=== PATIENT | female | born 1955 | race Caucasian/White ===

== ENCOUNTER 2019-09-26 16:02 | Inpatient (IN) | payer MEDICARE, OTHER ==
--- NOTE | 2019-09-26 16:59 | ERPHSYRPT ---
- History of Present Illness Time Seen by Provider: 09/26/19 16:27 Historian: patient Exam Limitations: no limitations Patient Subjective Stated Complaint: to er c/o vomitting and abd pain x 2days. Triage Nursing Assessment: PT to er vomiting and abd pain pt arrives pale clammy , sweating present afebrile, a@ox3. pt states sharp stabbing constant pain across lower abd. pt gaurded with movement Physician History: Patient c/o lower abdominal pain x 3 days - /, constant, aggravated by pushing on it and trying to get up , decreases with laying flat, non-radiating, associated with nausea, vomiting - denies hematemesis/eating unusual foods/trauma/similar abdominal pain before/ diarrhoea/ new meds - pt. reports hard stools x few days - reports chills, no fever - she last ate last night, has not eaten all day today Timing/Duration: day(s) (3) Activities at Onset: none Quality: fullness, pressure Abdominal Pain Onset Location: RLQ, suprapubic Pain Radiation: no radiation Severity of Pain-Max: moderate Severity of Pain-Current: moderate Modifying Factors: Improves With: coughing, lying down, movement Associated Symptoms: fever/chills, loss of appetite, nausea, vomiting Previous symptoms: no prior history Allergies/Adverse Reactions: No Known Drug Allergies Allergy (Unverified 09/26/19 16:30) Home Medications: Lisinopril [Zestril] 30 mg PO HS 09/26/19 [History] Nebivolol HCl [Bystolic] 10 mg PO BID 09/26/19 [History] Hx Influenza Vaccination/Date Given: Yes - Review of Systems Constitutional: Chills, No Fever Eyes: No Symptoms Ears, Nose, & Throat: No Symptoms Respiratory: No Symptoms Cardiac: No Symptoms Abdominal/Gastrointestinal: Abdominal Pain, Nausea, Vomiting, Constipation, Appetite Changes Genitourinary Symptoms: No Symptoms Musculoskeletal: No Symptoms Skin: No Symptoms Neurological: No Symptoms Psychological: No Symptoms Endocrine: No Symptoms Hematologic/Lymphatic: No Symptoms Immunological/Allergic: No Symptoms All Other Systems: Reviewed and Negative - Past Medical History Cardiac History: Hypertension - Past Surgical History Past Surgical History: Yes Gastrointestinal: Cholecystectomy - Social History Smoking Status: Current every day smoker Drug Use: none - Nursing Vital Signs Nursing Vital Signs: Initial Vital Signs Temperature 97.9 F 09/26/19 16:23 Pulse Rate 83 09/26/19 16:23 Respiratory Rate 16 09/26/19 16:23 Blood Pressure 141/65 09/26/19 16:23 O2 Sat by Pulse Oximetry 94 L 09/26/19 16:23 Pain Scale Pain Intensity 4 - Physical Exam General Appearance: no apparent distress, mild distress Eye Exam: PERRL/EOMI, eyes nml inspection Ears, Nose, Throat Exam: normal ENT inspection, TMs normal, pharynx normal, moist mucous membranes Neck Exam: normal inspection, non-tender, supple, full range of motion Respiratory Exam: normal breath sounds Cardiovascular Exam: regular rate/rhythm, normal heart sounds, normal peripheral pulses Gastrointestinal/Abdomen Exam: soft, normal bowel sounds, tenderness Pelvic Exam: deferred Rectal Exam: deferred Back Exam: normal inspection Extremity Exam: normal inspection Neurologic Exam: alert, oriented x 3, cooperative Skin Exam: normal color Lymphatic Exam: No adenopathy SpO2 Interpretation: normal SpO2: 94 O2 Delivery: Room Air - Course EKG Interpreted by Me: Sinus Rhythm, NORMAL AXIS, NORMAL INTERVALS, NORMAL QRS Rhythm Strip: Normal Sinus Rhythm Ordered Tests: Active Orders 24 hr Category Date Time Status EKG-ER Only STAT Care 09/26/19 18:01 Active IV Insertion STAT Care 09/26/19 17:00 Active ABDOMEN AND PELVIS W/0 CONTRAS [CT] Stat Exams 09/26/19 17:00 Taken CBC W DIFF Stat Lab 09/26/19 17:35 Completed CMP Stat Lab 09/26/19 17:35 Completed LIPASE Stat Lab 09/26/19 17:35 Completed Manual Differential NC Stat Lab 09/26/19 17:35 Completed PROTIME WITH INR Stat Lab 09/26/19 18:25 Completed PTT Stat Lab 09/26/19 18:25 Completed UA W/RFX UR CULTURE Stat Lab 09/26/19 16:59 Uncollected Transfer Order Routine Transfer 09/26/19 Ordered Medication Summary Discontinued Medications Generic Name Dose Route Start Last Admin Trade Name Freq PRN Reason Stop Dose Admin Sodium Chloride 1,000 mls @ 999 mls/hr 09/26/19 17:00 09/26/19 18:31 Sodium Chloride 0.9% 1000 Ml IV 09/26/19 18:00 999 mls/hr .Q1H1M STA Administration Sodium Chloride Confirm 09/26/19 17:13 Sodium Chloride 0.9% 1000 Ml Administered 09/26/19 17:14 Dose 1,000 mls @ ud .ROUTE .STK-MED ONE Sodium Chloride Confirm 09/26/19 18:28 Sodium Chloride 0.9% 1000 Ml Administered 09/26/19 18:29 Dose 1,000 mls @ ud .ROUTE .STK-MED ONE Lab/Rad Data: Laboratory Result Diagrams 09/26/19 17:35 09/26/19 17:35 Laboratory Results 09/26/19 09/26/19 09/26/19 Range/Units 18:25 17:35 17:35 WBC 14.1 H (4.0-10.5) K/mm3 RBC 6.09 H (4.1-5.4) M/mm3 Hgb 18.6 H (12.0-16.0) gm/dl Hct 53.5 H (35-47) % MCV 87.8 (78-100) fl MCH 30.5 (26-32) pg MCHC 34.8 (32-36) g/dl RDW 13.9 (11.5-14.0) % Plt Count 259 (150-450) K/mm3 MPV 12.2 H (6-9.5) fl PT 13.2 H (9.95-12.35) SECONDS INR 1.16 (0.8-3.0) APTT 41.4 H (25.3-37.0) SECONDS Sodium 138 (137-145) mmol/L Potassium 3.6 (3.5-5.1) mmol/L Chloride 93 L (98-107) mmol/L Carbon Dioxide 24 (22-30) mmol/L Anion Gap 23.8 H (5-15) MEQ/L BUN 27 H (7-17) mg/dL Creatinine 2.22 H (0.52-1.04) mg/dL Estimated GFR 23.5 ML/MIN Glucose 145 H (74-106) mg/dL Calcium 11.1 H (8.4-10.2) mg/dL Total Bilirubin 2.00 H (0.2-1.3) mg/dL AST 36 (14-36) U/L ALT 20 (0-35) U/L Alkaline Phosphatase 91 (38-126) U/L Serum Total Protein 8.9 H (6.3-8.2) g/dL Albumin 4.5 (3.5-5.0) g/dL Lipase < 10 L (23-300) U/L - Progress Progress Note: 09/26/19 19:17 patient seen and examined in ED room 10 VSS on arrival - CBC revealed WBC count of 14.1 09/26/19 19:20 CMP- shows elevated BUN and CR- unknown if this is new/old CT abdomen and pelvis shows- acute appendicitis- please see CT report for complete details Discussed with surgeon - advised admission and surgery later today Discussed with .: Sadi Will see patient in: hospital (observation) - Departure Departure Disposition: Observation Clinical Impression: Acute appendicitis, DONAVAN (acute kidney injury) Condition: Fair Critical Care Time: No Critical Care Time(excluding separately billable procedures): Critical 30-74 mins (30 min) Referrals: Provider,Unknown [Primary Care Provider] -
[2019-09-26] MEDS ORDERED: Sodium Chloride 0.9% 1000 ML 1,000 ML IV STA (17:00)
[2019-09-26] MEDS ORDERED: Sodium Chloride 0.9% 1000 ML 0 ML ONE (17:13)
[2019-09-26 17:41] LABS: Hematocrit 53.5 % (35-47); Hemoglobin 18.6 gm/dl (12.0-16.0); Mean Cell Volume 87.8 fl (78-100); Mean Corpuscular Hemoglobin 30.5 pg (26-32); Mean Corpuscular Hgb Concent. 34.8 g/dl (32-36); Mean Platelet Volume 12.2 fl (6-9.5); Platelet Count 259 K/mm3 (150-450); Red Blood Count 6.09 M/mm3 (4.1-5.4); Red Cell Distribution Width 13.9 % (11.5-14.0); White Blood Count 14.1 K/mm3 (4.0-10.5)
[2019-09-26 17:55] LABS: ALBUMIN 4.5 g/dL (3.5-5.0); ALKALINE PHOSPHATASE 91 U/L (38-126); ANION GAP 23.8 MEQ/L (5-15); BLOOD UREA NITROGEN 27 mg/dL (7-17); CHLORIDE 93 mmol/L (98-107); Calcium 11.1 mg/dL (8.4-10.2); Carbon Dioxide 24 mmol/L (22-30); Creatinine 1 2.22 mg/dL (0.52-1.04); Glucose 145 mg/dL (74-106); Potassium 3.6 mmol/L (3.5-5.1); SGOT/AST 36 U/L (14-36); SODIUM 138 mmol/L (137-145); Total Protein 8.9 g/dL (6.3-8.2)
[2019-09-26 18:01] LABS: SGPT/ALT 20 U/L (0-35)
[2019-09-26 18:03] LABS: LIPASE < 10 U/L (23-300)
[2019-09-26] MEDS ORDERED: Sodium Chloride 0.9% 1000 ML 1,000 ML ONE ×2 (18:28→21:05)
[2019-09-26 18:36] LABS: INR 1.16 (0.8-3.0); PROTIME 13.2 SECONDS (9.95-12.35)
[2019-09-26 18:38] LABS: PTT 41.4 SECONDS (25.3-37.0)
[2019-09-26] MEDS ORDERED: Lactated Ringers 1,000 ML IV ONE ×2 (20:22→21:07)
[2019-09-26] MEDS ORDERED: Sensorcaine 0.25% 10 ML ONE (20:22)
--- NOTE | 2019-09-26 20:49 | XRAY ---
Indication: Abdomen pain, nausea, and vomiting 2 days. Multiple contiguous axial images obtained through the abdomen and pelvis without contrast as ordered. Comparison: None Lung bases demonstrate scattered fibrosis/scarring with tiny left effusion. Heart is borderline enlarged with small pericardial effusion. Fluid distended moderate hiatal hernia presumed from gastroesophageal reflux. Stomach is fluid distended. Appendix is prominent up to 1.4 cm in diameter with mild wall thickening, periappendiceal stranding, and appendicolith at base favoring acute appendicitis. Small right abdomen and tiny pelvic free fluid possibly reactive. No walled off fluid collection or free air. Small bowel loops are abnormally distended up to 3 cm with fluid leveling possibly reactive ileus. Some of the left abdomen small bowel loops demonstrates wall thickening/stranding possibly superimposed enteritis. Mild scattered descending and sigmoid diverticulosis. Previous cholecystectomy. Tiny hepatic calcified granulomas. Remaining liver, pancreas, spleen, adrenal glands, kidneys, ureters, bladder, and uterus appear unremarkable for noncontrast exam. Moderate scattered aortoiliac calcifications without AAA. Osseous structures themselves is mild/moderate degenerative changes throughout the thoracolumbar spine. Indeterminant 1 cm round L4 vertebral body sclerotic lesion. Bilateral perineural cysts approximately S3-S4 levels. Impression: 1. Abnormal appendix as detailed favoring acute appendicitis. Small free fluid presumed reactive. 2. Fluid distended stomach and small bowel loops with fluid leveling possibly reactive ileus. Also left abdomen small bowel loops with wall thickening/stranding possibly superimposed enteritis. Mild colonic diverticulosis. 3. Fluid distended hiatal hernia presumed from gastroesophageal reflux. 4. Borderline cardiomegaly with small pericardial effusion. 5. Multilevel degenerative spondylosis, indeterminant L4 sclerotic lesion, and bilateral sacral perineural cysts. CTDI 21.40
[2019-09-26] MEDS ORDERED: MEFOXIN IV ONE (21:03)
[2019-09-26] MEDS ORDERED: D5W 2 GM/100 ML IV ONE (21:03)
[2019-09-26] MEDS ORDERED: MEFOXIN 2 GM PREMIX** 2 GM/50 ML ML IV ONE (21:11)
[2019-09-26] MEDS ORDERED: Lactated Ringers 1,000 ML IV SCH (21:30)
[2019-09-26] MEDS ORDERED: DIPRIVAN 200 MG/20 ML IV ONE (21:47)
[2019-09-26] MEDS ORDERED: Zemuron 100 MG/10 ML ONE (21:47)
[2019-09-26] MEDS ORDERED: SUBLIMAZE 100 MCG/2 ML ONE (21:47)
[2019-09-26] MEDS ORDERED: Quelicin Fliptop 200 MG/10 ML ONE (21:47)
[2019-09-26] MEDS ORDERED: PHENYLEPHRINE HCL IV ONE (22:00)
[2019-09-26] MEDS ORDERED: MEFOXIN 2 GM PREMIX** 2 GM/50 ML ML IV SCH (22:00)
[2019-09-26] MEDS ORDERED: TORAdol 30 mg Injection ONE (22:04)
[2019-09-26] MEDS ORDERED: BRIDION 200MG/2ML IV ONE (22:04)
[2019-09-26] MEDS ORDERED: Decadron 4 MG INJ ONE (22:04)
[2019-09-26] MEDS ORDERED: Zofran 4 MG/2 ML VIAL ONE (22:04)
[2019-09-26] MEDS ORDERED: Lactated Ringers 2,000 ML IV ONE (22:26)
[2019-09-26] MEDS ORDERED: Lasix 20 MG/2 ML ONE (23:07)
[2019-09-26] MEDS ORDERED: Sodium Chloride 3 ML UD NEBULES IH ONE (23:19)
[2019-09-26] MEDS ORDERED: Xopenex 1.25 MG/0.5 ML UD NEBULE IH ONE ×2 (23:19→23:38)
[2019-09-27] MEDS: D5W/0.45NS W/ 20mEq KCl 1000 ML 1,000 ML IV SCH ×2 (01:55→14:30)
[2019-09-27] MEDS: Unasyn 3GM / NaCl 100ML 3 GM/100 ML IVPB IV SCH ×3 (01:55→17:38)
[2019-09-27] MEDS: MORPHINE SULFATE 2 MG INJ IV PRN ×2 (01:56→16:18)
[2019-09-27 02:05] LABS: Appearance CLOUDY (CLEAR); Bilirubin NEGATIVE (NEGATIVE); Blood MODERATE Ery/ul (0-5); Epithelial Cells RARE /HPF (FEW); Glucose NEGATIVE (NEGATIVE); Hyaline Casts 0-2 /LPF (0-2); Ketones NEGATIVE (NEGATIVE); Leukocyte Esterase NEGATIVE (NEGATIVE); Mucus SLIGHT /HPF (NEGATIVE); Nitrite NEGATIVE (NEGATIVE); Protein,Urine Dip 30 (Negative); Specific Gravity 1.011 (1.005-1.025); Urobilinogen NEGATIVE mg/dL (0-1); WBC 0-2 /HPF (0-5)
[2019-09-27 05:20] LABS: Hemoglobin 16.3 gm/dl (12.0-16.0); Mean Cell Volume 89.1 fl (78-100); Mean Corpuscular Hemoglobin 30.2 pg (26-32); Mean Platelet Volume 12.5 fl (6-9.5); Platelet Count 240 K/mm3 (150-450); Red Blood Count 5.39 M/mm3 (4.1-5.4); Red Cell Distribution Width 13.8 % (11.5-14.0); White Blood Count 10.6 K/mm3 (4.0-10.5)
[2019-09-27 05:43] LABS: BAND 11 % (0.0-2.0); Lymphocytes 27 % (24-44); Monocyte 10 % (0.0-12.0); Neutrophils 52 % (36.0-66.0); Platelet Estimate NORMAL (NORMAL); Total Cells Counted 100
--- NOTE | 2019-09-27 09:00 | XRAY ---
Indication: Cough. Status post appendectomy. Comparison: None Portable chest demonstrates bibasilar atelectasis, left greater than right. Upper lungs clear. No pneumothorax. Heart is borderline enlarged. Bony thorax intact. Impression: Bibasilar atelectasis and borderline cardiomegaly. Comment: Preliminary interpretation was made by [facility]. No discrepancy.
[2019-09-27] MEDS: Bystolic 5 MG PO SCH ×2 (10:42→21:15)
[2019-09-27] MEDS ORDERED: CEPACOL SORE THROAT LOZENGE PO PRN (18:08)
[2019-09-27] MEDS: Zestril 10 MG PO SCH (21:15)
[2019-09-28] MEDS: D5W/0.45NS W/ 20mEq KCl 1000 ML 1,000 ML IV SCH (02:28)
[2019-09-28] MEDS: MORPHINE SULFATE 2 MG INJ IV PRN (04:46)
[2019-09-28] MEDS: Zofran 4 MG/2 ML VIAL IV PRN (04:46)
[2019-09-28 05:07] LABS: Hematocrit 39.8 % (35-47); Hemoglobin 13.3 gm/dl (12.0-16.0); Mean Cell Volume 90.5 fl (78-100); Mean Corpuscular Hemoglobin 30.2 pg (26-32); Mean Corpuscular Hgb Concent. 33.4 g/dl (32-36); Mean Platelet Volume 12.4 fl (6-9.5); Platelet Count 215 K/mm3 (150-450); Red Cell Distribution Width 13.7 % (11.5-14.0); White Blood Count 12.3 K/mm3 (4.0-10.5)
[2019-09-28 05:19] LABS: ANION GAP 17.5 MEQ/L (5-15); Calcium 8.1 mg/dL (8.4-10.2); Creatinine 1 3.46 mg/dL (0.52-1.04); Potassium 4.2 mmol/L (3.5-5.1)
[2019-09-28] MEDS: Unasyn 3GM / NaCl 100ML 3 GM/100 ML IVPB IV SCH ×2 (06:09→17:36)
[2019-09-28] MEDS: NORCO 5/325 MG PO PRN ×3 (08:10→21:38)
[2019-09-28] MEDS: Bystolic 5 MG PO SCH ×2 (09:33→21:38)
[2019-09-28] MEDS ORDERED: Sodium Chloride 0.9% 500 ML 500 ML IV ONE (10:27)
[2019-09-28] MEDS ORDERED: Dulcolax 10 MG SUPP PR ONE (10:30)
[2019-09-28] MEDS: Dextrose 5% -0.45 NaCl 1000 ML 1,000 ML IV SCH ×2 (10:47→23:06)
[2019-09-28] MEDS ORDERED: CHLORASEPTIC SPRAY 180 ML PO PRN (20:14)
[2019-09-28] MEDS: Zestril 10 MG PO SCH (21:38)
[2019-09-29] MEDS: NORCO 5/325 MG PO PRN ×2 (03:00→14:23)
[2019-09-29 05:16] LABS: Hematocrit 35.7 % (35-47); Hemoglobin 11.6 gm/dl (12.0-16.0); Mean Cell Volume 92.2 fl (78-100); Mean Corpuscular Hgb Concent. 32.5 g/dl (32-36); Platelet Count 196 K/mm3 (150-450); Red Blood Count 3.87 M/mm3 (4.1-5.4); Red Cell Distribution Width 13.5 % (11.5-14.0); White Blood Count 14.1 K/mm3 (4.0-10.5)
[2019-09-29 05:17] LABS: Mean Corpuscular Hemoglobin 29.9 pg (26-32)
[2019-09-29 05:29] LABS: ANION GAP 14.2 MEQ/L (5-15); Creatinine 1 2.78 mg/dL (0.52-1.04); MAGNESIUM 1.7 mg/dL (1.6-2.3); Potassium 4.1 mmol/L (3.5-5.1)
[2019-09-29] MEDS: Unasyn 3GM / NaCl 100ML 3 GM/100 ML IVPB IV SCH (06:03)
[2019-09-29] MEDS: Zofran 4 MG/2 ML VIAL IV PRN (07:41)
[2019-09-29] MEDS: Bystolic 5 MG PO SCH ×2 (08:29→22:33)
[2019-09-29] MEDS: Dextrose 5% -0.45 NaCl 1000 ML 1,000 ML IV SCH (11:04)
--- NOTE | 2019-09-29 11:13 | HP ---
ADMISSION DIAGNOSIS: Acute appendicitis. HISTORY OF PRESENT ILLNESS: The patient is seen in the hallway proceeding the surgery. She had 24 hours of abdominal pain and some nausea. CT is positive. White count is elevated. MEDICATIONS: Two antihypertensives including lisinopril and Bystolic. ALLERGIES: NONE. PAST SURGICAL HISTORY: Cholecystectomy. SOCIAL HISTORY: Positive tobacco. Negative ETOH. FAMILY HISTORY: Negative. REVIEW OF SYSTEMS: CVS: Controlled hypertension. PULMONARY: History of tobacco abuse. GI: Present illness. : Negative. PHYSICAL EXAMINATION: She is moderately obese. She is tender in the right lower quadrant. VITAL SIGNS: Normal. CHEST: Clear. COR: Regular. ABDOMEN: Pain right lower quadrant. LAB DATA AND TESTS: White count elevated. CT positive for acute appendicitis. IMPRESSION: Acute appendicitis. Procedure discussed with her and she wishes to proceed. PLAN: Laparoscopic appendectomy.
--- NOTE | 2019-09-29 11:25 | OP ---
SURGERY DATE/TIME: 09/26/20192151 PREOPERATIVE DIAGNOSIS: Acute appendicitis. POSTOPERATIVE DIAGNOSIS: Acute perforated appendicitis of quite some age with multiple intra-abdominal abscesses. PROCEDURE: Laparoscopic appendectomy of a gangrenous perforated appendix with appendicolith and evacuation of multiple abscesses with drainage. SURGEON: Gigi Elizabeth M.D. ANESTHESIA: General. COMPLICATIONS: None. CONDITION: Stable. INDICATION: The patient presented to the emergency room with abdominal pain at least [address] positive. DESCRIPTION OF PROCEDURE: Taken to surgery. General anesthetic. Routine prep and drape. Veress needle inserted. Opening pressure of 1 and insufflating pressure 14. A 12 trocar introduced. Camera introduced. This was gross perforated acute abdomen unclear initially although very feculent in nature probably diverticular appendiceal although even upper abdominal ulcer is not ruled out. Left perisplenic, left suprahepatic, right suprahepatic, right gutter, left lower abdomen, right lower abdomen were all sequentially evacuated. Loose adhesions were mobilized with a blunt round instrument. The cecum was a little more dense and stuck and the inflammatory process was a hair worse on the right than the left. A little worse in the lower abdomen than upper abdomen. A gangrenous ruptured appendix with appendicolith was identified this was able to be mobilized and rolled up some. This side of the base was taken with cartridge satisfactorily. Appendix placed in a condom bag and removed. The field irrigated. 10 BEBO was down the right gutter secured with 2-0 PDS. The 12 site was closed with hole closure device with 0 Vicryl. Skin closed with 2-0 PDS. Sterile dressing applied. Findings discussed with the in the waiting room.
[2019-09-29] MEDS: FLAGYL 500 MG IVPB 500 MG/100 ML BAG IV SCH ×2 (14:15→22:34)
[2019-09-29] MEDS: ENOXAPARIN SODIUM SQ SCH (14:19)
--- NOTE | 2019-09-29 14:32 | XRAY ---
Indication: Bilateral leg pain. Two-dimensional sonogram and color Doppler imaging of the major venous vessels of the left and right leg was performed. Comparison: None No thrombus seen in the examined deep venous vessels of the left and right leg including greater saphenous vein. Veins demonstrate normal compressibility. Venous waveforms are normal with and without augmentation. Impression: Left and right legs negative for DVT.
[2019-09-29] MEDS ORDERED: Sodium Chloride 0.9% 500 ML 500 ML IV SCH (15:00)
[2019-09-29] MEDS: MERREM 500MG 500 MG in Sodium Chloride 100ML MINI-BAG PLUS 100 ML IV SCH (17:19)
[2019-09-29] MEDS: Zestril 10 MG PO SCH (22:45)
[2019-09-30] MEDS: NORCO 5/325 MG PO PRN (01:42)
[2019-09-30] MEDS: Zofran 4 MG/2 ML VIAL IV PRN ×3 (01:42→09:52)
[2019-09-30] MEDS: Dextrose 5% -0.45 NaCl 1000 ML 1,000 ML IV SCH ×2 (01:42→17:44)
[2019-09-30] MEDS: MORPHINE SULFATE 4 MG INJ IV PRN ×2 (04:07→09:53)
[2019-09-30] MEDS ORDERED: PROTONIX 40 MG IV IV ONE (04:49)
[2019-09-30 05:15] LABS: Hematocrit 36.3 % (35-47); Hemoglobin 12.1 gm/dl (12.0-16.0); Mean Cell Volume 91.2 fl (78-100); Mean Corpuscular Hemoglobin 30.4 pg (26-32); Mean Corpuscular Hgb Concent. 33.3 g/dl (32-36); Mean Platelet Volume 12.3 fl (6-9.5); Platelet Count 234 K/mm3 (150-450); Red Blood Count 3.98 M/mm3 (4.1-5.4); Red Cell Distribution Width 13.6 % (11.5-14.0); White Blood Count 17.2 K/mm3 (4.0-10.5)
[2019-09-30] MEDS: FLAGYL 500 MG IVPB 500 MG/100 ML BAG IV SCH (05:21)
[2019-09-30 05:29] LABS: ANION GAP 10.7 MEQ/L (5-15); BILIRUBIN,TOTAL 0.6 mg/dL (0.2-1.3); Calcium 8.4 mg/dL (8.4-10.2); Creatinine 1 1.75 mg/dL (0.52-1.04); Potassium 3.3 mmol/L (3.5-5.1); Total Protein 6.3 g/dL (6.3-8.2)
[2019-09-30 06:18] LABS: Lymphocytes 19 % (24-44); Monocyte 4 % (0.0-12.0); Neutrophils 77 % (36.0-66.0); Total Cells Counted 100
[2019-09-30 06:19] LABS: ANISOCYTOSIS 1+; Platelet Estimate NORMAL (NORMAL); Poikilocytosis 1+
[2019-09-30] MEDS: MERREM 500MG 500 MG in Sodium Chloride 100ML MINI-BAG PLUS 100 ML IV SCH (06:39)
[2019-09-30] MEDS ORDERED: Phenergan 25 MG INJ IV PRN (07:54)
[2019-09-30] MEDS ORDERED: Lasix 20 MG/2 ML IV SCH (08:00)
[2019-09-30] MEDS: CLINDAMYCIN-D5W 900 MG/50 ML*** 900 MG/50 ML BAG IV SCH ×3 (08:09→22:03)
[2019-09-30] MEDS: ENOXAPARIN SODIUM SQ SCH (08:46)
[2019-09-30] MEDS: LOPRESSOR 5 MG/5 ML INJECTION IV SCH ×3 (08:46→18:19)
[2019-09-30] MEDS: Bystolic 5 MG PO SCH ×2 (11:23→22:01)
--- NOTE | 2019-09-30 11:26 | XRAY ---
Indication: Epigastric pain, nausea, and vomiting. Status post appendectomy 4 days ago. Comparison: None KUB appears nonacute and nonobstructed with cholecystectomy clips and right lower quadrant surgical drainage tubing. Solid organs unremarkable. Osseous structures intact with mild degenerative changes throughout the spine. Visualized lung bases demonstrates bibasilar infiltrates versus atelectasis and tiny left effusion. Impression: 1. Negative KUB with surgical drainage in situ. 2. Incidental bibasilar infiltrates/atelectasis and tiny left effusion.
[2019-09-30] MEDS: Merrem 1 GM 1 G in Sodium Chloride 100ML MINI-BAG PLUS 100 ML IV SCH (17:44)
[2019-10-01] MEDS: LOPRESSOR 5 MG/5 ML INJECTION IV SCH ×4 (00:01→17:58)
[2019-10-01] MEDS: Dextrose 5% -0.45 NaCl 1000 ML 1,000 ML IV SCH ×2 (05:11→20:22)
[2019-10-01] MEDS: CLINDAMYCIN-D5W 900 MG/50 ML*** 900 MG/50 ML BAG IV SCH ×3 (05:12→20:23)
[2019-10-01 05:18] LABS: Hematocrit 32.3 % (35-47); Hemoglobin 10.7 gm/dl (12.0-16.0); Mean Cell Volume 92.3 fl (78-100); Mean Corpuscular Hemoglobin 30.6 pg (26-32); Mean Corpuscular Hgb Concent. 33.1 g/dl (32-36); Mean Platelet Volume 12.1 fl (6-9.5); Platelet Count 257 K/mm3 (150-450); Red Cell Distribution Width 13.8 % (11.5-14.0)
[2019-10-01 05:43] LABS: ALBUMIN 2.5 g/dL (3.5-5.0); ANION GAP 9.8 MEQ/L (5-15); BILIRUBIN,TOTAL 0.4 mg/dL (0.2-1.3); Creatinine 1 1.33 mg/dL (0.52-1.04); Potassium 3.5 mmol/L (3.5-5.1); Total Protein 5.4 g/dL (6.3-8.2)
[2019-10-01 05:52] LABS: BAND 2 % (0.0-2.0); Lymphocytes 19 % (24-44); Monocyte 1 % (0.0-12.0); Neutrophils 78 % (36.0-66.0); Platelet Estimate NORMAL (NORMAL); Total Cells Counted 100
[2019-10-01] MEDS: Merrem 1 GM 1 G in Sodium Chloride 100ML MINI-BAG PLUS 100 ML IV SCH (06:11)
[2019-10-01] MEDS ORDERED: PHARMACY DOSING REQUIRED: VANCOMYCIN IV ONE (08:15)
[2019-10-01] MEDS ORDERED: Lasix 20 MG/2 ML IV SCH (09:00)
[2019-10-01] MEDS: VANCOMYCIN 1 GRAM/200 ML BAG 1 GM/200 ML PIGGYBACK IV SCH (09:45)
[2019-10-01] MEDS: PROTONIX 40 MG IV IV SCH (09:50)
[2019-10-01] MEDS: Bystolic 5 MG PO SCH ×2 (09:53→20:23)
[2019-10-01] MEDS: ENOXAPARIN SODIUM SQ SCH (09:55)
[2019-10-01] MEDS ORDERED: MAXIPIME 1 GM** 1 G in Dextrose 5%/Water IV Soln. 100ML PLUS BAG 100 ML IV SCH (10:00)
[2019-10-01] MEDS: MAXIPIME 1 GM** 1 G in Dextrose 5%/Water IV Soln. 100ML PLUS BAG 100 ML IV SCH (13:34)
[2019-10-02] MEDS: LOPRESSOR 5 MG/5 ML INJECTION IV SCH ×3 (00:51→12:04)
[2019-10-02] MEDS: VANCOMYCIN 1 GRAM/200 ML BAG 1 GM/200 ML PIGGYBACK IV SCH (02:53)
[2019-10-02 04:55] LABS: Hematocrit 32.5 % (35-47); Hemoglobin 10.6 gm/dl (12.0-16.0); Mean Cell Volume 92.6 fl (78-100); Mean Corpuscular Hemoglobin 30.2 pg (26-32); Mean Corpuscular Hgb Concent. 32.6 g/dl (32-36); Mean Platelet Volume 11.6 fl (6-9.5); Platelet Count 272 K/mm3 (150-450); Red Blood Count 3.51 M/mm3 (4.1-5.4); Red Cell Distribution Width 13.7 % (11.5-14.0); White Blood Count 24.6 K/mm3 (4.0-10.5)
[2019-10-02 05:03] LABS: ALBUMIN 2.6 g/dL (3.5-5.0); ANION GAP 11.1 MEQ/L (5-15); BILIRUBIN,TOTAL 0.4 mg/dL (0.2-1.3); Calcium 8.2 mg/dL (8.4-10.2); Creatinine 1 1.08 mg/dL (0.52-1.04); Potassium 3.3 mmol/L (3.5-5.1); Total Protein 5.6 g/dL (6.3-8.2)
[2019-10-02 05:17] LABS: ANISOCYTOSIS RARE; BAND 1 % (0.0-2.0); Eosinophil 1 % (0.00-3.0); Lymphocytes 13 % (24-44); Monocyte 14 % (0.0-12.0); Neutrophils 71 % (36.0-66.0); Platelet Estimate NORMAL (NORMAL); Targert Cells RARE; Total Cells Counted 100; Toxic Granulation RARE
[2019-10-02] MEDS: Bystolic 5 MG PO SCH (08:12)
[2019-10-02] MEDS: ENOXAPARIN SODIUM SQ SCH (08:12)
[2019-10-02] MEDS: PROTONIX 40 MG IV IV SCH (08:12)
[2019-10-02] MEDS: CLINDAMYCIN-D5W 900 MG/50 ML*** 900 MG/50 ML BAG IV SCH ×3 (08:13→13:12)
[2019-10-02] MEDS: Dextrose 5% -0.45 NaCl 1000 ML 1,000 ML IV SCH (08:13)
[2019-10-02] MEDS ORDERED: Sodium Chloride 0.9% W/ 20 mEq KCl/LITER 1,000 ML IV SCH (10:30)
[2019-10-02 12:02] VITALS: BP 124/70; PULSE 80; O2SAT 95
[2019-10-02] MEDS: MAXIPIME 1 GM** 1 G in Dextrose 5%/Water IV Soln. 100ML PLUS BAG 100 ML IV SCH (12:04)
--- NOTE | 2019-10-02 19:49 | XRAY ---
Indication: Abdomen pain. Status post appendectomy. Abscess. Multiple contiguous axial images obtained through the abdomen and pelvis using 80 cc Isovue 370 contrast only. Comparison: September 26, 2019. Lung bases demonstrates new small bilateral pleural effusions with mild bibasilar compressive atelectasis. Heart remains enlarged. Again small hiatal hernia. There has been interval appendectomy with right abdomen percutaneous drainage tubing with the tip in the right lower quadrant. New small perihepatic and pelvic free fluid. Also new left mid abdomen 4.8 x 7.8 x 6.5 cm walled off fluid collection favoring abscess. Small and large bowel loops are mildly fluid distended with fluid leveling favoring ileus. Small bowel loops adjacent to the abscess demonstrates circumferential wall thickening and stranding, probable reactive. No free air. Again previous cholecystectomy and tiny calcified hepatic granulomas. Remaining liver, pancreas, spleen, adrenal glands, kidneys, ureters, bladder, and uterus appear unremarkable. Stable moderate aortoiliac calcifications. No AAA or pathological retroperitoneal lymphadenopathy. Impression: 1. Status post appendectomy with drainage tubing in situ. Small abdomen/pelvic free fluid with left midabdomen abscess as detailed. Small bowel wall thickening and stranding adjacent to abscess probably reactive. 2. Small and large bowel ileus. 3. Cardiomegaly with new bilateral pleural effusions concerning for cardiac decompensation versus fluid overload. 4. Again incidental small hiatal hernia. CTDI 18.68
== END 2019-10-02 15:50 | disposition short-term general hospital (02) | DRG 372 ==
LOC: ED 16:02 → MED SURG 21:33 → UNDOADMOB 21:33 → OBSVTOIN 21:33 → INTOOBSV 21:33 → OBSVTOIN 23:41 → MED SURG 23:41
PROVIDERS: ADMIT Surgery; ATTEND Surgery
DX: K35.33 Acute appendicitis with perforation, localized peritonitis, and gangrene, with abscess (principal); K68.11 Postprocedural retroperitoneal abscess; R11.2 Nausea with vomiting, unspecified; I10 Essential (primary) hypertension; R79.89 Other specified abnormal findings of blood chemistry; Z79.899 Other long term (current) drug therapy
CPT/HCPCS: 36000; 36415; 71045; 74018; 74176; 74177; 80048; 80053; 81001; 83690; 83735; 84484; 85025; 85027; 85610; 85730; 87077; 87086; 87186; 88304; 93005; 93970; 94640; 94760; 96360; 96365; 99140; 99284; 99291; J0295; J0330; J0692; J0694; J1100; J1650; J1885; J1940; J2270; J2370; J2405; J2550; J2704; J3010; A9270-GY; J3370

== ENCOUNTER 2019-10-20 19:31 | Emergency (ER) | payer MEDICARE, OTHER ==
--- NOTE | 2019-10-20 20:08 | ERPHSYRPT ---
- History of Present Illness Time Seen by Provider: 10/20/19 20:08 Historian: patient, family Exam Limitations: no limitations Physician History: 64 y/o white female presents after a laparoscopic appendectomy for a ruptured appendicitis approx 3 weeks ago. pt had post op intraabd abscesses necessitating drainage. he has mild epigastric abd pain. what she is primarily concerned about is sore throat and weakness. pt unable to take in oral intake secondary to sore throat. pt is scheduled for an upper endoscopy tomorrow. Timing/Duration: week(s) (1 to 2), worse Quality: sharpness, stabbing Abdominal Pain Onset Location: epigastric (mild ) Severity of Pain-Max: mild Severity of Pain-Current: mild Modifying Factors: Improves With: other (moderate to severe sore throat) Associated Symptoms: weakness, other (other sx secondary to intubation and surgical procedures) Allergies/Adverse Reactions: No Known Drug Allergies Allergy (Verified 10/20/19 20:26) Home Medications: Lisinopril [Zestril] 30 mg PO BID 09/26/19 [History] Nebivolol HCl [Bystolic] 10 mg PO BID 09/26/19 [History] Amlodipine Besylate 10 mg PO DAILY 10/20/19 [History] Clonidine HCl 0.1 mg [Catapres 0.1 MG] 0.1 mg PO BID 10/20/19 [History] Ferrous Sulfate 650 mg PO DIRECTIONS UNKNOWN 10/20/19 [History] Furosemide [Lasix] 20 mg PO DAILY 10/20/19 [History] Hydrochlorothiazide 25 mg PO DAILY 10/20/19 [History] Magnesium Oxide 800 mg PO BID 10/20/19 [History] Potassium Chloride 15 ml PO DAILY 10/20/19 [History] - Review of Systems Constitutional: Weakness Eyes: No Symptoms Ears, Nose, & Throat: Throat Pain Respiratory: No Symptoms Cardiac: No Symptoms Abdominal/Gastrointestinal: Abdominal Pain (mild epigastric), Dysphagia, Appetite Changes Genitourinary Symptoms: No Symptoms Musculoskeletal: No Symptoms Neurological: No Symptoms Psychological: No Symptoms Endocrine: No Symptoms Hematologic/Lymphatic: No Symptoms Immunological/Allergic: No Symptoms All Other Systems: Reviewed and Negative - Past Medical History Pertinent Past Medical History: Yes Neurological History: No Pertinent History ENT History: Cataracts Cardiac History: High Cholesterol, Hypertension Respiratory History: No Pertinent History Endocrine Medical History: No Pertinent History Musculoskeletal History: No Pertinent History GI Medical History: No Pertinent History, GERD History: No Pertinent History Psycho-Social History: No Pertinent History Female Reproductive Disorders: No Pertinent History - Past Surgical History Neuro Surgical History: No Pertinent History Cardiac: No Pertinent History Respiratory: No Pertinent History Genitourinary: No Pertinent History Musculoskeletal: No Pertinent History Female Surgical History: No Pertinent History - Social History How long have you smoked: 40 yrs Exposure to second hand smoke: No - Nursing Vital Signs Nursing Vital Signs: Initial Vital Signs Temperature 98.6 F 10/20/19 20:02 Pulse Rate 78 10/20/19 20:02 Respiratory Rate 16 10/20/19 20:02 Blood Pressure 173/75 10/20/19 20:02 O2 Sat by Pulse Oximetry 100 10/20/19 20:02 Pain Scale Pain Intensity 5 - Physical Exam General Appearance: mild distress, alert, anxiety Eye Exam: PERRL/EOMI, eyes nml inspection Ears, Nose, Throat Exam: normal ENT inspection, dry mucous membranes, pharyngeal erythema Neck Exam: normal inspection, non-tender, supple, full range of motion Respiratory Exam: normal breath sounds, lungs clear, airway intact, No chest tenderness, No respiratory distress Cardiovascular Exam: regular rate/rhythm, normal heart sounds, normal peripheral pulses Gastrointestinal/Abdomen Exam: soft, normal bowel sounds, tenderness (mild epigastric. incision sites clean dry and intact), No distention, No guarding, No rebound Pelvic Exam: not done Rectal Exam: not done Back Exam: normal inspection, normal range of motion, No CVA tenderness, No vertebral tenderness Extremity Exam: normal inspection, normal range of motion, pelvis stable Neurologic Exam: alert, oriented x 3, cooperative, hook loader II-XII nml as tested Skin Exam: normal color, warm, dry Lymphatic Exam: No adenopathy SpO2 Interpretation: normal O2 Delivery: Room Air Ordered Tests: Active Orders 24 hr Category Date Time Status IV Insertion STAT Care 10/20/19 20:39 Active ABDOMEN AND PELVIS W/0 CONTRAS [CT] Stat Exams 10/20/19 20:39 Taken AMYLASE Stat Lab 10/20/19 21:37 Completed CBC W DIFF Stat Lab 10/20/19 21:37 Completed CMP Stat Lab 10/20/19 21:37 Completed LIPASE Stat Lab 10/20/19 21:37 Completed Lactic Acid Stat Lab 10/20/19 21:50 Completed Manual Differential NC Stat Lab 10/20/19 21:37 Completed UA W/RFX UR CULTURE Stat Lab 10/20/19 20:39 Uncollected Medication Summary Generic Name Dose Route Start Last Admin Trade Name Lei PRN Reason Stop Dose Admin Lidocaine HCl 10 ml 10/20/19 21:36 10/20/19 22:04 Xylocaine Hcl Viscous * MM 11/19/19 21:35 10 ml PRN PRN Administration PAIN Discontinued Medications Generic Name Dose Route Start Last Admin Trade Name Lei PRN Reason Stop Dose Admin Hydrocodone Bitart/Acetaminophen 10 ml 10/20/19 21:38 10/20/19 22:15 Hydrocodone-Acetamin 2.5-108/5 Ml Solution PO 10/20/19 21:39 10 ml STAT STA Administration Sodium Chloride 1,000 mls @ 999 mls/hr 10/20/19 20:39 10/20/19 21:40 Sodium Chloride 0.9% 1000 Ml IV 10/20/19 21:39 999 mls/hr .Q1H1M STA Administration Sodium Chloride Confirm 10/20/19 21:38 Sodium Chloride 0.9% 1000 Ml Administered 10/20/19 21:39 Dose 1,000 mls @ ud .ROUTE .STK-MED ONE Ondansetron HCl 4 mg 10/20/19 20:39 10/20/19 21:39 Zofran 4 Mg/2 Ml Vial IV 10/20/19 20:40 4 mg STAT ONE Administration Ondansetron HCl Confirm 10/20/19 21:38 Zofran 4 Mg/2 Ml Vial Administered 10/20/19 21:39 Dose 4 mg .ROUTE .STK-MED ONE Lab/Rad Data: Laboratory Result Diagrams 10/20/19 21:37 10/20/19 21:37 Laboratory Results 10/20/19 10/20/19 10/20/19 Range/Units 21:50 21:37 21:37 WBC 17.2 H (4.0-10.5) K/mm3 RBC 2.91 L (4.1-5.4) M/mm3 Hgb 8.6 L (12.0-16.0) gm/dl Hct 26.3 L (35-47) % MCV 90.4 (78-100) fl MCH 29.6 (26-32) pg MCHC 32.7 (32-36) g/dl RDW 13.2 (11.5-14.0) % Plt Count 425 (150-450) K/mm3 MPV 10.9 H (6-9.5) fl Sodium 129 L (137-145) mmol/L Potassium 3.6 (3.5-5.1) mmol/L Chloride 91 L (98-107) mmol/L Carbon Dioxide 27 (22-30) mmol/L Anion Gap 14.8 (5-15) MEQ/L BUN 16 (7-17) mg/dL Creatinine 0.85 (0.52-1.04) mg/dL Estimated GFR > 60.0 ML/MIN Glucose 129 H (74-106) mg/dL Lactic Acid 1.4 (0.4-2.0) Calcium 8.9 (8.4-10.2) mg/dL Total Bilirubin 0.40 (0.2-1.3) mg/dL AST 18 (14-36) U/L ALT 14 (0-35) U/L Alkaline Phosphatase 88 (38-126) U/L Serum Total Protein 7.2 (6.3-8.2) g/dL Albumin 3.4 L (3.5-5.0) g/dL Amylase 58 (30-110) U/L Lipase 50 (23-300) U/L - Progress Progress: improved, pain not gone completely, re-examined Progress Note: 10/20/19 22:23 ct abd/pelvis-no evidence of intraabd fluid collection/abscess. persistent inflammatory changes in the central mesentery and in the pararenal space. thickening of wall of the distal esophagus possibly esophagitis. small bilat pleural effusion with atelectasis Counseled pt/family regarding: lab results, diagnosis, need for follow-up, rad results - Departure Departure Disposition: Home Clinical Impression: Esophagitis, Dysphagia Condition: Stable Critical Care Time: No Referrals: ARON OTT [Primary Care Provider] - Additional Instructions: clear liquids only. keep endoscopy appointment in the morning.
[2019-10-20] MEDS ORDERED: Sodium Chloride 0.9% 1000 ML 1,000 ML IV STA (20:39)
[2019-10-20] MEDS ORDERED: Zofran 4 MG/2 ML VIAL IV ONE (20:39)
[2019-10-20] MEDS ORDERED: XYLOCAINE HCl Viscous MM PRN (21:36)
[2019-10-20 21:37] LABS: Hematocrit 26.3 % (35-47); Hemoglobin 8.6 gm/dl (12.0-16.0); Mean Cell Volume 90.4 fl (78-100); Mean Corpuscular Hemoglobin 29.6 pg (26-32); Mean Corpuscular Hgb Concent. 32.7 g/dl (32-36); Mean Platelet Volume 10.9 fl (6-9.5); Platelet Count 425 K/mm3 (150-450); Red Blood Count 2.91 M/mm3 (4.1-5.4); Red Cell Distribution Width 13.2 % (11.5-14.0); White Blood Count 17.2 K/mm3 (4.0-10.5)
[2019-10-20] MEDS ORDERED: Sodium Chloride 0.9% 1000 ML 1,000 ML ONE (21:38)
[2019-10-20] MEDS ORDERED: HYDROCODONE-ACETAMIN 2.5-108/5 ML SOLUTION PO STA (21:38)
[2019-10-20] MEDS ORDERED: Zofran 4 MG/2 ML VIAL ONE (21:38)
[2019-10-20 21:48] LABS: ALBUMIN 3.4 g/dL (3.5-5.0); ALKALINE PHOSPHATASE 88 U/L (38-126); AMYLASE 58 U/L (30-110); ANION GAP 14.8 MEQ/L (5-15); BLOOD UREA NITROGEN 16 mg/dL (7-17); CHLORIDE 91 mmol/L (98-107); Calcium 8.9 mg/dL (8.4-10.2); Carbon Dioxide 27 mmol/L (22-30); Creatinine 1 0.85 mg/dL (0.52-1.04); Glucose 129 mg/dL (74-106); LIPASE 50 U/L (23-300); Potassium 3.6 mmol/L (3.5-5.1); SGOT/AST 18 U/L (14-36); SGPT/ALT 14 U/L (0-35); SODIUM 129 mmol/L (137-145); Total Protein 7.2 g/dL (6.3-8.2)
[2019-10-20] MEDS ORDERED: XYLOCAINE HCl Viscous ONE (22:01)
[2019-10-20 23:13] LABS: Absolute Neutrophil Ct (ANC) 13.94 (1.4-6.9); Eosinophil 1 % (0.00-3.0); Lymphocytes 11 % (24-44); Monocyte 7 % (0.0-12.0); Neutrophils 81 % (36.0-66.0); Platelet Estimate NORMAL (NORMAL); Total Cells Counted 100
[2019-10-20 23:19] VITALS: BP 143/68; PULSE 71; O2SAT 96
--- NOTE | 2019-10-21 08:59 | XRAY ---
Indication: Abdomen pain and difficulty swallowing. Multiple contiguous axial images obtained through the abdomen and pelvis without contrast as ordered. Comparison: October 02, 2019. Lung bases again demonstrates cardiomegaly, bibasilar effusions/atelectasis, and small hiatal hernia. Stomach is mildly fluid distended. Duodenum demonstrates mild circumferential wall thickening with stranding favoring duodenitis. Incidental descending and sigmoid diverticulosis. Again previous cholecystectomy and appendectomy. No walled off fluid collection or free fluid/air. Stable tiny hepatic calcified granulomas. Remaining liver, pancreas, spleen, adrenal glands, kidneys, ureters, bladder, and uterus appear unremarkable for noncontrast exam. Stable scattered aortoiliac calcifications without AAA. Impression: 1. Duodenitis without complications. 2. Incidental hiatal hernia and colonic diverticulosis without diverticulitis. 3. Again cardiomegaly with bilateral pleural effusions, either cardiac decompensation versus fluid overload. Comment: Preliminary interpretation was made by C. No critical discrepancy. CTDI 13.67
== END 2019-10-20 23:19 | disposition home or self-care (01) ==
LOC: ED 19:31
DX: K20.9 Esophagitis, unspecified (principal); R13.10 Dysphagia, unspecified; Z79.899 Other long term (current) drug therapy; R10.13 Epigastric pain; E78.00 Pure hypercholesterolemia, unspecified; I10 Essential (primary) hypertension
CPT/HCPCS: 36000; 36415; 74176; 80053; 82150; 83605; 83690; 85025; 96374; 99284; J2405; A9270-GY

== ENCOUNTER 2019-10-22 13:05 | Inpatient (IN) | payer MEDICARE, OTHER ==
[2019-10-22] MEDS ORDERED: Sodium Chloride 0.9% 1000 ML 1,000 ML IV STA (13:48)
--- NOTE | 2019-10-22 13:53 | ERPHSYRPT ---
- History of Present Illness Time Seen by Provider: 10/22/19 13:25 Source: patient Exam Limitations: no limitations Patient Subjective Stated Complaint: pt here from drs office for low b/p and weakness, pt has surgery recently for an appy Triage Nursing Assessment: pt arrived per wc alert, pale, resp easy, skin warm and dry, scabs to incision site, no redness noted. moves all ext well Physician History: Patient has been feeling dizzy for the last two days. Patient has had poor oral intake for the last two weeks since being discharged from the hospital after having a ruptured appendix with abscess one month ago. Patient was referred to the emergency department due to having hypotension and being symptomatic after adjusting her hypertension medications. Patient states she had a swallow study yesterday due to her swallowing difficulties. Timing/Duration: day(s) (2) Severity: moderate Modifying Factors: Worsens With: other (eating) Associated Symptoms: No nausea, No vomiting, No abdominal pain, No shortness of breath, No heartburn, No diaphoresis, No cough, No chills, No chest pain, No fever, No headaches, No loss of appetite, No malaise, No rash, No syncope, No seizure, No weakness Allergies/Adverse Reactions: No Known Drug Allergies Allergy (Verified 10/22/19 13:26) Home Medications: Lisinopril [Zestril] 30 mg PO DAILY 09/26/19 [History] Nebivolol HCl [Bystolic] 10 mg PO BID 09/26/19 [History] Clonidine HCl 0.1 mg [Catapres 0.1 MG] 0.1 mg PO BID 10/20/19 [History] Ferrous Sulfate 650 mg PO DIRECTIONS UNKNOWN 10/20/19 [History] Furosemide [Lasix] 20 mg PO DAILY 10/20/19 [History] Magnesium Oxide 400 mg PO BID 10/20/19 [History] Potassium Chloride 15 ml PO DAILY 10/20/19 [History] Hx Tetanus, Diphtheria Vaccination/Date Given: No Hx Influenza Vaccination/Date Given: Yes Hx Pneumococcal Vaccination/Date Given: No Immunizations Up to Date: Yes - Review of Systems Constitutional: No Fever, No Chills Eyes: No Eye Pain, No Eye Redness, No Vision Changes Ears, Nose, & Throat: Throat Pain, Painful Swallowing, No Mouth Pain, No Mouth Swelling Respiratory: No Cough, No Dyspnea Cardiac: No Chest Pain, No Edema, No Palpitations, No Syncope Abdominal/Gastrointestinal: No Abdominal Pain, No Nausea, No Vomiting, No Diarrhea Genitourinary Symptoms: No Dysuria, No Hematuria, No Flank Pain Musculoskeletal: No Back Pain, No Neck Pain Skin: No Rash Neurological: No Dizziness, No Focal Weakness, No Headache, No Parasthesia, No Sensory Changes, No Tremors Psychological: No Symptoms Endocrine: No Polydipsia, No Excessive Sweating Hematologic/Lymphatic: No Easy Bleeding, No Easy Bruising All Other Systems: Reviewed and Negative - Past Medical History Pertinent Past Medical History: Yes Neurological History: No Pertinent History ENT History: Cataracts Cardiac History: High Cholesterol, Hypertension Respiratory History: No Pertinent History Endocrine Medical History: No Pertinent History Musculoskeletal History: No Pertinent History GI Medical History: No Pertinent History, GERD History: No Pertinent History Psycho-Social History: No Pertinent History Female Reproductive Disorders: No Pertinent History - Past Surgical History Past Surgical History: Yes Neuro Surgical History: No Pertinent History Cardiac: No Pertinent History Respiratory: No Pertinent History Gastrointestinal: Appendectomy, Cholecystectomy Genitourinary: No Pertinent History Musculoskeletal: No Pertinent History Female Surgical History: No Pertinent History - Social History Smoking Status: Former smoker How long have you smoked: 40 yrs Exposure to second hand smoke: No Drug Use: none Patient Lives Alone: No - Female History Hx Last Menstrual Period: post Hx Now: No - Nursing Vital Signs Nursing Vital Signs: Initial Vital Signs Pulse Rate 66 10/22/19 13:15 Respiratory Rate 16 10/22/19 13:15 Blood Pressure 92/48 10/22/19 13:15 O2 Sat by Pulse Oximetry 99 10/22/19 13:15 Pain Scale Pain Intensity 0 - Physical Exam General Appearance: no apparent distress, alert Eye Exam: PERRL/EOMI, eyes nml inspection, No scleral icterus, No pale conjunctivae Ears, Nose, Throat Exam: normal ENT inspection, TMs normal, pharynx normal, moist mucous membranes Neck Exam: normal inspection, non-tender, supple, full range of motion, No Brudzinski, No Kernig's, No JVD, No lymphadenopathy Respiratory Exam: normal breath sounds, lungs clear, airway intact, No respiratory distress, No diminished breath sounds, No accessory muscle use, No prolonged expirations, No crackles/rales, No rhonchi, No wheezing Cardiovascular Exam: regular rate/rhythm, normal heart sounds, normal peripheral pulses, capillary refill <2 sec Gastrointestinal/Abdomen Exam: soft, normal bowel sounds, No tenderness, No mass Back Exam: normal inspection, normal range of motion, No CVA tenderness, No vertebral tenderness Extremity Exam: normal inspection, normal range of motion, pelvis stable Neurologic Exam: alert, oriented x 3, cooperative, nremt II-XII nml as tested, normal mood/affect, sensation nml, No motor deficits Skin Exam: normal color, warm, dry, No rash, No petechiae, No jaundice Lymphatic Exam: No adenopathy SpO2 Interpretation: normal SpO2: 99 O2 Delivery: Room Air - Course Nursing assessment & vital signs reviewed: Yes EKG Interpreted by Me: RATE (63), Sinus Rhythm, LAFB, NORMAL INTERVALS, NORMAL QRS, NORMAL ST-T, Other (negative previous EKG for comparison) - Radiology Exams Chest X-ray Interpretation: Reviewed by me, Other (per radiologist interpretation: Stable borderline cardiomegaly. Negative for any acute pneumonic process or CHF with no focal infiltrate, consolidation, or large effusion.) Ordered Tests: Active Orders 24 hr Category Date Time Status EKG-ER Only STAT Care 10/22/19 13:48 Active IV Insertion STAT Care 10/22/19 13:48 Active Orthostatic Vital Signs STAT Care 10/22/19 13:47 Active CHEST 1 VIEW (PORTABLE) Stat Exams 10/22/19 13:48 Completed AMYLASE Stat Lab 10/22/19 14:14 Completed BLOOD CULTURE Stat Lab 10/22/19 14:32 Received CBC W DIFF Stat Lab 10/22/19 14:14 Completed CMP Stat Lab 10/22/19 14:14 Completed CULTURE,URINE Stat Lab 10/22/19 13:48 Ordered LIPASE Stat Lab 10/22/19 14:14 Completed Lactic Acid Stat Lab 10/22/19 14:05 Completed MAGNESIUM Routine Lab 10/22/19 14:14 Completed Manual Differential NC Stat Lab 10/22/19 14:14 Completed PROTIME WITH INR Stat Lab 10/22/19 14:14 Completed TROPONIN Q3H Lab 10/22/19 14:14 Completed TROPONIN Q3H Lab 10/22/19 17:20 Completed TROPONIN Q3H Lab 10/22/19 20:00 Ordered TROPONIN Q3H Lab 10/22/19 23:00 Ordered TROPONIN Q3H Lab 10/23/19 02:00 Ordered UA W/RFX UR CULTURE Stat Lab 10/22/19 16:47 Completed Transfer Order Routine Transfer 10/22/19 Ordered Medication Summary Discontinued Medications Generic Name Dose Route Start Last Admin Trade Name Lei PRN Reason Stop Dose Admin Sodium Chloride 1,000 mls @ 999 mls/hr 10/22/19 13:48 10/22/19 16:23 Sodium Chloride 0.9% 1000 Ml IV 10/22/19 14:48 999 mls/hr .Q1H1M STA Administration Sodium Chloride Confirm 10/22/19 14:38 Sodium Chloride 0.9% 1000 Ml Administered 10/22/19 14:39 Dose 1,000 mls @ ud .ROUTE .STK-MED ONE Lab/Rad Data: Laboratory Result Diagrams 10/22/19 14:14 10/22/19 14:14 Laboratory Results 10/22/19 10/22/19 10/22/19 Range/Units 17:20 16:47 14:14 WBC (4.0-10.5) K/mm3 RBC (4.1-5.4) M/mm3 Hgb (12.0-16.0) gm/dl Hct (35-47) % MCV (78-100) fl MCH (26-32) pg MCHC (32-36) g/dl RDW (11.5-14.0) % Plt Count (150-450) K/mm3 MPV (6-9.5) fl Segmented Neutrophils (36.0-66.0) % Band Neutrophils (0.0-2.0) % Lymphocytes (Manual) (24-44) % Monocytes (Manual) (0.0-12.0) % Hypochromia Toxic Granulation Platelet Estimate (NORMAL) RBC Morphology Anisocytosis PT (9.95-12.35) SECONDS INR (0.8-3.0) Sodium (137-145) mmol/L Potassium (3.5-5.1) mmol/L Chloride (98-107) mmol/L Carbon Dioxide (22-30) mmol/L Anion Gap (5-15) MEQ/L BUN (7-17) mg/dL Creatinine (0.52-1.04) mg/dL Estimated GFR ML/MIN Glucose (74-106) mg/dL Lactic Acid (0.4-2.0) Calcium (8.4-10.2) mg/dL Magnesium 1.8 (1.6-2.3) mg/dL Total Bilirubin (0.2-1.3) mg/dL AST (14-36) U/L ALT (0-35) U/L Alkaline Phosphatase (38-126) U/L Troponin I < 0.012 < 0.012 (0.000-0.034) ng/mL Serum Total Protein (6.3-8.2) g/dL Albumin (3.5-5.0) g/dL Amylase (30-110) U/L Lipase (23-300) U/L Urine Color YELLOW (YELLOW) Urine Appearance SLIGHTLY CLOUDY (CLEAR) Urine pH 6.0 (5-6) Ur Specific [place] 1.014 (1.005-1.025) Urine Protein NEGATIVE (Negative) Urine Ketones NEGATIVE (NEGATIVE) Urine Blood NEGATIVE (0-5) Osman/ul Urine Nitrite NEGATIVE (NEGATIVE) Urine Bilirubin NEGATIVE (NEGATIVE) Urine Urobilinogen NEGATIVE (0-1) mg/dL Ur Leukocyte Esterase NEGATIVE (NEGATIVE) Urine WBC (Auto) 3-5 (0-5) /HPF Urine RBC (Auto) 0-2 (0-2) /HPF U Epithel Cells (Auto) RARE (FEW) /HPF Urine Bacteria (Auto) RARE (NEGATIVE) /HPF Urine Mucus (Auto) SLIGHT (NEGATIVE) /HPF Urine Culture Reflexed ORDERED SEPARATELY (NO) Urine Glucose NEGATIVE (NEGATIVE) mg/dL 10/22/19 10/22/19 10/22/19 Range/Units 14:14 14:14 14:14 WBC 17.1 H (4.0-10.5) K/mm3 RBC 2.45 L (4.1-5.4) M/mm3 Hgb 7.2 L (12.0-16.0) gm/dl Hct 22.1 L (35-47) % MCV 90.2 (78-100) fl MCH 29.4 (26-32) pg MCHC 32.6 (32-36) g/dl RDW 13.5 (11.5-14.0) % Plt Count 463 H (150-450) K/mm3 MPV 10.7 H (6-9.5) fl Segmented Neutrophils 86 H (36.0-66.0) % Band Neutrophils 1 (0.0-2.0) % Lymphocytes (Manual) 10 L (24-44) % Monocytes (Manual) 3 (0.0-12.0) % Hypochromia 1+ Toxic Granulation 2+ Platelet Estimate INCREASED (NORMAL) RBC Morphology ABNORMAL Anisocytosis 1+ PT 13.2 H (9.95-12.35) SECONDS INR 1.16 (0.8-3.0) Sodium 131 L (137-145) mmol/L Potassium 3.7 (3.5-5.1) mmol/L Chloride 93 L (98-107) mmol/L Carbon Dioxide 27 (22-30) mmol/L Anion Gap 13.9 (5-15) MEQ/L BUN 29 H (7-17) mg/dL Creatinine 1.15 H (0.52-1.04) mg/dL Estimated GFR 50.2 ML/MIN Glucose 113 H (74-106) mg/dL Lactic Acid (0.4-2.0) Calcium 8.9 (8.4-10.2) mg/dL Magnesium (1.6-2.3) mg/dL Total Bilirubin 0.30 (0.2-1.3) mg/dL AST 19 (14-36) U/L ALT 14 (0-35) U/L Alkaline Phosphatase 89 (38-126) U/L Troponin I (0.000-0.034) ng/mL Serum Total Protein 7.1 (6.3-8.2) g/dL Albumin 3.4 L (3.5-5.0) g/dL Amylase 51 (30-110) U/L Lipase 31 (23-300) U/L Urine Color (YELLOW) Urine Appearance (CLEAR) Urine pH (5-6) Ur Specific [place] (1.005-1.025) Urine Protein (Negative) Urine Ketones (NEGATIVE) Urine Blood (0-5) Osman/ul Urine Nitrite (NEGATIVE) Urine Bilirubin (NEGATIVE) Urine Urobilinogen (0-1) mg/dL Ur Leukocyte Esterase (NEGATIVE) Urine WBC (Auto) (0-5) /HPF Urine RBC (Auto) (0-2) /HPF U Epithel Cells (Auto) (FEW) /HPF Urine Bacteria (Auto) (NEGATIVE) /HPF Urine Mucus (Auto) (NEGATIVE) /HPF Urine Culture Reflexed (NO) Urine Glucose (NEGATIVE) mg/dL 10/22/19 Range/Units 14:05 WBC (4.0-10.5) K/mm3 RBC (4.1-5.4) M/mm3 Hgb (12.0-16.0) gm/dl Hct (35-47) % MCV (78-100) fl MCH (26-32) pg MCHC (32-36) g/dl RDW (11.5-14.0) % Plt Count (150-450) K/mm3 MPV (6-9.5) fl Segmented Neutrophils (36.0-66.0) % Band Neutrophils (0.0-2.0) % Lymphocytes (Manual) (24-44) % Monocytes (Manual) (0.0-12.0) % Hypochromia Toxic Granulation Platelet Estimate (NORMAL) RBC Morphology Anisocytosis PT (9.95-12.35) SECONDS INR (0.8-3.0) Sodium (137-145) mmol/L Potassium (3.5-5.1) mmol/L Chloride (98-107) mmol/L Carbon Dioxide (22-30) mmol/L Anion Gap (5-15) MEQ/L BUN (7-17) mg/dL Creatinine (0.52-1.04) mg/dL Estimated GFR ML/MIN Glucose (74-106) mg/dL Lactic Acid 1.3 (0.4-2.0) Calcium (8.4-10.2) mg/dL Magnesium (1.6-2.3) mg/dL Total Bilirubin (0.2-1.3) mg/dL AST (14-36) U/L ALT (0-35) U/L Alkaline Phosphatase (38-126) U/L Troponin I (0.000-0.034) ng/mL Serum Total Protein (6.3-8.2) g/dL Albumin (3.5-5.0) g/dL Amylase (30-110) U/L Lipase (23-300) U/L Urine Color (YELLOW) Urine Appearance (CLEAR) Urine pH (5-6) Ur Specific [place] (1.005-1.025) Urine Protein (Negative) Urine Ketones (NEGATIVE) Urine Blood (0-5) Osman/ul Urine Nitrite (NEGATIVE) Urine Bilirubin (NEGATIVE) Urine Urobilinogen (0-1) mg/dL Ur Leukocyte Esterase (NEGATIVE) Urine WBC (Auto) (0-5) /HPF Urine RBC (Auto) (0-2) /HPF U Epithel Cells (Auto) (FEW) /HPF Urine Bacteria (Auto) (NEGATIVE) /HPF Urine Mucus (Auto) (NEGATIVE) /HPF Urine Culture Reflexed (NO) Urine Glucose (NEGATIVE) mg/dL - Progress Progress: improved Progress Note: 10/22/19 17:[address] Carrero, general surgery covering for Dr Elizabeth about the patient's presentation. Dr Carrero agrees with patient being admitted and states he will tell Dr Elizabeth to evaluate the patient in the am of 10/23/2019. 10/22/19 17:40 and 17:[address] Ott, hospitalist about the patient at 17:40. @17:50, Dr Ott accepted the patient for observation to [facility] after I discussed with the patient that the patient wanted Dr Ott to be her physician as another physician helped take care of her in her last hospital stay. Discussed with : Lilibeth Will see patient in: hospital (observation) Counseled pt/family regarding: lab results, diagnosis, need for follow-up, rad results - Departure Departure Disposition: Observation (@ [facility] telemetry to Dr Ott) Clinical Impression: DONAVAN (acute kidney injury), Dizziness, Acute anemia Hypertension Qualifiers: Hypertension type: essential hypertension Qualified Code(s): I10 - Essential ( primary) hypertension Condition: Fair Critical Care Time: No Referrals: ARON OTT [Primary Care Provider] -
[2019-10-22 14:27] LABS: Hematocrit 22.1 % (35-47); Hemoglobin 7.2 gm/dl (12.0-16.0); Mean Cell Volume 90.2 fl (78-100); Mean Corpuscular Hemoglobin 29.4 pg (26-32); Mean Corpuscular Hgb Concent. 32.6 g/dl (32-36); Mean Platelet Volume 10.7 fl (6-9.5); Platelet Count 463 K/mm3 (150-450); Red Blood Count 2.45 M/mm3 (4.1-5.4); Red Cell Distribution Width 13.5 % (11.5-14.0); White Blood Count 17.1 K/mm3 (4.0-10.5)
--- NOTE | 2019-10-22 14:36 | XRAY ---
Indication: Dizziness. Hypertension. Comparison: September 26, 2019. Portable chest better inflated with clearing of previous bibasilar atelectasis with minimal left residual. No focal infiltrate, consolidation, or large effusion. Heart remains borderline enlarged. Impression: Stable borderline cardiomegaly. Negative for acute pneumonic process or CHF.
[2019-10-22] MEDS ORDERED: Sodium Chloride 0.9% 1000 ML 1,000 ML ONE (14:38)
[2019-10-22 14:44] LABS: ALBUMIN 3.4 g/dL (3.5-5.0); ANION GAP 13.9 MEQ/L (5-15); BILIRUBIN,TOTAL 0.3 mg/dL (0.2-1.3); Calcium 8.9 mg/dL (8.4-10.2); Creatinine 1 1.15 mg/dL (0.52-1.04); Potassium 3.7 mmol/L (3.5-5.1); Total Protein 7.1 g/dL (6.3-8.2)
[2019-10-22 14:55] LABS: MAGNESIUM 1.8 mg/dL (1.6-2.3)
[2019-10-22 14:57] LABS: TROPONIN < 0.012 ng/mL (0.000-0.034)
[2019-10-22 15:14] LABS: INR 1.16 (0.8-3.0); PROTIME 13.2 SECONDS (9.95-12.35)
[2019-10-22 16:58] LABS: ANISOCYTOSIS 1+; BAND 1 % (0.0-2.0); Hypochromia 1+; Lymphocytes 10 % (24-44); Monocyte 3 % (0.0-12.0); Neutrophils 86 % (36.0-66.0); Platelet Estimate INCREASED (NORMAL); Total Cells Counted 100; Toxic Granulation 2+
[2019-10-22 17:09] LABS: Appearance SLIGHTLY CLOUDY (CLEAR); Bacteria RARE /HPF (NEGATIVE); Bilirubin NEGATIVE (NEGATIVE); Blood NEGATIVE Ery/ul (0-5); Epithelial Cells RARE /HPF (FEW); Glucose NEGATIVE (NEGATIVE); Ketones NEGATIVE (NEGATIVE); Leukocyte Esterase NEGATIVE (NEGATIVE); Mucus SLIGHT /HPF (NEGATIVE); Nitrite NEGATIVE (NEGATIVE); Protein,Urine Dip NEGATIVE (Negative); RBC 0-2 /HPF (0-2); Specific Gravity 1.014 (1.005-1.025); Urobilinogen NEGATIVE mg/dL (0-1)
[2019-10-22] MEDS ORDERED: MAG-OX 400 ONE (20:37)
[2019-10-22] MEDS: PROTONIX 40 MG IV IV SCH (20:43)
[2019-10-22] MEDS: Sodium Chloride 0.9% 1000 ML 1,000 ML IV SCH (20:43)
[2019-10-22] MEDS ORDERED: TYLENOL 325 MG PO PRN (20:47)
[2019-10-22] MEDS ORDERED: PHARMACY DOSING REQUEST MC ONE (20:54)
[2019-10-22] MEDS ORDERED: OMNIPEN 1GM / NaCl 100ML 100 ML ONE (21:52)
[2019-10-22] MEDS: OMNIPEN 1 GM IV SCH (21:56)
[2019-10-22] MEDS ORDERED: MAG-OX 400 PO ONE (22:00)
[2019-10-22 22:29] LABS: Iron 11 ug/dL (37-170); Iron Saturation 5 % (20-39); TIBC 223 ug/dL (265-462)
[2019-10-22 23:36] LABS: ABO TYPING A; Antibody Screen NEGATIVE (NEGATIVE); RH TYPING POSITIVE
[2019-10-22 23:40] LABS: CROSS MATCH (PRBC) COMPATIBLE (COMPATIBLE)
[2019-10-23] MEDS ORDERED: OMNIPEN 1GM / NaCl 100ML 100 ML ONE (03:41)
[2019-10-23] MEDS: OMNIPEN 1 GM IV SCH (03:48)
[2019-10-23 03:49] LABS: BLOOD UREA NITROGEN 23 mg/dL (7-17); CHLORIDE 100 mmol/L (98-107); Calcium 8.4 mg/dL (8.4-10.2); Carbon Dioxide 23 mmol/L (22-30); Creatinine 1 0.87 mg/dL (0.52-1.04); Glucose 97 mg/dL (74-106); Potassium 3.8 mmol/L (3.5-5.1); SODIUM 131 mmol/L (137-145)
[2019-10-23 05:21] LABS: Hematocrit 18.1 % (35-47); Mean Corpuscular Hemoglobin 29.1 pg (26-32); Mean Platelet Volume 11.6 fl (6-9.5); Platelet Count 415 K/mm3 (150-450); Red Blood Count 1.99 M/mm3 (4.1-5.4); Red Cell Distribution Width 13.6 % (11.5-14.0); White Blood Count 11.1 K/mm3 (4.0-10.5)
[2019-10-23 05:29] LABS: Hemoglobin 5.8 gm/dl (12.0-16.0)
[2019-10-23 05:57] LABS: ANISOCYTOSIS 1+; Hypochromia 2+; Lymphocytes 9 % (24-44); Monocyte 16 % (0.0-12.0); Neutrophils 75 % (36.0-66.0); Platelet Estimate NORMAL (NORMAL); Poikilocytosis 1+; Polychromasia 1+; Total Cells Counted 100
[2019-10-23] MEDS: Sodium Chloride 0.9% 500 ML 500 ML IV SCH (06:00)
--- NOTE | 2019-10-23 10:34 | HP ---
HISTORY OF PRESENT ILLNESS: This is a 64 year-old patient who I met on 10/14/2019. Before that she had a lengthy hospital both at [facility][1] after gangrenous appendix was removed with abscesses within her abdominal wall cavity. She was eventually transferred to [facility] to have another abscess drained by interventional radiology. I saw her on 10/14/2019. At that time she was complaining of some trouble swallowing ever since being intubated for the surgery at [facility][1] as well as leg swelling and poor appetite. We checked a BNP at that time which was elevated and arranged for an echo which she had done. She saw Dr. Mcfadden yesterday. When he saw her in the clinic she was hypotensive when standing and generally not feeling well so he sent her to the emergency department for evaluation. She had been to the emergency room one or two days before and had CT without contrast which I reviewed the report on that. She also had a modified barium swallow the day before with esophageal reflux. The patient was found to be anemic and slightly elevated creatinine as well as hyponatremia. In the emergency room, she was hypotensive on admission but this improved during her emergency room course. She was given fluids overnight. This morning her hemoglobin dropped to 5.8 and so she was transfused a unit of packed red blood cells and a second unit getting ready to start. The patient reports she feels dizzy when she gets up to walk at home. She is having trouble swallowing her pills as they would feel like they would get stuck in the back of her throat and then sometimes come back up. She states the thicker anything is the harder it is to swallow. She has been having this problem again since being intubated in late September for her emergent surgery. She had been on antibiotics at home when I saw her on 10/14/2019 and takes ampicillin by mouth and her white blood cell count was almost back down to normal at that time but in the emergency room it was elevated again. The patient reports she has had some dark colored stools but cannot really say if there is blood in them or not. She denies any abdominal pain except mild epigastric pain yesterday in the emergency room that improved with medication that they gave her. Her follow up with the surgeon is scheduled for later today. The surgeons were notified from the emergency room that the patient was here with problems as well as anemia. REVIEW OF SYSTEMS: No chest pain. No shortness of breath. No cough. No fever. Otherwise review of systems as noted in the history of present illness. MEDICATIONS: Please see the home medication reconciliation form. ALLERGIES: NKDA. PAST MEDICAL HISTORY: Hypertension. Tobacco abuse. PAST SURGICAL HISTORY: Cholecystectomy. Appendectomy just last month. SOCIAL HISTORY: She lives with her partner, Mr. Salter. She smokes but states she has been smoking a lot less and is thinking about quitting. No alcohol use. No drug use. FAMILY HISTORY: Noncontributory. PHYSICAL EXAMINATION: VITAL SIGNS: Temperature current 98F, temperature max 98F, heart rate 68, respiratory rate 20, blood pressure 132/60. Oxygen saturation 96% on room air. GENERAL: The patient is a pleasant talkative lady lying in bed in no acute distress. She is pale. CVS: She has a regular rate and rhythm. No murmurs, gallops or rubs. CHEST: Clear to auscultation when auscultated anteriorly. ABDOMEN: Small well healed scars, soft with hyperactive bowel sounds. No guarding. No rigidity. EXTREMITIES: No clubbing, cyanosis or edema. SKIN: Warm, dry and intact. LABORATORY DATA AND TESTS: Again, her hemoglobin was 7.2 in the emergency room and 5.8. White blood cell count was 17.1 and now 11.1. Sodium 131. Creatinine in the emergency room 1.1 and now 0.87. Iron levels are low. UA was negative. Stool was positive for blood. She has blood cultures and urine cultures in lab. She had a chest x-ray that was read as mild cardiomegaly and negative for acute pneumonic process. Please see the radiologist dictation for the full report. ASSESSMENT AND PLAN: 1) HYPOTENSION: Currently all of her anti-hypertensives are being held and her blood pressure is normal. 2) GI BLEED: The general surgeons have been consulted and plan to see her today with possible endoscopy. 3) IRON DEFICIENCY ANEMIA: Her iron levels were checked and were low. These were checked before transfusion. She is getting her second unit of packed red blood cells. 4) DYSPHAGIA: Again, hopefully she will have upper endoscopy today and if not we may need to order an esophagogram. She did have a modified barium swallowing just a couple days ago as an outpatient and was found to have esophageal reflux. 5) GASTROESOPHAGEAL REFLUX: She is on pantoprazole. 6) WEIGHT LOSS: Multifactorial due to her prolonged illness recently and also the swallowing problem. 7) LEUKOCYTOSIS: The etiology of this is unclear. With her white blood cell count being all the way to 17,000 when it had been 10,000. When I saw her on 10/14/2019, I went ahead and restarted the ampicillin with pharmacy to dose and again the surgeon to follow. Will continue to check serial CBC's. 8) RENAL INSUFFICIENCY: She did have acute renal failure when she was first admitted here to the hospital with her gangrenous appendix last month. The renal insufficiency on this admission has resolved with IV fluids. 9) HYPONATREMIA: I consulted the clam dredger. It could be possibly due to the Lasix which I had started on 10/14/2019 due to her having swelling in her legs and elevated BNP. We will have them take a look at her to just make sure. 10) DEEP VENOUS THROMBOSIS PROPHYLAXIS: I am using BRITTANIE hose and SCD's since she had positive blood in her stool as well as anemia. The patient and significant other's questions were answered.
[2019-10-23] MEDS: MAG-OX 400 PO SCH ×2 (10:39→22:09)
[2019-10-23] MEDS: Unasyn 3GM / NaCl 100ML 3 GM/100 ML IVPB IV SCH ×3 (12:32→23:25)
--- NOTE | 2019-10-23 14:04 | CONS ---
CONSULT DATE: 10/23/2019 HISTORY: Miss Prince had an appendectomy a little over a month ago. She has not really felt well since. She has had persistent difficulty swallowing and now she presents with hemoglobin down to 6. Heme-positive stool. She does appear pale. She is getting blood. A bowel prep has been started. She has not had recent endoscopic exam. She is prepared for tomorrow. A prep has been ordered. The patient should have a GI bleeding source. We will perform EGD and colonoscopy after prepping the patient today.
[2019-10-23 14:13] LABS: Hematocrit 27.6 % (35-47); Hemoglobin 9.1 gm/dl (12.0-16.0)
[2019-10-23] MEDS ORDERED: FLUID RESTRICTION MISC MC PRN (16:05)
--- NOTE | 2019-10-23 16:13 | CONS ---
CONSULT DATE: 10/23/2019 REASON FOR CONSULT: Hyponatremia. HISTORY: Miss Corinne Prince is a very pleasant 64 year-old lady who was admitted to the hospital with low blood pressure and weakness. The patient had appendix surgery last month. During the course of hospitalization the patient was noted to have low hemoglobin of 5.8 and was given blood, was supposed to get colonoscopy. She was NPO initially. Because of hypertension, her anti-hypertensives were put on hold. The patient was on clonidine, Lasix, magnesium, potassium. The patient's routine tests showed a sodium level of 131. It remained at 131 so renal consultation was called. The patient at the time of my evaluation complained of dysphagia. She states she was drinking more fluids as compared to eating. She has avid fluid intake otherwise as well. Off and on complains of dry mouth. Also she was initiated on Lasix recently. She had some leg swelling. No dysuria or hematuria. No heat or cold intolerance at this time. No gross vomiting. Some loose stools were present. REVIEW OF SYSTEMS: Basically positive for weakness, was noted to have low hemoglobin. Denies any prior knowledge of low sodium. The patient was not on any hydrochlorothiazide. She is not on any nonsteroidal. She is on clonidine as mentioned above. No fevers. No focal weaknesses. No cramps. Weakness was present. No fall or trauma. No liver related issues. No history of alcoholism. All systems were reviewed in detail and pertinent mentioned here and in history of present illness and the rest were negative. MEDICATIONS: Home medications included lisinopril 30 mg daily, Bystolic 10 mg b.i.d., Lasix 20 mg daily, magnesium oxide 400 b.i.d., potassium 15 ml daily, ferrous sulfate, clonidine 0.1 b.i.d. ALLERGIES: NKDA. PAST MEDICAL HISTORY: Includes history of hypertension, hypomagnesemia, hyperkalemia, anemia, obesity, dyslipidemia. PAST SURGICAL HISTORY: Recent history of appendectomy and also cholecystectomy. SOCIAL HISTORY: Smoked for more than 40 years. No alcohol abuse. No drug abuse. FAMILY HISTORY: No history of renal problems in the family. PHYSICAL EXAMINATION: Reveals a lady upright in bed in no respiratory distress, reasonable historian. Vital signs were reviewed. Vital signs stable. She was hypotensive. Blood pressure is holding okay without lisinopril, Bystolic and clonidine. Afebrile. All vital signs were reviewed. HEENT: Normocephalic, atraumatic, pale conjunctivae. NECK: Supple. No JVD. CHEST: Clear to auscultation. No distress. CVS: S1, S2 normal. No rub or gallop. ABDOMEN: Soft, nontender. No organomegaly. EXTREMITIES: Trace edema bilaterally. SKIN: No skin rash. Skin turgor normal. MUSCULOSKELETAL: No acute joint swelling or redness noted. NEUROLOGIC: Nonfocal exam. Alert, awake, oriented x3. LAB DATA AND TESTS: Labs were reviewed. Sodium level was 131. Hemoglobin 5.8. Creatinine was within normal limits. ASSESSMENT: 1) Hyponatremia. Etiology of hyponatremia seems to be most likely low osmolar intake (the patient had dysphagia). This may amount to what is called "tea and toast diet". The patient also was on clonidine which can cause dry mouth and further result in increased fluid intake. On top of that the patient had relative hypertension, possible GI bleed and could have concomitant increase in ADH secretion because of these issues. Underlying syndrome of inappropriate antidiuretic hormone secretion cannot be completely ruled out. Effects of chronic hyponatremia including but not limited to gait problems, cramps, confusion, fever and coma were discussed with the patient. We will investigate by doing baseline hyponatremia workup. We will monitor uric acid. We will check urine sodium, urine osmolality, TSH level and cortisol levels. The patient is relatively NPO and now on clear liquid diet. Will put her on 1,500 cc fluid restriction, start normal saline at 100 cc/hour and titrate the fluid according to her volume status as well as her urine osmolality. The patient has tendency for fluid retention and edema as she is an avid fluid intaker. Also, clonidine may have exacerbated her tendency to drink more fluid. We will okay to continue Lasix as needed along with normal saline. Lasix should not cause hyponatremia. 2) Hypertension. Hold present anti-hypertensive. Discussed with Dr. Chambers to hold clonidine and change her to different anti-hypertensive as an outpatient. 3) Anemia. Continue current management. GI work up in progress. Monitor hemoglobin. Monitor magnesium levels, potassium levels and replace as needed. Optimization of the rest of electrolytes help with the sodium levels. All questions discussed with the family, discussed with [facility], discussed with Dr. Frausto.
[2019-10-23] MEDS ORDERED: CITROMA 296 ML PO SCH (16:30)
[2019-10-23 19:25] LABS: TSH, 3RD Generation 0.606 mIU/L (0.47-4.68); Uric Acid 7.1 mg/dL (2.6-6.0)
[2019-10-23] MEDS: Sodium Chloride 0.9% 1000 ML 1,000 ML IV SCH (19:50)
[2019-10-23] MEDS: PROTONIX 40 MG IV IV SCH (19:50)
[2019-10-23] MEDS ORDERED: MAG-OX 400 PO ONE (22:00)
[2019-10-23] MEDS ORDERED: CITROMA 296 ML PO ONE (22:01)
[2019-10-24] MEDS ORDERED: CITROMA 296 ML PO ONE (04:11)
[2019-10-24] MEDS: Unasyn 3GM / NaCl 100ML 3 GM/100 ML IVPB IV SCH ×2 (04:59→11:40)
[2019-10-24 06:04] LABS: ANION GAP 11.5 MEQ/L (5-15); BLOOD UREA NITROGEN 18 mg/dL (7-17); CHLORIDE 106 mmol/L (98-107); Calcium 8.6 mg/dL (8.4-10.2); Carbon Dioxide 22 mmol/L (22-30); Creatinine 1 0.82 mg/dL (0.52-1.04); Glucose 110 mg/dL (74-106); MAGNESIUM 2.9 mg/dL (1.6-2.3); Potassium 3.2 mmol/L (3.5-5.1); SODIUM 137 mmol/L (137-145)
[2019-10-24] MEDS ORDERED: Klor Con 10 MEQ PO ONE (07:29)
[2019-10-24 07:53] LABS: Hematocrit 26.9 % (35-47); Hemoglobin 8.5 gm/dl (12.0-16.0); Mean Cell Volume 89.7 fl (78-100); Mean Corpuscular Hemoglobin 28.3 pg (26-32); Mean Corpuscular Hgb Concent. 31.6 g/dl (32-36); Mean Platelet Volume 11.3 fl (6-9.5); Platelet Count 445 K/mm3 (150-450); Red Cell Distribution Width 15.8 % (11.5-14.0); White Blood Count 12.6 K/mm3 (4.0-10.5)
[2019-10-24 08:14] LABS: BAND 2 % (0.0-2.0); Lymphocytes 16 % (24-44); Monocyte 2 % (0.0-12.0); Neutrophils 80 % (36.0-66.0); Total Cells Counted 100
[2019-10-24 08:15] LABS: ANISOCYTOSIS 1+; Platelet Estimate INCREASED (NORMAL); Polychromasia 1+
[2019-10-24 08:16] LABS: Absolute Neutrophil Ct (ANC) 10.31 (1.4-6.9)
--- NOTE | 2019-10-24 08:28 | PCM.NOTE ---
Date and Time: 10/24/19825 Subjective Assessment: some difficulty with prep. mild nausea no emesis. BM dark per RN. no blood/ clots. no abd pain. Objective Exam Wound Assessment: Skin/Wound Assessment Wound/Incision Assessment Start: 10/22/19 20: 16 Text: Status: Active Freq: Protocol: Document 10/23/19 02:00 BW (Rec: 10/23/19 02:13 BW [id number]) Wound Photo Photo Taken No Comments: 10/24/19 08:27 nad nonlabored resps nd, soft, nttp c/d/i no periph edema OBJECTIVE DATA Vital Signs: Vital Signs - 24 hr Temp Pulse Resp BP Pulse Ox 10/24/19 08:00 98.0 F 75 21 153/67 97 10/24/19 04:00 98.9 F 68 18 153/59 96 10/24/19 00:00 97.7 F 70 18 149/66 97 10/23/19 22:06 98.9 F 68 18 153/59 96 10/23/19 19:33 98.4 F 68 18 150/67 98 10/23/19 13:02 70 18 157/70 10/23/19 12:00 97.8 F 70 20 130/66 97 Pain Assessment - Last Documented Pain Intensity 0 Pain Scale Used 0-10 Pain Scale,FLACC Intake and Output: Intake & Output 10/22/19 10/23/19 10/24/19 10/25/19 06:59 06:59 06:59 06:59 Intake Total 1045 3302 Output Total 1000 Balance 1045 2302 Weight 91.9 kg 92 kg Lab Results: Lab Results-Last 24 Hours 10/23/19 10/23/19 10/23/19 Range/Units 03:41 08:30 14:10 WBC (4.0-10.5) K/mm3 RBC (4.1-5.4) M/mm3 Hgb 9.1 L D (12.0-16.0) gm/dl Hct 27.6 L (35-47) % MCV (78-100) fl MCH (26-32) pg MCHC (32-36) g/dl RDW (11.5-14.0) % Plt Count (150-450) K/mm3 MPV (6-9.5) fl Absolute Granulocytes (1.4-6.9) Segmented Neutrophils (36.0-66.0) % Band Neutrophils (0.0-2.0) % Lymphocytes (Manual) (24-44) % Monocytes (Manual) (0.0-12.0) % Platelet Estimate (NORMAL) RBC Morphology Polychromasia Anisocytosis Smear Path Review Sodium (137-145) mmol/L Potassium (3.5-5.1) mmol/L Chloride (98-107) mmol/L Carbon Dioxide (22-30) mmol/L Anion Gap (5-15) MEQ/L BUN (7-17) mg/dL Creatinine (0.52-1.04) mg/dL Estimated GFR ML/MIN Glucose (74-106) mg/dL Uric Acid (2.6-6.0) mg/dL Calcium (8.4-10.2) mg/dL Magnesium (1.6-2.3) mg/dL TSH 3rd Generation (0.47-4.68) mIU/L Urine Sodium (30-90) mmol/L Stool Occult Bld Scrn POSITIVE A (NEGATIVE) 10/23/19 10/23/19 10/24/19 Range/Units 16:00 16:50 04:40 WBC (4.0-10.5) K/mm3 RBC (4.1-5.4) M/mm3 Hgb (12.0-16.0) gm/dl Hct (35-47) % MCV (78-100) fl MCH (26-32) pg MCHC (32-36) g/dl RDW (11.5-14.0) % Plt Count (150-450) K/mm3 MPV (6-9.5) fl Absolute Granulocytes (1.4-6.9) Segmented Neutrophils (36.0-66.0) % Band Neutrophils (0.0-2.0) % Lymphocytes (Manual) (24-44) % Monocytes (Manual) (0.0-12.0) % Platelet Estimate (NORMAL) RBC Morphology Polychromasia Anisocytosis Smear Path Review Sodium 137 (137-145) mmol/L Potassium 3.2 L (3.5-5.1) mmol/L Chloride 106 (98-107) mmol/L Carbon Dioxide 22 (22-30) mmol/L Anion Gap 11.5 (5-15) MEQ/L BUN 18 H (7-17) mg/dL Creatinine 0.82 (0.52-1.04) mg/dL Estimated GFR > 60.0 ML/MIN Glucose 110 H (74-106) mg/dL Uric Acid 7.1 H (2.6-6.0) mg/dL Calcium 8.6 (8.4-10.2) mg/dL Magnesium 2.9 H (1.6-2.3) mg/dL TSH 3rd Generation 0.606 (0.47-4.68) mIU/L Urine Sodium 99 H (30-90) mmol/L Stool Occult Bld Scrn (NEGATIVE) 10/24/19 Range/Units 04:40 WBC 12.6 H (4.0-10.5) K/mm3 RBC 3.00 L (4.1-5.4) M/mm3 Hgb 8.5 L (12.0-16.0) gm/dl Hct 26.9 L (35-47) % MCV 89.7 (78-100) fl MCH 28.3 (26-32) pg MCHC 31.6 L (32-36) g/dl RDW 15.8 H (11.5-14.0) % Plt Count 445 (150-450) K/mm3 MPV 11.3 H (6-9.5) fl Absolute Granulocytes 10.31 H (1.4-6.9) Segmented Neutrophils 80 H (36.0-66.0) % Band Neutrophils 2 (0.0-2.0) % Lymphocytes (Manual) 16 L (24-44) % Monocytes (Manual) 2 (0.0-12.0) % Platelet Estimate INCREASED (NORMAL) RBC Morphology ABNORMAL Polychromasia 1+ Anisocytosis 1+ Smear Path Review Sodium (137-145) mmol/L Potassium (3.5-5.1) mmol/L Chloride (98-107) mmol/L Carbon Dioxide (22-30) mmol/L Anion Gap (5-15) MEQ/L BUN (7-17) mg/dL Creatinine (0.52-1.04) mg/dL Estimated GFR ML/MIN Glucose (74-106) mg/dL Uric Acid (2.6-6.0) mg/dL Calcium (8.4-10.2) mg/dL Magnesium (1.6-2.3) mg/dL TSH 3rd Generation (0.47-4.68) mIU/L Urine Sodium (30-90) mmol/L Stool Occult Bld Scrn (NEGATIVE) Radiology Exams: Radiology Procedures Category Date Time Status CHEST 1 VIEW (PORTABLE) Stat Exams 10/22/19 13:48 Completed Assessment/Plan (1) GIB (gastrointestinal bleeding) Current Visit: Yes Status: Acute Code(s): K92.2 - GASTROINTESTINAL HEMORRHAGE, UNSPECIFIED
[2019-10-24] MEDS ORDERED: DIPRIVAN 200 MG/20 ML IV ONE ×3 (08:32→09:43)
[2019-10-24] MEDS ORDERED: Lactated Ringers 1,000 ML IV ONE (08:53)
--- NOTE | 2019-10-24 08:54 | PCM.NOTE ---
Date and Time: 10/24/19 0848 Subjective Assessment: Patient reports tired from the prep. She saw Dr. Gasca, jointer machine operator, yesterday. They are getting ready to take her for scopes today. Surgeon saw her yesterday and again just this AM. Patient had trouble with IV access now and has line in place in right arm at this time placed by PICC nurse. - Review of Systems Constitutional: Weakness Respiratory: No Symptoms Cardiac: No Symptoms Abdominal/Gastrointestinal: Dysphagia, Other Genitourinary Symptoms: No Symptoms Musculoskeletal: No Symptoms Skin: No Symptoms Objective Exam General Appearance: no apparent distress, other (significant other at bedside) Neurologic Exam: alert, cooperative, normal mood/affect Skin Exam: normal color, warm, dry, pale Wound Assessment: Skin/Wound Assessment Wound/Incision Assessment Start: 10/22/19 20: 16 Text: Status: Active Freq: Protocol: Document 10/23/19 02:00 BW (Rec: 10/23/19 02:13 BW [id number]) Wound Photo Photo Taken No Respiratory Exam: normal breath sounds, lungs clear, No crackles/rales, No rhonchi, No wheezing Cardiovascular Exam: regular rate/rhythm, normal heart sounds, No murmur, No friction rub, No gallop Gastrointestinal/Abdomen Exam: soft, normal bowel sounds, No tenderness, No distention, No mass, No guarding Extremity Exam: normal inspection, other (no c/c/e) OBJECTIVE DATA Vital Signs: Vital Signs - 24 hr Temp Pulse Resp BP Pulse Ox 10/24/19 08:00 98.0 F 75 21 153/67 97 10/24/19 04:00 98.9 F 68 18 153/59 96 10/24/19 00:00 97.7 F 70 18 149/66 97 10/23/19 22:06 98.9 F 68 18 153/59 96 10/23/19 19:33 98.4 F 68 18 150/67 98 10/23/19 13:02 70 18 157/70 10/23/19 12:00 97.8 F 70 20 130/66 97 Pain Assessment - Last Documented Pain Intensity 0 Pain Scale Used 0-10 Pain Scale,FLACC Intake and Output: Intake & Output 10/22/19 10/23/19 10/24/19 10/25/19 06:59 06:59 06:59 06:59 Intake Total 1045 3302 Output Total 1000 Balance 1045 1482 Weight 91.9 kg 92 kg Lab Results: Lab Results-Last 24 Hours 10/23/19 10/23/19 10/23/19 Range/Units 03:41 08:30 14:10 WBC (4.0-10.5) K/mm3 RBC (4.1-5.4) M/mm3 Hgb 9.1 L D (12.0-16.0) gm/dl Hct 27.6 L (35-47) % MCV (78-100) fl MCH (26-32) pg MCHC (32-36) g/dl RDW (11.5-14.0) % Plt Count (150-450) K/mm3 MPV (6-9.5) fl Absolute Granulocytes (1.4-6.9) Segmented Neutrophils (36.0-66.0) % Band Neutrophils (0.0-2.0) % Lymphocytes (Manual) (24-44) % Monocytes (Manual) (0.0-12.0) % Platelet Estimate (NORMAL) RBC Morphology Polychromasia Anisocytosis Smear Path Review Sodium (137-145) mmol/L Potassium (3.5-5.1) mmol/L Chloride (98-107) mmol/L Carbon Dioxide (22-30) mmol/L Anion Gap (5-15) MEQ/L BUN (7-17) mg/dL Creatinine (0.52-1.04) mg/dL Estimated GFR ML/MIN Glucose (74-106) mg/dL Uric Acid (2.6-6.0) mg/dL Calcium (8.4-10.2) mg/dL Magnesium (1.6-2.3) mg/dL TSH 3rd Generation (0.47-4.68) mIU/L Urine Sodium (30-90) mmol/L Stool Occult Bld Scrn POSITIVE A (NEGATIVE) 10/23/19 10/23/19 10/24/19 Range/Units 16:00 16:50 04:40 WBC (4.0-10.5) K/mm3 RBC (4.1-5.4) M/mm3 Hgb (12.0-16.0) gm/dl Hct (35-47) % MCV (78-100) fl MCH (26-32) pg MCHC (32-36) g/dl RDW (11.5-14.0) % Plt Count (150-450) K/mm3 MPV (6-9.5) fl Absolute Granulocytes (1.4-6.9) Segmented Neutrophils (36.0-66.0) % Band Neutrophils (0.0-2.0) % Lymphocytes (Manual) (24-44) % Monocytes (Manual) (0.0-12.0) % Platelet Estimate (NORMAL) RBC Morphology Polychromasia Anisocytosis Smear Path Review Sodium 137 (137-145) mmol/L Potassium 3.2 L (3.5-5.1) mmol/L Chloride 106 (98-107) mmol/L Carbon Dioxide 22 (22-30) mmol/L Anion Gap 11.5 (5-15) MEQ/L BUN 18 H (7-17) mg/dL Creatinine 0.82 (0.52-1.04) mg/dL Estimated GFR > 60.0 ML/MIN Glucose 110 H (74-106) mg/dL Uric Acid 7.1 H (2.6-6.0) mg/dL Calcium 8.6 (8.4-10.2) mg/dL Magnesium 2.9 H (1.6-2.3) mg/dL TSH 3rd Generation 0.606 (0.47-4.68) mIU/L Urine Sodium 99 H (30-90) mmol/L Stool Occult Bld Scrn (NEGATIVE) 10/24/19 Range/Units 04:40 WBC 12.6 H (4.0-10.5) K/mm3 RBC 3.00 L (4.1-5.4) M/mm3 Hgb 8.5 L (12.0-16.0) gm/dl Hct 26.9 L (35-47) % MCV 89.7 (78-100) fl MCH 28.3 (26-32) pg MCHC 31.6 L (32-36) g/dl RDW 15.8 H (11.5-14.0) % Plt Count 445 (150-450) K/mm3 MPV 11.3 H (6-9.5) fl Absolute Granulocytes 10.31 H (1.4-6.9) Segmented Neutrophils 80 H (36.0-66.0) % Band Neutrophils 2 (0.0-2.0) % Lymphocytes (Manual) 16 L (24-44) % Monocytes (Manual) 2 (0.0-12.0) % Platelet Estimate INCREASED (NORMAL) RBC Morphology ABNORMAL Polychromasia 1+ Anisocytosis 1+ Smear Path Review Sodium (137-145) mmol/L Potassium (3.5-5.1) mmol/L Chloride (98-107) mmol/L Carbon Dioxide (22-30) mmol/L Anion Gap (5-15) MEQ/L BUN (7-17) mg/dL Creatinine (0.52-1.04) mg/dL Estimated GFR ML/MIN Glucose (74-106) mg/dL Uric Acid (2.6-6.0) mg/dL Calcium (8.4-10.2) mg/dL Magnesium (1.6-2.3) mg/dL TSH 3rd Generation (0.47-4.68) mIU/L Urine Sodium (30-90) mmol/L Stool Occult Bld Scrn (NEGATIVE) Radiology Exams: Radiology Procedures Category Date Time Status CHEST 1 VIEW (PORTABLE) Stat Exams 10/22/19 13:48 Completed Assessment/Plan (1) GIB (gastrointestinal bleeding) Current Visit: Yes Status: Acute Assessment & Plan: Patient to have upper and lower endoscopy with general surgeon today. On PPI by IV. Code(s): K92.2 - GASTROINTESTINAL HEMORRHAGE, UNSPECIFIED (2) Iron deficiency anemia Current Visit: Yes Status: Acute Assessment & Plan: Continue iron supplement. S/p transfusion of 2 units of PRBC's yesterday. Code(s): D50.9 - IRON DEFICIENCY ANEMIA, UNSPECIFIED (3) Dysphagia Current Visit: No Status: Acute Assessment & Plan: Upper endoscopy planned today that will hopefully show cause of dysphagia as she has been able to eat very little solid food since being intubated for appendectomy last month. Code(s): R13.10 - DYSPHAGIA, UNSPECIFIED (4) Esophageal reflux Current Visit: Yes Status: Acute Assessment & Plan: Seen on modified barium swallow done as outpatient. Having upper scope today. Code(s): K21.9 - GASTRO-ESOPHAGEAL REFLUX DISEASE WITHOUT ESOPHAGITIS (5) Weight loss, non-intentional Current Visit: Yes Status: Acute Assessment & Plan: Most likely due to dysphagia and trying to recover from extensive infection in abdomen from gangrenous appendix and multiple abscess in abdomen. Code(s): R63.4 - ABNORMAL WEIGHT LOSS (6) Leukocytosis Current Visit: Yes Status: Acute Assessment & Plan: Continue ampicillin at this time. Awaiting results of scopes Code(s): D72.829 - ELEVATED WHITE BLOOD CELL COUNT, UNSPECIFIED (7) Hyponatremia Current Visit: Yes Status: Acute Assessment & Plan: Resolved at this time. Dr. Gasca, jointer machine operator, saw her yesterday and urine studies still pending. Code(s): E87.1 - HYPO-OSMOLALITY AND HYPONATREMIA
[2019-10-24] MEDS ORDERED: FEVERALL 650 MG RC PRN (09:47)
[2019-10-24] MEDS ORDERED: Zestril 10 MG PO SCH (10:00)
--- NOTE | 2019-10-24 10:12 | OP ---
SURGERY DATE/TIME: 10/24/2019829 PREOPERATIVE DIAGNOSIS: GI bleed. POSTOPERATIVE DIAGNOSES: 1) GI bleed. 2) Esophagitis with esophageal stricture. 3) Duodenitis with duodenal ulcer 2 cm nonbleeding. PROCEDURE: EGD with dilatation of esophageal stricture and biopsies of the antrum and esophagus. SURGEON: Ariel Elizabeth M.D. ANESTHESIA: MAC. SPECIMEN: Antrum and esophagus. ESTIMATED BLOOD LOSS: 20 cc. CONDITION: Patient condition stable. COMPLICATIONS: None. HISTORY: The patient is a 64 year-old female who underwent recent surgery for perforated appendix. Postoperatively she endorses dysphagia as well as most recently dark, tarry stools and was admitted with anemia with hemoglobin in the 5's. Since admission she has been on IV proton pump inhibitor and had been hemodynamically stable with appropriate response to product. Risks, benefits and alternatives were discussed with the patient and her regarding endoscopy including bleeding, perforation, aspiration and the patient and the elected to proceed. FINDINGS: Esophageal stricture from 20 cm to 40 cm which was dilated even just passing the pediatric gastroscope. There was mucosal disruption and the 10 to 12 balloon was inflated and there was no resistance on the 12 balloon throughout. There was duodenitis with inflammation of the duodenal bulb. There was a 2 x 1 cm longitudinal ulcer in the second portion of the duodenum this was nonbleeding. There was no visualized vessel or clot this is not biopsied. Antral biopsy was taken. There is also a small hiatal hernia. DESCRIPTION OF PROCEDURE: The patient was brought to the endoscopy suite. She was positioned and MAC anesthesia was induced. Pediatric gastroscope was introduced. The vocal cords were normal. Upon entering the esophagus there was slight resistance starting at 20 cm. The scope was carefully advanced with direct visualization. There was resistance throughout the esophagus to around 40 cm. The scope was then advanced to the duodenum. In the second portion of duodenum there was the 2 cm long by 1 cm wide ulcer. There was no visible vessel. There was no clot. There was reactive tissue surrounding it. No biopsy was taken. The scope was withdrawn. The rest of the duodenum, D2 and D3 appeared normal mucosa. The duodenal bulb had duodenitis with inflammation and very superficial ulceration scattered. There was no bleeding in this area. Antral biopsy was taken. There was maybe very mild gastritis. The scope was retroflexed. There was a small sliding hiatal hernia. The scope was then withdrawn to the esophagus. There was mucosal disruption from just passing the scope. The 10 to 12 balloon was introduced to the distal esophagus and inflated to 12. There was no resistance. This was withdrawn through the rest of the esophagus and there was no resistance to the 12 balloon and esophageal biopsy was taken just proximal to the mucosal disruption. There was no muscular disruption. The stomach was desufflated and the scope withdrawn. The patient tolerated the procedure well overall. She was then taken to the recovery in stable condition.
[2019-10-24] MEDS: PROTONIX 40 MG IV IV SCH ×2 (11:40→21:07)
[2019-10-24] MEDS: Zestril 10 MG PO SCH (21:07)
[2019-10-25 06:44] LABS: Absolute Neutrophil Ct (ANC) 6.83 (1.4-6.9); BASOPHIL % 0.4 % (0.0-0.4); Basophil (Absolute #) 0.04 (0-0.4); Eosinophil % 1.8 % (0.00-5.0); Hematocrit 23.3 % (35-47); Hemoglobin 7.4 gm/dl (12.0-16.0); Lymphocyte (Absolute #) 2.92 (1.0-4.6); Lymphocytes % 26.5 % (24.0-44.0); Mean Cell Volume 90.7 fl (78-100); Mean Corpuscular Hemoglobin 28.8 pg (26-32); Mean Corpuscular Hgb Concent. 31.8 g/dl (32-36); Monocyte (Absolute #) 1.01 (0.0-1.3); Monocytes % 9.2 % (0.0-12.0); Neutrophil % 62.1 % (36.0-66.0); Platelet Count 345 K/mm3 (150-450); Red Blood Count 2.57 M/mm3 (4.1-5.4); Red Cell Distribution Width 15.7 % (11.5-14.0)
[2019-10-25] MEDS: Sodium Chloride 0.9% 1000 ML 1,000 ML IV SCH ×2 (07:14→14:09)
[2019-10-25] MEDS: Sodium Chloride 0.9% 500 ML 500 ML IV SCH (07:15)
[2019-10-25 08:18] LABS: ALBUMIN 2.8 g/dL (3.5-5.0); ALKALINE PHOSPHATASE 80 U/L (38-126); BLOOD UREA NITROGEN 12 mg/dL (7-17); CHLORIDE 108 mmol/L (98-107); Carbon Dioxide 22 mmol/L (22-30); MAGNESIUM 2.4 mg/dL (1.6-2.3); Potassium 3.5 mmol/L (3.5-5.1); SGOT/AST 37 U/L (14-36); SGPT/ALT 15 U/L (0-35); SODIUM 135 mmol/L (137-145); Total Protein 6.1 g/dL (6.3-8.2)
[2019-10-25 08:33] LABS: Calcium 8.3 mg/dL (8.4-10.2); Creatinine 1 0.78 mg/dL (0.52-1.04); Glucose 96 mg/dL (74-106)
[2019-10-25 08:34] LABS: ANION GAP 8.8 MEQ/L (5-15)
[2019-10-25] MEDS: Zestril 10 MG PO SCH ×2 (09:08→20:56)
[2019-10-25] MEDS: PROTONIX 40 MG IV IV SCH ×2 (09:08→20:56)
--- NOTE | 2019-10-25 12:40 | PCM.NOTE ---
Date and Time: 10/25/19 1235 Subjective Assessment: Patient states noticable improvement in swallowing food(is only on full liquid diet at this pain)since Dr Elizabeth performed dilation yesterday. She is still fatigued but improving. B/P meds (multiple)were on hold due to hypotension but B /P up this morning pmi=415 so Lisinopril 10 mg was started and sys down to 130. Duodenal ulcer was the finding on EGD yesterday.Patient is on IV Protonix. BM small brown loose stool and alot of gas today per patient.Denies abdominal pain or new symptoms. Objective Exam General Appearance: no apparent distress, alert Neurologic Exam: alert, oriented x 3, cooperative Wound Assessment: Skin/Wound Assessment Wound/Incision Assessment Start: 10/22/19 20: 16 Text: Status: Active Freq: Protocol: Document 10/23/19 02:00 BW (Rec: 10/23/19 02:13 BW [id number]) Wound Photo Photo Taken No Respiratory Exam: normal breath sounds, lungs clear Cardiovascular Exam: regular rate/rhythm Gastrointestinal/Abdomen Exam: soft, normal bowel sounds (nontender) Extremity Exam: other (no pitting edema) OBJECTIVE DATA Vital Signs: Vital Signs - 24 hr Temp Pulse Resp BP Pulse Ox 10/25/19 08:00 98.5 F 72 18 177/73 98 10/25/19 04:00 98.1 F 79 18 184/74 96 10/25/19 00:14 98.0 F 80 16 158/65 98 10/24/19 19:27 98.3 F 90 18 155/67 97 10/24/19 12:56 71 162/67 98 Pain Assessment - Last Documented Pain Intensity 0 Pain Scale Used 0-10 Pain Scale Intake and Output: Intake & Output 10/23/19 10/24/19 10/25/19 10/26/19 11:59 11:59 11:59 11:59 Intake Total 1045 3302 440 Output Total 863 160 1305 Balance 795 2552 -760 Weight 91 kg 92 kg 92.1 kg Lab Results: Lab Results-Last 24 Hours 10/25/19 10/25/19 10/25/19 Range/Units 06:20 06:20 06:20 WBC 11.0 H (4.0-10.5) K/mm3 RBC 2.57 L (4.1-5.4) M/mm3 Hgb 7.4 L (12.0-16.0) gm/dl Hct 23.3 L (35-47) % MCV 90.7 (78-100) fl MCH 28.8 (26-32) pg MCHC 31.8 L (32-36) g/dl RDW 15.7 H (11.5-14.0) % Plt Count 345 (150-450) K/mm3 MPV 11.0 H (6-9.5) fl Gran % 62.1 (36.0-66.0) % Eos # (Auto) 0.20 (0-0.5) Absolute Lymphs (auto) 2.92 (1.0-4.6) Absolute Monos (auto) 1.01 (0.0-1.3) Lymphocytes % 26.5 (24.0-44.0) % Monocytes % 9.2 (0.0-12.0) % Eosinophils % 1.8 (0.00-5.0) % Basophils % 0.4 (0.0-0.4) % Absolute Granulocytes 6.83 (1.4-6.9) Basophils # 0.04 (0-0.4) Sodium Cancelled 135 L Potassium Cancelled 3.5 Chloride Cancelled 108 H Carbon Dioxide Cancelled 22 Anion Gap Cancelled 8.8 BUN Cancelled 12 Creatinine Cancelled 0.78 Estimated GFR Cancelled > 60.0 Glucose Cancelled 96 Calcium Cancelled 8.3 L Magnesium 2.4 H (1.6-2.3) mg/dL Total Bilirubin 0.40 (0.2-1.3) mg/dL AST 37 H (14-36) U/L ALT 15 (0-35) U/L Alkaline Phosphatase 80 (38-126) U/L Serum Total Protein 6.1 L (6.3-8.2) g/dL Albumin 2.8 L (3.5-5.0) g/dL Assessment/Plan (1) Duodenal ulcer Current Visit: Yes Status: Acute Assessment & Plan: IV protonix,monitor stools for heme (2) Esophageal stricture Current Visit: Yes Status: Acute Assessment & Plan: Dilitation yesterday Dr Elizabeth ,advance diet Code(s): K22.2 - ESOPHAGEAL OBSTRUCTION (3) Hypotension Current Visit: Yes Status: Resolved Code(s): I95.9 - HYPOTENSION, UNSPECIFIED (4) Acute anemia Current Visit: Yes Status: Acute Assessment & Plan: stable ,serial H/H(CBC) are ordered Code(s): D64.9 - ANEMIA, UNSPECIFIED
[2019-10-26 01:48] LABS: OSMOLALITY URINE 504 mOsm/kg
[2019-10-26 05:11] LABS: Hemoglobin 7.3 gm/dl (12.0-16.0); Mean Cell Volume 89.8 fl (78-100); Mean Corpuscular Hemoglobin 28.5 pg (26-32); Mean Corpuscular Hgb Concent. 31.7 g/dl (32-36); Mean Platelet Volume 10.4 fl (6-9.5); Platelet Count 439 K/mm3 (150-450); Red Blood Count 2.56 M/mm3 (4.1-5.4); Red Cell Distribution Width 15.6 % (11.5-14.0); White Blood Count 9.1 K/mm3 (4.0-10.5)
[2019-10-26 05:13] LABS: ANION GAP 7.4 MEQ/L (5-15); BLOOD UREA NITROGEN 9 mg/dL (7-17); CHLORIDE 107 mmol/L (98-107); Calcium 8.4 mg/dL (8.4-10.2); Carbon Dioxide 25 mmol/L (22-30); Creatinine 1 0.82 mg/dL (0.52-1.04); Glucose 98 mg/dL (74-106); Potassium 3.5 mmol/L (3.5-5.1); SODIUM 136 mmol/L (137-145)
[2019-10-26 08:24] LABS: ATYPICAL LYMPHS 2 %; Eosinophil 2 % (0.00-3.0); Lymphocytes 25 % (24-44); Monocyte 6 % (0.0-12.0); Neutrophils 65 % (36.0-66.0); Total Cells Counted 100
[2019-10-26 08:25] LABS: ANISOCYTOSIS 1+; Hypochromia 2+; Platelet Estimate NORMAL (NORMAL); Polychromasia 1+
[2019-10-26] MEDS: PROTONIX 40 MG IV IV SCH ×2 (09:12→21:58)
[2019-10-26] MEDS: Zestril 10 MG PO SCH (09:12)
[2019-10-26] MEDS ORDERED: Zestril 20 MG PO ONE (13:15)
[2019-10-26] MEDS ORDERED: Bystolic 5 MG PO SCH (13:15)
[2019-10-26] MEDS ORDERED: Bystolic 5 MG PO ONE (18:30)
--- NOTE | 2019-10-26 18:39 | PCM.NOTE ---
Date and Time: 10/26/191833 Subjective Assessment: Patient is feeling stronger and from Surgery standpoint,Dr Elizabeth said she is ok to go home when medically stable. She is eating about 1/2 of her meals on regular diet and had a small formed stool today.Patient has walked a little in the rankin with her and "felt wobbly". Her B/P had been low and B/P meds were held ,restarting Lisinopril yesterday and now Bystolic today and following. Hgb is still low but same for 3 days in the 7s. Objective Exam General Appearance: no apparent distress Neurologic Exam: alert, oriented x 3, cooperative Skin Exam: normal color, warm, dry, other (no as pale today,has been walking in the rankin a little) Wound Assessment: Skin/Wound Assessment Wound/Incision Assessment Start: 10/22/19 20: 16 Text: Status: Active Freq: Protocol: Document 10/23/19 02:00 BW (Rec: 10/23/19 02:13 BW [id number]) Wound Photo Photo Taken No Respiratory Exam: normal breath sounds Cardiovascular Exam: regular rate/rhythm Gastrointestinal/Abdomen Exam: soft (see Surgery note) OBJECTIVE DATA Vital Signs: Vital Signs - 24 hr Temp Pulse Resp BP Pulse Ox 10/26/19 16:00 98.0 F 66 18 172/72 98 10/26/19 12:00 98.2 F 70 18 192/72 98 10/26/19 08:00 98.3 F 78 18 197/75 97 10/26/19 04:00 98.6 F 84 18 188/79 96 10/26/19 00:07 98.1 F 75 16 190/76 98 10/25/19 20:00 98.0 F 69 20 158/65 100 Pain Assessment - Last Documented Pain Intensity 0 Pain Scale Used 0-10 Pain Scale Intake and Output: Intake & Output 10/24/19 10/25/19 10/26/19 10/27/19 11:59 11:59 11:59 11:59 Intake Total 3302 440 500 360 Output Total 750 1200 800 Balance 0095 -462 -300 360 Weight 92 kg 92.1 kg 92.7 kg Lab Results: Lab Results-Last 24 Hours 10/23/19 10/26/19 10/26/19 Range/Units 16:50 05:00 05:00 WBC 9.1 (4.0-10.5) K/mm3 RBC 2.56 L (4.1-5.4) M/mm3 Hgb 7.3 L (12.0-16.0) gm/dl Hct 23.0 L (35-47) % MCV 89.8 (78-100) fl MCH 28.5 (26-32) pg MCHC 31.7 L (32-36) g/dl RDW 15.6 H (11.5-14.0) % Plt Count 439 (150-450) K/mm3 MPV 10.4 H (6-9.5) fl Segmented Neutrophils 65 (36.0-66.0) % Lymphocytes (Manual) 25 (24-44) % Monocytes (Manual) 6 (0.0-12.0) % Eosinophils (Manual) 2 (0.00-3.0) % Atypical Lymphocytes 2 % Hypochromia 2+ Platelet Estimate NORMAL (NORMAL) RBC Morphology ABNORMAL Polychromasia 1+ Anisocytosis 1+ Sodium 136 L (137-145) mmol/L Potassium 3.5 (3.5-5.1) mmol/L Chloride 107 (98-107) mmol/L Carbon Dioxide 25 (22-30) mmol/L Anion Gap 7.4 (5-15) MEQ/L BUN 9 (7-17) mg/dL Creatinine 0.82 (0.52-1.04) mg/dL Estimated GFR > 60.0 ML/MIN Glucose 98 (74-106) mg/dL Calcium 8.4 (8.4-10.2) mg/dL Total Cortisol 15.1 (4.0-25.0) mcg/dL Urine Osmolality 504 mOsm/kg Ref Test Specimen Type Pending Assessment/Plan (1) Duodenal ulcer Current Visit: Yes Status: Acute (2) Esophageal stricture Current Visit: Yes Status: Acute Code(s): K22.2 - ESOPHAGEAL OBSTRUCTION (3) Hypotension Current Visit: Yes Status: Resolved Code(s): I95.9 - HYPOTENSION, UNSPECIFIED (4) Acute anemia Current Visit: Yes Status: Acute Assessment & Plan: Hgb is still low but stable,was transfused earlier this week .EGD scope showed duodenal ulcer,is eating regular diet after dilation of esophagus and doing well. Code(s): D64.9 - ANEMIA, UNSPECIFIED (5) Hypertension Current Visit: Yes Status: Acute Qualifiers: Hypertension type: essential hypertension Qualified Code(s): I10 - Essential (primary) hypertension Assessment & Plan: restart ing B/P meds and monitoring Code(s): I10 - ESSENTIAL (PRIMARY) HYPERTENSION
[2019-10-27] MEDS ORDERED: Sodium Chloride 0.9% 10 ML FLUSH Syringe IV PRN (02:51)
[2019-10-27 04:55] LABS: White Blood Count 8.4 K/mm3 (4.0-10.5)
[2019-10-27 04:56] LABS: Absolute Neutrophil Ct (ANC) 4.92 (1.4-6.9); BASOPHIL % 0.5 % (0.0-0.4); Basophil (Absolute #) 0.04 (0-0.4); Eosinophil % 2.4 % (0.00-5.0); Hematocrit 23.5 % (35-47); Hemoglobin 7.5 gm/dl (12.0-16.0); Lymphocyte (Absolute #) 2.41 (1.0-4.6); Lymphocytes % 28.6 % (24.0-44.0); Mean Cell Volume 90.4 fl (78-100); Mean Corpuscular Hemoglobin 28.8 pg (26-32); Mean Corpuscular Hgb Concent. 31.9 g/dl (32-36); Mean Platelet Volume 10.2 fl (6-9.5); Monocyte (Absolute #) 0.85 (0.0-1.3); Monocytes % 10.1 % (0.0-12.0); Neutrophil % 58.4 % (36.0-66.0); Platelet Count 435 K/mm3 (150-450); Red Cell Distribution Width 15.4 % (11.5-14.0)
[2019-10-27 05:11] LABS: ANION GAP 12.7 MEQ/L (5-15); BLOOD UREA NITROGEN 8 mg/dL (7-17); CHLORIDE 104 mmol/L (98-107); Carbon Dioxide 22 mmol/L (22-30); Creatinine 1 0.66 mg/dL (0.52-1.04); Glucose 98 mg/dL (74-106); Potassium 3.5 mmol/L (3.5-5.1); SODIUM 135 mmol/L (137-145)
[2019-10-27] MEDS ORDERED: NORVASC 5 MG PO ONE (07:19)
[2019-10-27] MEDS: PROTONIX 40 MG IV IV SCH (09:41)
[2019-10-27] MEDS ORDERED: Zestril 10 MG PO SCH (10:00)
[2019-10-27] MEDS ORDERED: FEOSOL 325 MG PO SCH (10:00)
[2019-10-27] MEDS ORDERED: Bystolic 5 MG PO SCH (10:00)
[2019-10-27 14:01] VITALS: O2SAT 98
--- NOTE | 2019-10-27 14:19 | PCM.DCORD ---
- Discharge Discharge Date: 10/27/19 Disposition: Home, Self-Care Condition: Fair Prescriptions: New Ferrous Sulfate 325 mg [Feosol 325 mg] 325 mg PO UD #90 tablet PANTOPRAZOLE 40 mg Tablet [Protonix 40MG Tablet] 40 mg PO BID #60 tab Acetaminophen 325 mg [Tylenol 325 mg] 650 mg PO Q4H PRN PRN #40 tablet PRN Reason: Pain And/Or Fever Continue Nebivolol HCl [Bystolic] 20 mg PO DAILY Lisinopril [Zestril] 30 mg PO DAILY Amlodipine Besylate 10 mg PO DAILY Discontinued Potassium Chloride 20 meq PO DAILY Furosemide [Lasix] 20 mg PO DAILY Ferrous Sulfate 650 mg PO DAILY Clonidine HCl 0.1 mg [Catapres 0.1 MG] 0.1 mg PO BID Magnesium Oxide 800 mg PO BID Additional Instructions: Do not take NSAIDS (ibuprofen, naproxen, advil, or motrin). You may take tylenol for pain. Return to ER or clinic for dizziness, lightheadedness, not keeping fluids down or any other concerns. The iron may make your stools look dark but you should see someone if you have bright red blood in your stools or dark tarry stools. The iron may make you constipated. You may take over the counter stool softeners such as docusate (colace) or miralax for this. Follow up with: GERBER SINGLETON [CONSULTING PHYSICIAN] - 11/19/19 1:00 pm (AT [place]) SERGIO KABA MD [ASSOCIATE STAFF] - 1 Week (FOLLOW UP WITH DR Nick KABA IN 1-2 WEEKS) ARON OTT [Primary Care Provider] - 1 Week Forms: Outpatient Follow-up Labs/Proc
--- NOTE | 2019-10-27 14:47 | DS ---
DISCHARGE DIAGNOSES: 1) DUODENAL ULCER. 2) ESOPHAGEAL STRICTURE. 3) UPPER GASTROINTESTINAL BLEED. 4) IRON DEFICIENCY ANEMIA. 5) NONINTENTIONAL WEIGHT LOSS. 6) LUEKOCYTOSIS. 7) HYPONATREMIA. 8) HYPERTENSION. DISCHARGE PHYSICAL EXAMINATION: VITALS: Temperature current 97.4F, temperature max 98.8F, heart rate 66, respiratory rate 16, blood pressure 143/67. Oxygen saturation 98% on room air. GENERAL: The patient is a pleasant talkative lady sitting up in her chair in no acute distress with her significant other at the bedside. She is pale. CVS: Her heart has a regular rate and rhythm. No murmurs, gallops or rubs are appreciated. CHEST: Clear to auscultation bilaterally. No crackles or wheezes. ABDOMEN: Soft, nontender, nondistended with normal bowel sounds. EXTREMITIES: No clubbing, cyanosis or edema. SKIN: Warm, dry and intact. She has a peripheral PICC line in her right arm. HOSPITAL COURSE: 1) DUODENAL ULCER: She had acute anemia requiring 2 units of packed red blood cells and stool was positive for blood. She had upper endoscopy with Dr. Ariel Elizabeth that revealed the ulcer. She had already been started on Protonix 40 mg IV daily and was increased to 40 mg IV b.i.d., will plan to continue this as an outpatient and she will follow up closely with myself as well as Dr. Ariel Elizabeth. 2) ESOPHAGEAL STRICTURE: This was dilated during the upper endoscopy with Dr. Elizabeth and he plans to follow up with her as an outpatient. 3) IRON DEFICIENCY ANEMIA: I started her on iron. On the day of discharge she was able to take oral medications again and will plan to follow up as an outpatient. 4) NONINTENTIONAL WEIGHT LOSS: Hopefully this will improve now that she is able to swallow better, will continue to monitor her weight as an outpatient. 5) HYPONATREMIA: Stable at this time. She is following up with the film masker. 6) HYPERTENSION: Her antihypertensive will be restarted but we have not restarted her on clonidine, will plan to follow up again as an outpatient. DISCHARGE MEDICATIONS: Please see the discharge order. She was also instructed not to take any NSAID's and instructions for her to return to the emergency room or clinic were also given. FOLLOW UP: Follow up with myself, Dr. Ariel Elizabeth and the film masker. DISPOSITION: The patient was discharged to home in fair condition.
[2019-10-27 17:01] VITALS: BP 183/78; PULSE 65
[2019-10-28] MEDS ORDERED: NORVASC 5 MG PO SCH (10:00)
== END 2019-10-27 17:25 | disposition home or self-care (01) | DRG 384 ==
LOC: ED 13:05 → MED SURG 18:20 → OBSVTOIN 10-23 03:41
PROVIDERS: ADMIT Internal Medicine; ATTEND Internal Medicine
DX: K26.9 Duodenal ulcer, unspecified as acute or chronic, without hemorrhage or perforation (principal); E87.1 Hypo-osmolality and hyponatremia; K22.2 Esophageal obstruction; K92.2 Gastrointestinal hemorrhage, unspecified; R13.10 Dysphagia, unspecified; R42 Dizziness and giddiness; I10 Essential (primary) hypertension; E78.00 Pure hypercholesterolemia, unspecified; Z98.890 Other specified postprocedural states; Z79.899 Other long term (current) drug therapy; D50.9 Iron deficiency anemia, unspecified; R63.4 Abnormal weight loss; D72.829 Elevated white blood cell count, unspecified; I95.9 Hypotension, unspecified; I51.7 Cardiomegaly; K21.9 Gastro-esophageal reflux disease without esophagitis; N28.9 Disorder of kidney and ureter, unspecified; K20.9 Esophagitis, unspecified; K29.80 Duodenitis without bleeding; R53.83 Other fatigue; E83.51 Hypocalcemia; E83.41 Hypermagnesemia; E86.0 Dehydration
CPT/HCPCS: 36000; 36415; 36430; 36569; 43239; 43249; 71045; 80048; 80053; 81001; 82150; 82270; 82533; 82607; 83540; 83550; 83605; 83690; 83735; 83935; 84300; 84443; 84484; 84550; 85014; 85018; 85025; 85610; 85730; 86850; 86900; 86901; 86922; 87040; 87086; 93005; 93268; 96360; 96374; 99284; G0378; P9016; P9612; 88305; C1726; J0290; J0295; J1642; J2704; A9270-GY

== ENCOUNTER 2019-11-04 12:28 | Observation (INO) | payer MEDICARE, OTHER ==
[2019-11-04] MEDS ORDERED: TYLENOL 325 MG PO PRN (12:55)
[2019-11-04] MEDS ORDERED: APRESOLINE 20 MG/ML INJ IV PRN (12:58)
[2019-11-04] MEDS ORDERED: Diflucan/Saline 0.2G/100ML PREMIX*** 200 ML IV ONE (13:00)
[2019-11-04 13:50] LABS: Absolute Neutrophil Ct (ANC) 8.99 (1.4-6.9); BASOPHIL % 0.2 % (0.0-0.4); Basophil (Absolute #) 0.02 (0-0.4); Eosinophil % 0.2 % (0.00-5.0); Eosinophil (Absolute #) 0.03 (0-0.5); Hematocrit 27.9 % (35-47); Hemoglobin 8.9 gm/dl (12.0-16.0); Mean Cell Volume 90.6 fl (78-100); Mean Corpuscular Hemoglobin 28.9 pg (26-32); Mean Corpuscular Hgb Concent. 31.9 g/dl (32-36); Mean Platelet Volume 9.9 fl (6-9.5); Monocyte (Absolute #) 0.99 (0.0-1.3); Monocytes % 7.6 % (0.0-12.0); Platelet Count 405 K/mm3 (150-450); Red Blood Count 3.08 M/mm3 (4.1-5.4)
[2019-11-04 14:01] LABS: ALBUMIN 3.4 g/dL (3.5-5.0); ALKALINE PHOSPHATASE 102 U/L (38-126); ANION GAP 12.4 MEQ/L (5-15); BLOOD UREA NITROGEN 9 mg/dL (7-17); CHLORIDE 102 mmol/L (98-107); Calcium 8.8 mg/dL (8.4-10.2); Carbon Dioxide 27 mmol/L (22-30); Creatinine 1 0.87 mg/dL (0.52-1.04); Glucose 96 mg/dL (74-106); SGOT/AST 19 U/L (14-36); SGPT/ALT 13 U/L (0-35); SODIUM 139 mmol/L (137-145)
[2019-11-04] MEDS: Sodium Chloride 0.9% 1000 ML 1,000 ML IV SCH (14:01)
[2019-11-04 14:06] LABS: Potassium 2.9 mmol/L (3.5-5.1)
[2019-11-04 14:20] LABS: PROTIME 12.7 SECONDS (9.95-12.35)
[2019-11-04 14:21] LABS: INR 1.12 (0.8-3.0)
[2019-11-04] MEDS: PROTONIX 40 MG IV IV SCH ×2 (16:02→20:56)
[2019-11-04] MEDS: POTASSIUM CHLORIDE 20 mEq IN WATER 100ML 20 MEQ/100 ML BAG IV SCH ×2 (16:02→18:13)
[2019-11-04] MEDS ORDERED: Zofran 4 MG/2 ML VIAL IV PRN (17:40)
[2019-11-04 21:06] LABS: Appearance SLIGHTLY CLOUDY (CLEAR); Bacteria RARE /HPF (NEGATIVE); Bilirubin NEGATIVE (NEGATIVE); Blood NEGATIVE Ery/ul (0-5); Epithelial Cells RARE /HPF (FEW); Glucose NEGATIVE (NEGATIVE); Ketones SMALL (NEGATIVE); Leukocyte Esterase TRACE (NEGATIVE); Mucus SLIGHT /HPF (NEGATIVE); Nitrite NEGATIVE (NEGATIVE); Protein,Urine Dip 30 (Negative); RBC 0-2 /HPF (0-2); Specific Gravity 1.017 (1.005-1.025); Urobilinogen NEGATIVE mg/dL (0-1)
[2019-11-05] MEDS: POTASSIUM CHLORIDE 20 mEq IN WATER 100ML 20 MEQ/100 ML BAG IV SCH ×2 (00:41→03:18)
[2019-11-05] MEDS: Sodium Chloride 0.9% 1000 ML 1,000 ML IV SCH ×3 (00:47→23:03)
[2019-11-05 06:28] LABS: BASOPHIL % 0.3 % (0.0-0.4); Basophil (Absolute #) 0.02 (0-0.4); Eosinophil % 1.7 % (0.00-5.0); Eosinophil (Absolute #) 0.12 (0-0.5); Hematocrit 27.1 % (35-47); Hemoglobin 8.5 gm/dl (12.0-16.0); Lymphocyte (Absolute #) 2.95 (1.0-4.6); Lymphocytes % 41.7 % (24.0-44.0); Mean Cell Volume 90.6 fl (78-100); Mean Corpuscular Hemoglobin 28.4 pg (26-32); Mean Corpuscular Hgb Concent. 31.4 g/dl (32-36); Mean Platelet Volume 11.2 fl (6-9.5); Monocyte (Absolute #) 0.79 (0.0-1.3); Monocytes % 11.2 % (0.0-12.0); Neutrophil % 45.1 % (36.0-66.0); Platelet Count 373 K/mm3 (150-450); Red Blood Count 2.99 M/mm3 (4.1-5.4); Red Cell Distribution Width 16.3 % (11.5-14.0); White Blood Count 7.1 K/mm3 (4.0-10.5)
[2019-11-05 06:33] LABS: ALBUMIN 3.2 g/dL (3.5-5.0); ALKALINE PHOSPHATASE 98 U/L (38-126); ANION GAP 9.9 MEQ/L (5-15); BLOOD UREA NITROGEN 6 mg/dL (7-17); CHLORIDE 106 mmol/L (98-107); Calcium 8.6 mg/dL (8.4-10.2); Carbon Dioxide 26 mmol/L (22-30); Creatinine 1 0.67 mg/dL (0.52-1.04); Glucose 93 mg/dL (74-106); Potassium 3.6 mmol/L (3.5-5.1); SGOT/AST 20 U/L (14-36); SGPT/ALT 12 U/L (0-35); SODIUM 138 mmol/L (137-145); Total Protein 6.7 g/dL (6.3-8.2)
[2019-11-05] MEDS ORDERED: Lactated Ringers 1,000 ML IV ONE (09:46)
[2019-11-05] MEDS: PROTONIX 40 MG IV IV SCH ×2 (09:47→21:36)
[2019-11-05] MEDS ORDERED: Lactated Ringers 1,000 ML IV SCH (10:00)
[2019-11-05] MEDS ORDERED: Diflucan/Saline 0.2G/100ML PREMIX*** 100 ML IV SCH (10:00)
[2019-11-05] MEDS ORDERED: DIPRIVAN 200 MG/20 ML IV ONE ×2 (10:14→10:28)
[2019-11-05] MEDS ORDERED: Ketamine HCl 50 MG/ML ONE (10:14)
[2019-11-05] MEDS: Diflucan/Saline 0.2G/100ML PREMIX*** 200 ML IV SCH (11:13)
[2019-11-05] MEDS ORDERED: FEOSOL 325 MG PO SCH (12:15)
[2019-11-05] MEDS: Zestril 10 MG PO SCH (14:45)
[2019-11-05] MEDS: NORVASC 5 MG PO SCH (14:46)
[2019-11-05] MEDS: Bystolic 5 MG PO SCH (14:46)
[2019-11-06 05:17] LABS: Absolute Neutrophil Ct (ANC) 5.68 (1.4-6.9); BASOPHIL % 0.2 % (0.0-0.4); Basophil (Absolute #) 0.02 (0-0.4); Eosinophil % 1.3 % (0.00-5.0); Eosinophil (Absolute #) 0.13 (0-0.5); Hematocrit 26.1 % (35-47); Hemoglobin 8.2 gm/dl (12.0-16.0); Lymphocyte (Absolute #) 2.95 (1.0-4.6); Lymphocytes % 30.4 % (24.0-44.0); Mean Cell Volume 90.9 fl (78-100); Mean Corpuscular Hemoglobin 28.6 pg (26-32); Mean Corpuscular Hgb Concent. 31.4 g/dl (32-36); Mean Platelet Volume 10.7 fl (6-9.5); Monocyte (Absolute #) 0.93 (0.0-1.3); Monocytes % 9.6 % (0.0-12.0); Neutrophil % 58.5 % (36.0-66.0); Platelet Count 366 K/mm3 (150-450); Red Blood Count 2.87 M/mm3 (4.1-5.4); Red Cell Distribution Width 16.3 % (11.5-14.0); White Blood Count 9.7 K/mm3 (4.0-10.5)
[2019-11-06 05:36] LABS: ALKALINE PHOSPHATASE 96 U/L (38-126); BLOOD UREA NITROGEN 4 mg/dL (7-17); CHLORIDE 106 mmol/L (98-107); Calcium 8.4 mg/dL (8.4-10.2); Carbon Dioxide 24 mmol/L (22-30); Creatinine 1 0.61 mg/dL (0.52-1.04); Glucose 97 mg/dL (74-106); Potassium 3.3 mmol/L (3.5-5.1); SGOT/AST 16 U/L (14-36); SGPT/ALT 10 U/L (0-35); SODIUM 134 mmol/L (137-145); Total Protein 6.3 g/dL (6.3-8.2)
--- NOTE | 2019-11-06 07:50 | HP ---
HISTORY OF PRESENT ILLNESS: This is a 64 year-old patient of mine with fairly complicated medical history this past year who presented to my clinic complaining of trouble swallowing again with dysphagia, unable to keep her pills down or any fluids. It started again abruptly at noon the day before. She had just recently been discharged from the hospital on 10/27/2019 after being found to have an esophageal stricture that was dilated by the general surgeon. At that time she also had a duodenal ulcer, upper GI bleed, iron deficiency anemia, nonintentional weight loss, leukocytosis, hypernatremia and hypertension. Before this in September, she had a gangrenous appendix removed and reported having trouble swallowing ever since then. She had an upper endoscopy done before her discharge earlier in October. The pathology report had just come back with Candidiasis but the patient had not yet started on treatment. These results were discussed with the patient in the clinic. She was made a direct admission for the general surgeon to see her again for possible repeat upper endoscopy and also to start IV fluconazole for treatment of the Candidiasis. REVIEW OF SYSTEMS: No fever. No chest pain. No shortness of breath. No constipation. No diarrhea. No lower extremity swelling. No rashes. MEDICATIONS: Please see the home medication reconciliation form which I have reviewed. ALLERGIES: NKDA. PAST MEDICAL HISTORY: As described in history of present illness. PAST SURGICAL HISTORY: Cholecystectomy. Appendectomy 09/26/2019 with acute perforated appendicitis with multiple intra-abdominal abscesses that one required drainage by IR at [facility]. SOCIAL HISTORY: She lives with her significant other, former smoker. FAMILY HISTORY: Noncontributory. PHYSICAL EXAMINATION: VITAL SIGNS: Temperature current 98.6F, heart rate 69, respiratory rate 18, blood pressure 172/72. Oxygen saturation 95% on room air. GENERAL: The patient is a pleasant talkative lady sitting up in no acute distress with her significant other at the bedside. CVS: She has a regular rate and rhythm. No murmurs, gallops or rubs. CHEST: Clear to auscultation bilaterally. No crackles or wheezes. ABDOMEN: Soft, nontender, nondistended with normal bowel sounds. EXTREMITIES: No clubbing, cyanosis or edema. SKIN: Warm, dry and intact. ASSESSMENT AND PLAN: 1) Dysphagia with history of esophageal stricture. She had been taken for an upper endoscopy this morning with general surgeon, Dr. Gigi Elizabeth. 2) Esophageal Candidiasis. She has been started on Diflucan. 3) Hypertension. She has been unable to swallow medications so I have her on IV hydralazine as needed. 4) History of duodenal ulcer. Will continue with Protonix IV b.i.d. 5) Iron deficiency anemia. Once she is able to take medication by mouth again will restart her iron. Her hemoglobin is stable at 8.5. 6) Hypokalemia. She was found to be hypokalemic on admission and given 40 mEq of potassium chloride IV. Repeat potassium is 3.5.
[2019-11-06] MEDS: NORVASC 5 MG PO SCH (09:28)
[2019-11-06] MEDS: Sodium Chloride 0.9% 1000 ML 1,000 ML IV SCH ×2 (09:28→22:05)
[2019-11-06] MEDS: Bystolic 5 MG PO SCH (09:29)
[2019-11-06] MEDS: Zestril 10 MG PO SCH (09:29)
[2019-11-06] MEDS: PROTONIX 40 MG IV IV SCH ×2 (09:29→22:05)
[2019-11-06] MEDS ORDERED: NON-FORMULARY ITEM (Lisinopril [Zestril] 30 MG) PO SCH (10:00)
[2019-11-06] MEDS: Diflucan/Saline 0.2G/100ML PREMIX*** 200 ML IV SCH (10:20)
--- NOTE | 2019-11-06 12:49 | CONS ---
CONSULT DATE: 11/04/2019 REASON FOR CONSULT: Difficulty swallowing. HISTORY: The patient had an EGD and dilatation about a month ago, had a severe stricture and did quite a bit better. This all seemed to start after she had an appendectomy a few months ago. It really has no true relationship. I do not know the exact etiology. It is certainly presumed to be reflux. She had some superimposed yeast on top of this. On physical examination she had no cervical adenopathy. She would like to have this done tomorrow. PLAN: EGD on 11/05/2019.
--- NOTE | 2019-11-06 12:50 | OP ---
SURGERY DATE/TIME: 11/05/2019 1019 PREOPERATIVE DIAGNOSIS: Dysphagia, nearly complete. POSTOPERATIVE DIAGNOSIS: Dysphagia, nearly complete. PROCEDURE: EGD. SURGEON: Gigi Elizabeth M.D. ANESTHESIA: MAC. COMPLICATIONS: None. CONDITION: Stable. DESCRIPTION OF PROCEDURE: The patient is taken to endoscopy. MAC sedation provided. Pharyngoesophageal junction normal to 28 cm. There was stricturing prohibiting the scope advancement at this point. There was severe desquamation of the esophagus below this. It looked like it was a fungal etiology. I assume her underlying mechanism for her scarring is reflux. A size 18 balloon was inflated and endoscope was able to be advanced about another 3 cm. The balloon had been able to be placed through the entire 10 cm of narrowing. There was already suggestion of a very stretched, thinned esophagus. The scope did not enter the stomach today. It was about at the 34 to 35 cm level probably 4 to 5 cm above the stomach. It looked like there was improvement. The scope was withdrawn. The patient was continued on her antifungal treatment. It is unclear how well she is going to respond. She has a very severe stricture. We will probably get a Gastrografin or barium swallow on her at some point.
--- NOTE | 2019-11-06 12:58 | PCM.NOTE ---
Date and Time: 11/06/19 5085 Subjective Assessment: Patient reports Dr. Elizabeth told her that her esophagus was the less than the diameter of a pen. She had this dilated yesterday. The operative note is not available yet. Nursing reported that she could go home today but this is her first meal with regular food. She is eating meatloaf and macaroni and it is getting stuck in her throat and she had to spit it back up. She denies any other concerns. She reports she had trouble swallowing her pills this AM too. - Review of Systems Constitutional: Other (food getting stuck in throat which is painful) Respiratory: No Symptoms Cardiac: No Symptoms Abdominal/Gastrointestinal: No Diarrhea, No Constipation Objective Exam General Appearance: no apparent distress, alert, other (significant other at bedside) Neurologic Exam: alert, cooperative, normal mood/affect Skin Exam: normal color, warm, dry, No rash Respiratory Exam: normal breath sounds, lungs clear, No crackles/rales, No rhonchi, No wheezing Cardiovascular Exam: regular rate/rhythm, normal heart sounds, No murmur, No friction rub, No gallop Gastrointestinal/Abdomen Exam: soft, normal bowel sounds, No tenderness, No distention, No mass Extremity Exam: other (no c/c/e) OBJECTIVE DATA Vital Signs: Vital Signs - 24 hr Temp Pulse Resp BP Pulse Ox 11/06/19 11:41 98.1 F 66 18 146/67 97 11/06/19 07:01 98.1 F 76 20 178/79 96 11/06/19 04:00 98.2 F 76 18 147/67 96 11/06/19 00:00 98.3 F 78 18 183/75 96 11/05/19 20:00 97.9 F 70 18 153/69 97 11/05/19 16:33 97.8 F 77 20 135/71 96 Pain Assessment - Last Documented Pain Intensity 2 Pain Scale Used 0-10 Pain Scale Intake and Output: Intake & Output 11/04/19 11/05/19 11/06/19 11/07/19 06:59 06:59 06:59 06:59 Intake Total 1815 3371 240 Output Total 1000 4900 800 Balance 815 -3919 -560 Weight 88.3 kg Lab Results: Lab Results-Last 24 Hours 11/06/19 11/06/19 Range/Units 04:45 04:45 WBC 9.7 (4.0-10.5) K/mm3 RBC 2.87 L (4.1-5.4) M/mm3 Hgb 8.2 L (12.0-16.0) gm/dl Hct 26.1 L (35-47) % MCV 90.9 (78-100) fl MCH 28.6 (26-32) pg MCHC 31.4 L (32-36) g/dl RDW 16.3 H (11.5-14.0) % Plt Count 366 (150-450) K/mm3 MPV 10.7 H (6-9.5) fl Gran % 58.5 (36.0-66.0) % Eos # (Auto) 0.13 (0-0.5) Absolute Lymphs (auto) 2.95 (1.0-4.6) Absolute Monos (auto) 0.93 (0.0-1.3) Lymphocytes % 30.4 (24.0-44.0) % Monocytes % 9.6 (0.0-12.0) % Eosinophils % 1.3 (0.00-5.0) % Basophils % 0.2 (0.0-0.4) % Absolute Granulocytes 5.68 (1.4-6.9) Basophils # 0.02 (0-0.4) Sodium 134 L (137-145) mmol/L Potassium 3.3 L (3.5-5.1) mmol/L Chloride 106 (98-107) mmol/L Carbon Dioxide 24 (22-30) mmol/L Anion Gap 8.0 (5-15) MEQ/L BUN 4 L (7-17) mg/dL Creatinine 0.61 (0.52-1.04) mg/dL Estimated GFR > 60.0 ML/MIN Glucose 97 (74-106) mg/dL Calcium 8.4 (8.4-10.2) mg/dL Total Bilirubin 0.40 (0.2-1.3) mg/dL AST 16 (14-36) U/L ALT 10 (0-35) U/L Alkaline Phosphatase 96 (38-126) U/L Serum Total Protein 6.3 (6.3-8.2) g/dL Albumin 3.0 L (3.5-5.0) g/dL Multi-Disciplinary Progress Notes: Multi-Disciplinary Progress Notes 11/06/19 09:11 Case Management Note by Prabhu,Soraida spoke with pt, denies needs at home after discharge. Initialized on 11/06/19 09:11 - END OF NOTE Assessment/Plan (1) Esophageal stricture Current Visit: No Status: Acute Assessment & Plan: s/p dilitation; still having trouble swallowing. I have called Dr. Cuauhtemoc Elizabeth's office to discuss but have not heard back from him yet. Code(s): K22.2 - ESOPHAGEAL OBSTRUCTION (2) Esophageal candidiasis Current Visit: Yes Status: Acute Assessment & Plan: Continue IV fluconazole. When she goes home, she will need to be on this for a total of 21 days from the start of her therapy. Code(s): B37.81 - CANDIDAL ESOPHAGITIS (3) Esophageal reflux Current Visit: No Status: Acute Assessment & Plan: Continue protonix IV. Code(s): K21.9 - GASTRO-ESOPHAGEAL REFLUX DISEASE WITHOUT ESOPHAGITIS (4) Dysphagia Current Visit: No Status: Acute Assessment & Plan: Patient having trouble with pills and regular diet today. Code(s): R13.10 - DYSPHAGIA, UNSPECIFIED (5) Hypertension Current Visit: No Status: Acute Assessment & Plan: Home blood pressure medications have been restarted. Code(s): I10 - ESSENTIAL (PRIMARY) HYPERTENSION (6) Duodenal ulcer Current Visit: No Status: Acute Assessment & Plan: On protonix IV and also has script for home. (7) Iron deficiency anemia Current Visit: No Status: Acute Assessment & Plan: Continue iron. Hgb stable at 8.2. Code(s): D50.9 - IRON DEFICIENCY ANEMIA, UNSPECIFIED
--- NOTE | 2019-11-06 14:17 | PROG NOTE ---
Miss Prince had an EGD and dilatation yesterday. She is doing satisfactory. She has not spiked any temperature or fever. She still has some sensation of pills hanging up which I would expect. She was given specific instructions to chew very well, to drink lots of liquids, to also take her Diflucan as an outpatient at home for the next few days. She has severe Candidiasis of the distal esophagus and she has a very severe stricture. She will need multiple dilatations or possibly even corrective surgical treatment which was mentioned to her. I do not think she is particularly anxious for any surgery. We will see her back in the office on 11/18/2019 to see how she is progressing. If she is progressing we will do some additional dilatation. If she is not progressing we will consider additional evaluation and possible gastric pull-up.
[2019-11-06] MEDS: POTASSIUM CHLORIDE 20 mEq IN WATER 100ML 20 MEQ/100 ML BAG IV SCH ×2 (15:50→17:58)
[2019-11-07 05:41] LABS: Absolute Neutrophil Ct (ANC) 3.48 (1.4-6.9); BASOPHIL % 0.3 % (0.0-0.4); Basophil (Absolute #) 0.02 (0-0.4); Eosinophil (Absolute #) 0.15 (0-0.5); Hematocrit 26.2 % (35-47); Hemoglobin 8.3 gm/dl (12.0-16.0); Lymphocyte (Absolute #) 3.08 (1.0-4.6); Lymphocytes % 40.5 % (24.0-44.0); Mean Cell Volume 90.7 fl (78-100); Mean Corpuscular Hemoglobin 28.7 pg (26-32); Mean Corpuscular Hgb Concent. 31.7 g/dl (32-36); Mean Platelet Volume 10.5 fl (6-9.5); Monocyte (Absolute #) 0.87 (0.0-1.3); Monocytes % 11.4 % (0.0-12.0); Neutrophil % 45.8 % (36.0-66.0); Platelet Count 354 K/mm3 (150-450); Red Blood Count 2.89 M/mm3 (4.1-5.4); Red Cell Distribution Width 16.2 % (11.5-14.0); White Blood Count 7.6 K/mm3 (4.0-10.5)
[2019-11-07 05:54] LABS: ANION GAP 9.8 MEQ/L (5-15); BLOOD UREA NITROGEN 4 mg/dL (7-17); CHLORIDE 108 mmol/L (98-107); Calcium 8.6 mg/dL (8.4-10.2); Carbon Dioxide 23 mmol/L (22-30); Creatinine 1 0.63 mg/dL (0.52-1.04); Glucose 99 mg/dL (74-106); Potassium 3.4 mmol/L (3.5-5.1); SODIUM 137 mmol/L (137-145)
[2019-11-07 07:44] VITALS: PULSE 67
[2019-11-07] MEDS: Sodium Chloride 0.9% 1000 ML 1,000 ML IV SCH (07:56)
--- NOTE | 2019-11-07 08:42 | PCM.NOTE ---
Date and Time: 11/07/19837 Subjective Assessment: Patient states she was able to eat soup last night. She is having an upper GI with esophagram today. Dr. Nima Elizabeth saw her early this AM. - Review of Systems Constitutional: No Symptoms Respiratory: No Symptoms Cardiac: No Symptoms Abdominal/Gastrointestinal: No Symptoms Genitourinary Symptoms: No Symptoms Musculoskeletal: No Symptoms Objective Exam General Appearance: no apparent distress, alert, other (significant other at bedside) Neurologic Exam: alert, cooperative, normal mood/affect Skin Exam: normal color, warm, dry, No rash Respiratory Exam: normal breath sounds, lungs clear, No crackles/rales, No rhonchi, No wheezing Cardiovascular Exam: regular rate/rhythm, normal heart sounds, No murmur, No friction rub, No gallop Gastrointestinal/Abdomen Exam: soft, normal bowel sounds, No tenderness, No distention, No mass, No guarding Extremity Exam: other (no c/c/e) OBJECTIVE DATA Vital Signs: Vital Signs - 24 hr Temp Pulse Resp BP Pulse Ox 11/07/19 07:44 98 F 67 18 151/66 97 11/07/19 04:00 98.1 F 68 18 127/58 97 11/07/19 00:00 98.2 F 66 17 135/59 98 11/06/19 20:00 98.2 F 74 18 165/70 96 11/06/19 16:00 98.5 F 74 18 163/72 97 11/06/19 11:41 98.1 F 66 18 146/67 97 Pain Assessment - Last Documented Pain Intensity 2 Pain Scale Used 0-10 Pain Scale Intake and Output: Intake & Output 11/05/19 11/06/19 11/07/19 11/08/19 06:59 06:59 06:59 06:59 Intake Total 1815 3371 3507 Output Total 1000 4900 3500 Balance 815 -1529 7 Weight 88.3 kg Lab Results: Lab Results-Last 24 Hours 11/06/19 11/07/19 11/07/19 Range/Units 23:01 05:27 05:27 WBC 7.6 (4.0-10.5) K/mm3 RBC 2.89 L (4.1-5.4) M/mm3 Hgb 8.3 L (12.0-16.0) gm/dl Hct 26.2 L (35-47) % MCV 90.7 (78-100) fl MCH 28.7 (26-32) pg MCHC 31.7 L (32-36) g/dl RDW 16.2 H (11.5-14.0) % Plt Count 354 (150-450) K/mm3 MPV 10.5 H (6-9.5) fl Gran % 45.8 (36.0-66.0) % Eos # (Auto) 0.15 (0-0.5) Absolute Lymphs (auto) 3.08 (1.0-4.6) Absolute Monos (auto) 0.87 (0.0-1.3) Lymphocytes % 40.5 (24.0-44.0) % Monocytes % 11.4 (0.0-12.0) % Eosinophils % 2.0 (0.00-5.0) % Basophils % 0.3 (0.0-0.4) % Absolute Granulocytes 3.48 (1.4-6.9) Basophils # 0.02 (0-0.4) Sodium 137 (137-145) mmol/L Potassium 3.5 3.4 L (3.5-5.1) mmol/L Chloride 108 H (98-107) mmol/L Carbon Dioxide 23 (22-30) mmol/L Anion Gap 9.8 (5-15) MEQ/L BUN 4 L (7-17) mg/dL Creatinine 0.63 (0.52-1.04) mg/dL Estimated GFR > 60.0 ML/MIN Glucose 99 (74-106) mg/dL Calcium 8.6 (8.4-10.2) mg/dL Radiology Exams: Radiology Procedures Category Date Time Status ESOPHOGRAM [BARIUM SWALLOW ESOPHOGRAM] Routine Exams 11/07/19 Ordered UPPER GI Routine Exams 11/07/19 Ordered Multi-Disciplinary Progress Notes: Multi-Disciplinary Progress Notes 11/06/19 09:11 Case Management Note by Soraida Pelletier spoke with pt, denies needs at home after discharge. Initialized on 11/06/19 09:11 - END OF NOTE Assessment/Plan (1) Esophageal stricture Current Visit: No Status: Acute Assessment & Plan: Radiology study ordered today; general surgeons following. Code(s): K22.2 - ESOPHAGEAL OBSTRUCTION (2) Esophageal candidiasis Current Visit: Yes Status: Acute Assessment & Plan: Continue fluconazole. IV right now as she is having trouble swallowing. Code(s): B37.81 - CANDIDAL ESOPHAGITIS (3) Esophageal reflux Current Visit: No Status: Acute Assessment & Plan: Continue PPI. Code(s): K21.9 - GASTRO-ESOPHAGEAL REFLUX DISEASE WITHOUT ESOPHAGITIS (4) Dysphagia Current Visit: No Status: Acute Code(s): R13.10 - DYSPHAGIA, UNSPECIFIED (5) Hypertension Current Visit: No Status: Acute Assessment & Plan: Continue current medication. Code(s): I10 - ESSENTIAL (PRIMARY) HYPERTENSION (6) Duodenal ulcer Current Visit: No Status: Acute Assessment & Plan: continue PPI (7) Iron deficiency anemia Current Visit: No Status: Acute Assessment & Plan: Continue iron. Code(s): D50.9 - IRON DEFICIENCY ANEMIA, UNSPECIFIED (8) Hypokalemia Current Visit: Yes Status: Acute Assessment & Plan: Potassium replaced yesterday. Checking magnesium level. Will plan to give oral potassium after upper GI. Code(s): E87.6 - HYPOKALEMIA
[2019-11-07] MEDS ORDERED: K-LYTE 25 MEQ PO ONE (10:00)
--- NOTE | 2019-11-07 10:14 | XRAY ---
Indication: Dysphagia. Double contrast upper GI exam was performed. Comparison: None Patient ingested barium without miss swallow or aspiration. Proximal and distal third of the esophagus is normal in course and caliber. Mid third of the esophagus demonstrates dramatic narrowing with beaded margins favoring esophageal spasm. Barium freely emptied into the stomach. No hiatal hernia or gastroesophageal reflux demonstrated. Stomach is normally air distended. Contours of the lesser and greater curvature appears smooth. No filling defect or acute ulcerations. Normal duodenal cap and sweep. Impression: Mid esophageal spasm as detailed. Remaining double contrast upper GI exam is negative. Approximately 1.5 minute fluoroscopy used.
[2019-11-07] MEDS: Bystolic 5 MG PO SCH (10:55)
[2019-11-07] MEDS: NORVASC 5 MG PO SCH (10:56)
[2019-11-07] MEDS: Zestril 10 MG PO SCH (10:56)
[2019-11-07 11:27] VITALS: BP 153/65; O2SAT 96
[2019-11-07] MEDS ORDERED: Diflucan 100 MG PO SCH (13:10)
[2019-11-07] MEDS ORDERED: Protonix 40MG Tablet PO ONE (13:10)
--- NOTE | 2019-11-07 14:34 | PCM.DCORD ---
- Discharge Discharge Date: 11/07/19 Disposition: Home, Self-Care Condition: Fair Prescriptions: New Fluconazole 10 ml PO DAILY #170 ml Continue Nebivolol HCl [Bystolic] 20 mg PO DAILY Lisinopril [Zestril] 30 mg PO DAILY Amlodipine Besylate 10 mg PO DAILY PANTOPRAZOLE 40 mg Tablet [Protonix 40MG Tablet] 40 mg PO BID #60 tab Acetaminophen 325 mg [Tylenol 325 mg] 650 mg PO Q4H PRN PRN #40 tablet PRN Reason: Pain And/Or Fever Ferrous Sulfate 325 mg [Feosol 325 mg] 325 mg PO UD #90 tablet Instructions: High Potassium Diet Follow up with: SERGIO KABA MD [ASSOCIATE STAFF] - 11/11/19 2:15 pm ARON OTT [Primary Care Provider] - 11/14/19 10:15 am
[2019-11-07] MEDS ORDERED: Protonix 40MG Tablet PO SCH (22:00)
== END 2019-11-07 13:40 | disposition home or self-care (01) ==
LOC: ICU 12:29 → MED SURG 18:49
PROVIDERS: ADMIT Internal Medicine; ATTEND Internal Medicine
DX: K22.2 Esophageal obstruction (principal); R13.10 Dysphagia, unspecified; B37.81 Candidal esophagitis; K26.7 Chronic duodenal ulcer without hemorrhage or perforation; D50.9 Iron deficiency anemia, unspecified; I10 Essential (primary) hypertension; E87.6 Hypokalemia; Z79.899 Other long term (current) drug therapy
CPT/HCPCS: 36415; 74220; 74246; 80048; 80053; 81001; 83735; 84132; 85025; 85610; 93005; C1726; J0360; J1450; J2704; J3480; A9270-GY

== ENCOUNTER 2019-12-04 10:27 | Inpatient (IN) | payer MEDICARE, OTHER ==
[2019-12-04] MEDS ORDERED: Lactated Ringers 1,000 ML IV ONE (10:53)
[2019-12-04] MEDS ORDERED: Lactated Ringers 1,000 ML IV SCH (11:00)
[2019-12-04] MEDS ORDERED: Ketamine HCl 50 MG/ML ONE (12:40)
[2019-12-04] MEDS ORDERED: DIPRIVAN 200 MG/20 ML IV ONE ×2 (12:40)
[2019-12-04] MEDS ORDERED: GlucaGen 1 MG ONE (12:43)
[2019-12-04] MEDS: D5W/0.45NS W/ 20mEq KCl 1000 ML 1,000 ML IV SCH (15:06)
[2019-12-04] MEDS: Ferrous Sulfate (IRON) 220 MG/5 ML PO SCH ×2 (15:06→22:33)
[2019-12-04] MEDS: PROTONIX 40 MG IV IV SCH ×2 (15:06→22:32)
[2019-12-04] MEDS: Unasyn 3GM / NaCl 100ML 3 GM/100 ML IVPB IV SCH ×2 (15:06→18:42)
[2019-12-04] MEDS: Klor Con 10 MEQ PO SCH (15:07)
[2019-12-04] MEDS: Bystolic 5 MG PO SCH (22:29)
[2019-12-05] MEDS: Unasyn 3GM / NaCl 100ML 3 GM/100 ML IVPB IV SCH ×5 (00:03→23:44)
[2019-12-05] MEDS: D5W/0.45NS W/ 20mEq KCl 1000 ML 1,000 ML IV SCH ×3 (05:43→22:26)
[2019-12-05] MEDS: Ferrous Sulfate (IRON) 220 MG/5 ML PO SCH ×3 (07:57→21:28)
[2019-12-05] MEDS: Bystolic 5 MG PO SCH ×2 (07:57→21:27)
[2019-12-05] MEDS: Klor Con 10 MEQ PO SCH (07:58)
[2019-12-05] MEDS: PROTONIX 40 MG IV IV SCH ×2 (07:58→21:28)
[2019-12-05] MEDS ORDERED: Quelicin Fliptop 200 MG/10 ML ONE (09:39)
[2019-12-05] MEDS ORDERED: DIPRIVAN 200 MG/20 ML IV ONE (09:39)
[2019-12-05] MEDS ORDERED: Zemuron 100 MG/10 ML ONE (09:39)
[2019-12-05] MEDS ORDERED: SUBLIMAZE 100 MCG/2 ML ONE ×2 (09:39→11:31)
[2019-12-05] MEDS ORDERED: NON-FORMULARY ITEM (Potassium Chloride [Potassium Chloride] 10 MEQ) PO SCH (10:00)
[2019-12-05] MEDS ORDERED: TYLENOL 325 MG PO PRN (10:02)
[2019-12-05] MEDS ORDERED: Lactated Ringers 2,000 ML IV ONE (10:03)
[2019-12-05] MEDS ORDERED: MORPHINE SULFATE 2 MG INJ IV PRN (10:10)
[2019-12-05] MEDS ORDERED: MEFOXIN 2 GM PREMIX** 2 GM/50 ML ML IV SCH (11:00)
[2019-12-05] MEDS ORDERED: Decadron 4 MG INJ ONE (11:08)
[2019-12-05] MEDS ORDERED: Zofran 4 MG/2 ML VIAL ONE (11:08)
[2019-12-05] MEDS ORDERED: TORAdol 30 mg Injection ONE (11:08)
[2019-12-05] MEDS ORDERED: BRIDION 200MG/2ML IV ONE (11:08)
[2019-12-05] MEDS ORDERED: Morphine PCA 1 MG/ML 30 ML IV PRN (11:27)
[2019-12-05] MEDS ORDERED: DILAUDID 2 MG INJECTION ONE (11:31)
[2019-12-05] MEDS ORDERED: Compazine 10 MG/2 ML ONE (11:40)
[2019-12-05] MEDS ORDERED: MEFOXIN 1 Gm/ D5W 50 Ml** 1 G/50 ML ML IV SCH (12:00)
[2019-12-05] MEDS: Nystatin SUSPENSION 60 ML PO SCH ×3 (12:39→21:28)
[2019-12-06 05:13] LABS: Hematocrit 34.2 % (35-47); Hemoglobin 10.5 gm/dl (12.0-16.0); Mean Cell Volume 90.2 fl (78-100); Mean Corpuscular Hemoglobin 27.7 pg (26-32); Mean Corpuscular Hgb Concent. 30.7 g/dl (32-36); Mean Platelet Volume 11.7 fl (7.5-11.0); Platelet Count 60 K/mm3 (150-450); Red Blood Count 3.79 M/mm3 (4.1-5.4); Red Cell Distribution Width 17.1 % (11.5-14.0); White Blood Count 12.5 K/mm3 (4.0-10.5)
[2019-12-06 05:27] LABS: ANION GAP 10.1 MEQ/L (5-15); BLOOD UREA NITROGEN 8 mg/dL (7-17); CHLORIDE 104 mmol/L (98-107); Calcium 8.1 mg/dL (8.4-10.2); Carbon Dioxide 24 mmol/L (22-30); Creatinine 1 0.73 mg/dL (0.52-1.04); Glucose 149 mg/dL (74-106); Potassium 3.8 mmol/L (3.5-5.1); SODIUM 134 mmol/L (137-145)
[2019-12-06 05:54] LABS: Slide Review YES
[2019-12-06] MEDS: Unasyn 3GM / NaCl 100ML 3 GM/100 ML IVPB IV SCH ×4 (06:25→23:24)
[2019-12-06] MEDS: Bystolic 5 MG PO SCH ×2 (09:50→21:39)
[2019-12-06] MEDS: ENOXAPARIN SODIUM SQ SCH (09:50)
[2019-12-06] MEDS: Klor Con 10 MEQ PO SCH (09:52)
[2019-12-06] MEDS: Nystatin SUSPENSION 60 ML PO SCH ×4 (09:52→21:39)
[2019-12-06] MEDS: Ferrous Sulfate (IRON) 220 MG/5 ML PO SCH ×3 (09:52→21:39)
[2019-12-06] MEDS: PROTONIX 40 MG IV IV SCH ×2 (10:26→21:39)
[2019-12-06] MEDS: D5W/0.45NS W/ 20mEq KCl 1000 ML 1,000 ML IV SCH ×2 (10:26→22:39)
[2019-12-06] MEDS: NORCO 5/325 MG PO PRN ×2 (12:43→22:31)
[2019-12-07] MEDS: Unasyn 3GM / NaCl 100ML 3 GM/100 ML IVPB IV SCH ×3 (05:33→16:54)
[2019-12-07 07:37] LABS: ANION GAP 9.9 MEQ/L (5-15); BLOOD UREA NITROGEN 6 mg/dL (7-17); CHLORIDE 104 mmol/L (98-107); Calcium 8.1 mg/dL (8.4-10.2); Carbon Dioxide 29 mmol/L (22-30); Creatinine 1 0.69 mg/dL (0.52-1.04); Glucose 102 mg/dL (74-106); Potassium 3.4 mmol/L (3.5-5.1); SODIUM 139 mmol/L (137-145)
[2019-12-07] MEDS: Bystolic 5 MG PO SCH ×2 (09:49→21:49)
[2019-12-07] MEDS: Ferrous Sulfate (IRON) 220 MG/5 ML PO SCH ×4 (09:50→21:50)
[2019-12-07] MEDS: Nystatin SUSPENSION 60 ML PO SCH ×4 (09:50→21:50)
[2019-12-07] MEDS: Klor Con 10 MEQ PO SCH (09:50)
[2019-12-07] MEDS: ENOXAPARIN SODIUM SQ SCH (09:50)
[2019-12-07] MEDS: PROTONIX 40 MG IV IV SCH ×2 (09:51→21:50)
[2019-12-07] MEDS: D5W/0.45NS W/ 20mEq KCl 1000 ML 1,000 ML IV SCH ×2 (10:22→21:48)
[2019-12-07] MEDS: NORCO 5/325 MG PO PRN (19:52)
[2019-12-08] MEDS: Unasyn 3GM / NaCl 100ML 3 GM/100 ML IVPB IV SCH ×5 (00:42→23:48)
[2019-12-08 05:05] LABS: Hematocrit 29.5 % (35-47); Hemoglobin 9.4 gm/dl (12.0-16.0); Mean Cell Volume 88.3 fl (78-100); Mean Corpuscular Hemoglobin 28.1 pg (26-32); Mean Corpuscular Hgb Concent. 31.9 g/dl (32-36); Mean Platelet Volume 10.8 fl (7.5-11.0); Platelet Count 379 K/mm3 (150-450); Red Blood Count 3.34 M/mm3 (4.1-5.4); White Blood Count 8.5 K/mm3 (4.0-10.5)
[2019-12-08 05:19] LABS: ANION GAP 8.6 MEQ/L (5-15); BLOOD UREA NITROGEN 4 mg/dL (7-17); CHLORIDE 103 mmol/L (98-107); Calcium 8.1 mg/dL (8.4-10.2); Carbon Dioxide 29 mmol/L (22-30); Glucose 98 mg/dL (74-106); Potassium 3.3 mmol/L (3.5-5.1); SODIUM 138 mmol/L (137-145)
[2019-12-08] MEDS: ENOXAPARIN SODIUM SQ SCH (08:08)
[2019-12-08] MEDS: PROTONIX 40 MG IV IV SCH ×2 (08:08→21:33)
[2019-12-08] MEDS: Klor Con 10 MEQ PO SCH (08:08)
[2019-12-08] MEDS: Bystolic 5 MG PO SCH ×2 (08:08→21:33)
[2019-12-08] MEDS: Nystatin SUSPENSION 60 ML PO SCH ×4 (08:08→21:36)
[2019-12-08] MEDS: Ferrous Sulfate (IRON) 220 MG/5 ML PO SCH ×3 (08:08→21:34)
[2019-12-08] MEDS: NORCO 5/325 MG PO PRN (09:42)
--- NOTE | 2019-12-08 09:47 | OP ---
SURGERY DATE/TIME: 12/04/2019 1210 PREOPERATIVE DIAGNOSIS: Esophageal stricture. POSTOPERATIVE DIAGNOSES: 1) Esophageal stricture probably benign. 2) Total occlusion of junction between the first and second portion of the duodenum with a benign appearing stricture. PROCEDURE: EGD with dilatation of esophagus. SURGEON: Gigi Elizabeth M.D. STEEL SASH ERECTOR: Ariel Elizabeth M.D. ANESTHESIA: MAC. COMPLICATIONS: None. CONDITION: Stable. INDICATION: A patient has known esophageal obstruction. She has been dilated twice. She has quite persistent stricture. DESCRIPTION OF PROCEDURE: She was taken endoscopy. Scope introduced. The stricture was there. There was really nothing of any mass, exophytic area or ulceration to biopsy. It was ballooned twice. At this time the gastroscope was able to be placed through. The stomach itself was satisfactory. The pylorus was wide open. There was about three-fourths of a bulb. At the end of this bulb tapered down and the balloon tip could be just barely inserted here but it could not be advanced consistent with complete obstruction. Scope was withdrawn, about an inch hiatal hernia. Scope run back into the stricture area, scope withdrawn. The patient was scheduled for surgery.
--- NOTE | 2019-12-08 09:59 | OP ---
SURGERY DATE/TIME: 12/05/2019 1010 PREOPERATIVE DIAGNOSIS: Esophageal stricture. POSTOPERATIVE DIAGNOSES: 1) Esophageal stricture probably benign. 2) Total occlusion of junction between the first and second portion of the duodenum with a benign appearing stricture. PROCEDURE: Gastrojejunostomy with EGD. SURGEON: Gigi Elizabeth M.D. ANESTHESIA: General. COMPLICATIONS: None. CONDITION: Stable. INDICATION: A patient has known esophageal obstruction. She has been dilated twice. She has quite persistent stricture. DESCRIPTION OF PROCEDURE: Routine prep and drape. Time out performed. Bowel laparotomy. She had a previous appendicitis with rupture about five months ago. She did have adhesions lower abdomen. Her small bowel could not be visualized well enough to find the ligament of Treitz and pull up the loop. The incision was extended about 2 inches. At this time a complete enterolysis was performed from the ligament of Treitz down to the ileocecal valve. The presumed anastomotic area was marked with a suture bringing up just enough jejunum to get over the colon and make antecolic gastrojejunostomy in an isoperistaltic fashion. The right upper quadrant had been extensively palpated. The liver was fatty and had a slightly odd color to it. The colon was stuck up in the gallbladder fossa. The pylorus was palpable and visible. This whole area was palpated and there was no suggestion of any duodenal mass or any pancreatic mass going along with diagnosis of benign duodenal stricture from benign ulcer disease the posterior layer. #3-0 PDS was placed. Gastrotomy and enterotomy made. The inner layer was placed posteriorly and then a one layer anterior closure. This looked excellent. It laid nicely. It was antecolic. The small bowel is placed back in organized fashion. Omentum brought down. The anterior abdominal wall closed with loop 0 PDS subcutaneous suture. Skin closed with aubrie and hali. The gastroscope was again placed. There were just a few friable fragments in the esophagus that were picked up for biopsy. Again, there was no absolute mass or suggestion of malignancy to biopsy but it was still a fairly firm, tight stricture. The gastric jejunostomy both limbs were visible and lay nicely. Scope withdrawn. Patient tolerated the procedure satisfactorily.
[2019-12-08] MEDS: D5W/0.45NS W/ 20mEq KCl 1000 ML 1,000 ML IV SCH ×3 (10:41→21:33)
[2019-12-09 06:05] LABS: ANION GAP 10.8 MEQ/L (5-15); BLOOD UREA NITROGEN 4 mg/dL (7-17); CHLORIDE 102 mmol/L (98-107); Calcium 8.5 mg/dL (8.4-10.2); Carbon Dioxide 26 mmol/L (22-30); Creatinine 1 0.67 mg/dL (0.52-1.04); Glucose 96 mg/dL (74-106); Potassium 3.5 mmol/L (3.5-5.1); SODIUM 136 mmol/L (137-145)
[2019-12-09] MEDS: Unasyn 3GM / NaCl 100ML 3 GM/100 ML IVPB IV SCH ×2 (06:06→12:04)
[2019-12-09] MEDS: Nystatin SUSPENSION 60 ML PO SCH ×4 (10:09→22:31)
[2019-12-09] MEDS: ENOXAPARIN SODIUM SQ SCH (10:11)
[2019-12-09] MEDS: PROTONIX 40 MG IV IV SCH ×2 (10:13→21:29)
[2019-12-09] MEDS: Klor Con 10 MEQ PO SCH (10:19)
[2019-12-09] MEDS: Bystolic 5 MG PO SCH ×2 (10:19→22:28)
[2019-12-09] MEDS: Ferrous Sulfate (IRON) 220 MG/5 ML PO SCH ×3 (11:22→20:17)
[2019-12-09] MEDS: Zofran 4 MG/2 ML VIAL IV PRN ×2 (15:35→21:29)
[2019-12-09] MEDS ORDERED: DULCOLAX 5 MG PO SCH (17:30)
[2019-12-09] MEDS ORDERED: DULCOLAX 5 MG PO PRN (19:00)
[2019-12-09] MEDS: D5W/0.45NS W/ 20mEq KCl 1000 ML 1,000 ML IV SCH (20:14)
[2019-12-10 04:50] LABS: INR 1.1 (0.8-3.0); PROTIME 12.4 SECONDS (9.95-12.35)
[2019-12-10 04:53] LABS: PTT 30.3 SECONDS (25.3-37.0)
[2019-12-10] MEDS: D5W/0.45NS W/ 20mEq KCl 1000 ML 1,000 ML IV SCH ×3 (07:25→21:02)
[2019-12-10] MEDS: Zofran 4 MG/2 ML VIAL IV PRN ×2 (07:27→14:17)
[2019-12-10] MEDS: ENOXAPARIN SODIUM SQ SCH (09:15)
[2019-12-10] MEDS: Ferrous Sulfate (IRON) 220 MG/5 ML PO SCH ×4 (09:16→21:21)
[2019-12-10] MEDS: Bystolic 5 MG PO SCH ×2 (09:16→21:01)
[2019-12-10] MEDS: Nystatin SUSPENSION 60 ML PO SCH ×4 (09:17→21:02)
[2019-12-10] MEDS: Klor Con 10 MEQ PO SCH (09:18)
[2019-12-10] MEDS: PROTONIX 40 MG IV IV SCH ×2 (09:19→21:01)
[2019-12-10] MEDS ORDERED: PHARMACY DOSING REQUEST MC SCH (10:00)
[2019-12-11] MEDS: Zofran 4 MG/2 ML VIAL IV PRN (08:04)
[2019-12-11] MEDS: ENOXAPARIN SODIUM SQ SCH (08:05)
[2019-12-11] MEDS: PROTONIX 40 MG IV IV SCH ×2 (08:05→22:01)
[2019-12-11] MEDS: Bystolic 5 MG PO SCH ×2 (08:05→22:01)
[2019-12-11] MEDS: Nystatin SUSPENSION 60 ML PO SCH ×5 (08:05→22:02)
[2019-12-11] MEDS: Klor Con 10 MEQ PO SCH (08:05)
[2019-12-11] MEDS: Ferrous Sulfate (IRON) 220 MG/5 ML PO SCH ×4 (08:05→22:01)
--- NOTE | 2019-12-11 11:09 | XRAY ---
Indication: Follow-up gastrojejunostomy December 05, 2019. Known esophageal spasm/stricture with dilatation X 3. Preliminary fuel handler abdomen demonstrates mild air distended small and large bowel loops without obstruction or large free air. Solid organs obscured. Midline cutaneous aubrie attest to recent surgery. Single contrast upper GI exam was performed with diluted Gastrografin. Patient ingested contrast without miss swallow or aspiration. Proximal half of the esophagus is normal in course and caliber without obstruction or filling defect. Mid to distal half of the esophagus demonstrates smooth intraluminal narrowing consistent with known esophageal stricture. Esophageal stricture does appear overall improved with respect to esophagram November 07, 2019. Contrast freely empties into the stomach. Stomach normally distended with contrast without obvious acute ulcerations or gross filling defect. Normal gastric emptying. Duodenal cap and proximal small bowel appears normal. No extravasation or leak of contrast. Impression: 1. Distal esophageal stricture, improved with respect to esophagram November 07, 2019. No focal stricture or obstruction. 2. Remaining single contrast upper GI exam is negative. 3. Approximately 1.1 minute fluoroscopy used.
--- NOTE | 2019-12-11 11:15 | XRAY ---
Indication: Follow-up gastrojejunostomy December 05, 2019. Known esophageal spasm/stricture with dilatation X 3. Preliminary ice cream maker abdomen demonstrates mild air distended small and large bowel loops without obstruction or large free air. Solid organs obscured. Midline cutaneous aubrie attest to recent surgery. Single contrast upper GI exam using diluted Gastrografin reported separately. Multiple delayed overhead radiographs demonstrates normal antegrade movement of the contrast through the small bowel loops to the level of the cecum within 60 minutes. There is no abnormal extravasation/leak of contrast. Multiple digital spot compression views obtained. No focal stricture, obstruction, filling defect, or inflammatory changes. Ileocecal junction is identified and appears unremarkable. Impression: 1. Negative small bowel follow-through exam. 2. Approximately 0.5 minute fluoroscopy used.
[2019-12-11] MEDS: D5W/0.45NS W/ 20mEq KCl 1000 ML 1,000 ML IV SCH (16:20)
[2019-12-12] MEDS: D5W/0.45NS W/ 20mEq KCl 1000 ML 1,000 ML IV SCH (07:36)
[2019-12-12] MEDS: Bystolic 5 MG PO SCH ×2 (10:25→21:04)
[2019-12-12] MEDS: ENOXAPARIN SODIUM SQ SCH (10:25)
[2019-12-12] MEDS: Ferrous Sulfate (IRON) 220 MG/5 ML PO SCH ×3 (10:26→21:04)
[2019-12-12] MEDS: Nystatin SUSPENSION 60 ML PO SCH ×4 (10:26→21:04)
[2019-12-12] MEDS: Klor Con 10 MEQ PO SCH (10:26)
[2019-12-12] MEDS: PROTONIX 40 MG IV IV SCH ×2 (10:27→21:04)
--- NOTE | 2019-12-12 12:45 | PCM.NOTE ---
Date and Time: 12/12/19 1241 Subjective Assessment: no acute issues overnight. pain controlled. svetlana FLD. + flatus + BM. ambulating in rankin. Objective Exam Comments: 12/12/19 12:42 nad nonlabored resps nd, soft, nttp clean hali and aubrie OBJECTIVE DATA Vital Signs: Vital Signs - 24 hr Temp Pulse Resp BP Pulse Ox 12/12/19 12:00 97.9 F 59 L 193/75 93 L 12/12/19 10:06 96 12/12/19 07:00 98 F 65 18 151/81 97 12/12/19 04:00 98.1 F 62 16 141/63 97 12/12/19 00:34 98.0 F 76 16 180/84 98 12/11/19 20:30 98 12/11/19 20:10 98.0 F 64 18 162/70 99 12/11/19 16:00 97.9 F 61 16 181/77 97 Pain Assessment - Last Documented Pain Intensity 0 Pain Scale Used 0-10 Pain Scale Intake and Output: Intake & Output 12/10/19 12/11/19 12/12/19 12/13/19 06:59 06:59 06:59 06:59 Intake Total 1468 2632 2306 Output Total 1150 1600 1700 Balance 318 1032 606 Radiology Exams: Radiology Procedures Category Date Time Status SMALL BOWEL FOLLOWING UGI Routine Exams 12/11/19 10:46 Completed UGI w/o AIR Routine Exams 12/11/19 10:46 Completed Multi-Disciplinary Progress Notes: Multi-Disciplinary Progress Notes 12/12/19 12:40 Nutrition Note by Colette Yusuf F/u Note: Diet resumed to soft with 25-75% po intake. No recent weight available; labs 2= Na 136, BUN 4, hgb 9.4, hct 29.5. Recommend soft cardiac diet. goal #1) po intake >=75%. Will monitor and f/u prn. TCHARO Blevins Initialized on 12/12/19 12:40 - END OF NOTE 12/12/19 12:16 Case Management Note by Keyanna Gary S/W PATIENT AND SIG OTHER- THEY CONTINUE TO DENY ANY NEEDS AT HOME INCLUDING HOME HEALTH CARE. THEY FEEL CONFIDENT IN BEING ABLE TO CARE FOR PATIENT AT HOME WITHOUT DIFFICULTY. THEY WILL BE ABLE TO GET THEIR PRESCRIPTIONS FILLED AND MAKE ANY FOLLOW UP APPOINTMENTS. THE SIG OTHER WILL BE DOING ANY DRESSING CHANGES NEEDED. HE WILL NEED SPECIFIC DRESSING CHANGE INSTRUCTIONS AND WILL NEED TO BE TAUGHT HOW TO DO THE DRESSING CHANGES. THEY WILL NEED TO PURCHASE DRESSING SUPPLIES WELL THOSE ARE NOT COVERED BY INSURANCE. Initialized on 12/12/19 12:16 - END OF NOTE Assessment/Plan (1) Duodenal ulcer Current Visit: No Status: Acute Assessment & Plan: s/p gastrojejunostomy for presumed benign duodenal stricture also esophageal stricture with dilation. doing well. ugi ok -full liquid diet -saline lock -transition to po pain meds. cont oob, is, dvt ppx. -posisbly dc tomorrow if tolerating po, cont bowel function.
[2019-12-13] MEDS: Klor Con 10 MEQ PO SCH (10:25)
[2019-12-13] MEDS: ENOXAPARIN SODIUM SQ SCH (10:25)
[2019-12-13] MEDS: Bystolic 5 MG PO SCH (10:25)
[2019-12-13] MEDS: Ferrous Sulfate (IRON) 220 MG/5 ML PO SCH (10:25)
[2019-12-13] MEDS: PROTONIX 40 MG IV IV SCH (10:27)
[2019-12-13] MEDS: Nystatin SUSPENSION 60 ML PO SCH (10:27)
[2019-12-13] MEDS ORDERED: Protonix 40MG Tablet PO SCH (12:00)
[2019-12-13 12:18] VITALS: BP 152/76; PULSE 72; O2SAT 95
[2019-12-14] MEDS ORDERED: Protonix 40MG Tablet PO SCH (10:00)
== END 2019-12-13 13:47 | disposition home or self-care (01) | DRG 337 ==
LOC: SDC 10:27 → MED SURG 13:10 → OBSVTOIN 12-05 09:53
PROVIDERS: ADMIT Surgery; ATTEND Surgery
PROC: 0DHA3UZ Insertion of Feeding Device into Jejunum, Percutaneous Approach (ICD-10-PCS; principal; 2019-12-05)
PROC: 0DN94ZZ Release Duodenum, Percutaneous Endoscopic Approach (ICD-10-PCS; 2019-12-05)
DX: K31.5 Obstruction of duodenum (principal); K22.2 Esophageal obstruction; K44.9 Diaphragmatic hernia without obstruction or gangrene; K66.0 Peritoneal adhesions (postprocedural) (postinfection); K26.9 Duodenal ulcer, unspecified as acute or chronic, without hemorrhage or perforation; I10 Essential (primary) hypertension
CPT/HCPCS: 36415; 43249; 43820; 44005; 74240; 74248; 80048; 85027; 85610; 85730; 88342; 94760; G0378; 88305; 88312; 88341; C1726; J0295; J0330; J1100; J1170; J1610; J1650; J1885; J2405; J2704; J3010; L0625; A9270-GY

== ENCOUNTER 2019-12-22 17:18 | Observation (INO) | payer MEDICARE, OTHER ==
[2019-12-22] MEDS ORDERED: POTASSIUM CHLORIDE 20 mEq IN WATER 100ML 100 ML IV PRN (17:28)
[2019-12-22] MEDS ORDERED: TYLENOL 325 MG PO PRN (17:30)
[2019-12-22] MEDS ORDERED: Sodium Chloride 0.9% 10 ML FLUSH Syringe IJ PRN (17:30)
[2019-12-22] MEDS ORDERED: Colace 100 MG PO PRN (17:30)
[2019-12-22] MEDS ORDERED: MILK OF MAGNESIA 30 ML PO PRN (17:30)
[2019-12-22] MEDS: POTASSIUM CHLORIDE 20 mEq IN WATER 100ML 100 ML IV SCH ×2 (19:59→22:05)
[2019-12-22] MEDS: Sodium Chloride 0.9% 500 ML 500 ML IV SCH (19:59)
[2019-12-22] MEDS: Magnesium 1 Gm / 100 Ml D5W*** 100 ML IV SCH ×2 (20:00→21:01)
[2019-12-22] MEDS: Bystolic 5 MG PO SCH (20:12)
[2019-12-22] MEDS: Sodium Chloride 0.9% 10 ML FLUSH Syringe IJ SCH (20:13)
[2019-12-22] MEDS: Zestril 10 MG PO SCH (20:13)
[2019-12-23] MEDS: POTASSIUM CHLORIDE 20 mEq IN WATER 100ML 20 MEQ/100 ML BAG IV SCH ×4 (04:18→18:00)
[2019-12-23] MEDS: Sodium Chloride 0.9% 10 ML FLUSH Syringe IJ SCH ×3 (05:04→21:01)
[2019-12-23] MEDS: Sodium Chloride 0.9% 500 ML 500 ML IV SCH ×2 (07:56→18:00)
[2019-12-23] MEDS ORDERED: Magnesium Sulfate 1 GM/2 ML VIAL IV ONE (08:30)
[2019-12-23] MEDS ORDERED: MAG-OX 400 PO SCH (10:00)
[2019-12-23] MEDS: Magnesium 1 Gm / 100 Ml D5W*** 100 ML IV SCH ×2 (10:01→10:39)
[2019-12-23] MEDS: Protonix 40MG Tablet PO SCH (10:13)
[2019-12-23] MEDS: Ferrous Sulfate (IRON) 220 MG/5 ML PO SCH ×2 (10:13→21:00)
[2019-12-23] MEDS: Bystolic 5 MG PO SCH ×2 (10:13→20:59)
[2019-12-23] MEDS: MULTIVITAMIN LIQUID PO SCH (10:15)
[2019-12-23] MEDS: NYSTOP POWDER 15 GM TP SCH ×2 (10:25→21:09)
--- NOTE | 2019-12-23 13:29 | HP ---
HISTORY OF PRESENT ILLNESS: This is a 64 year-old patient of mine who followed in the clinic yesterday after having had surgery 12/05/2019 at [facility] where she had a gastrojejunoscopy with EGD. The patient reported that she was beginning again to have more trouble swallowing her food over the past two days. She has not had any blood work checked since her last hospitalization. She denied any pain. This morning she complained of a red rash in her groin area. She reports that she was starting to eat her eggs this morning. She saw the surgeon for follow up and half of the aubrie were removed and in two more weeks they are removing the other half and then in two more weeks they are going to do another upper endoscopy for the esophageal stricture. She has had continued problems with this over the past two months and has been treated for Roro of her esophagus and had at least two if not three upper endoscopies with the general surgeon. I had the patient get blood work drawn and I was promptly called with a critical lab value for her potassium at 2.5. I called the patient and had her come in for direct admission. At that time I also ordered magnesium level which was also critical. REVIEW OF SYSTEMS: The patient denies any chest pain, shortness of breath. No fever. No abdominal pain. She reports frequent loose stools. No constipation. No dysuria. No lower extremity edema. She reports the BRITTANIE hose made her legs feel funny last night. No muscle weakness or numbness. MEDICATIONS: Please see the home medication reconciliation form. ALLERGIES: NKDA. PAST MEDICAL HISTORY: Hypertension. Hypokalemia. Anemia. History of an ulcer, esophageal stricture. History of esophageal Candidiasis. Duodenal stricture status post-surgery. PAST SURGICAL HISTORY: Appendectomy. Surgeries described in history of present illness. SOCIAL HISTORY: She lives with her significant other. No tobacco or alcohol use. FAMILY HISTORY: Noncontributory. PHYSICAL EXAMINATION: VITAL SIGNS: Temperature current 97.9F, heart rate 72, respiratory rate 18. Oxygen saturation 94% on room air. GENERAL: The patient is a pleasant talkative lady sitting up in bed in no acute distress. CVS: She has a regular rate and rhythm. No murmurs, gallops or rubs are appreciated. CHEST: Clear to auscultation bilaterally. No crackles or wheezes. ABDOMEN: A well healed scar with some aubrie left. Soft, nontender, nondistended. EXTREMITIES: No clubbing, cyanosis or edema. SKIN: She had an erythematous rash in the groin area without satellite lesions. IMPRESSION: 1) HYPOKALEMIA: She was given 40 mEq of potassium chloride overnight. Her potassium went from 2.5 to 2.6. She is getting another 40 mEq IV now with repeat labs ordered. 2) HYPOMAGNESMIA: She got 2 gm of magnesium sulfate last night. I have ordered another 2 gm today and started her on magnesium oxide 400 mg p.o. b.i.d. They can crush these tablets. 3) POOR NUTRITION: Due to the esophageal stricture, I have asked for dietary consult. I have asked for general surgeons to see her again. I have ordered folic acid, vitamin B12, vitamin D 25-hydroxy. I started a liquid multivitamin daily. 4) IRON DEFICIENCY ANEMIA: We started her oral iron that she had stopped since her last hospitalization. 5) HYPERTENSION: We decided to restart her lisinopril when she was in the clinic yesterday and will continue with this and the Bystolic and monitor her blood pressure.
[2019-12-23 15:00] LABS: ALBUMIN 2.6 g/dL (3.5-5.0); ALKALINE PHOSPHATASE 102 U/L (38-126); ANION GAP 7.4 MEQ/L (5-15); BLOOD UREA NITROGEN 6 mg/dL (7-17); CHLORIDE 104 mmol/L (98-107); Calcium 7.7 mg/dL (8.4-10.2); Carbon Dioxide 26 mmol/L (22-30); Creatinine 1 0.63 mg/dL (0.52-1.04); Folate (Folic Acid) 4.58 ng/mL (2.76 - >20); Glucose 116 mg/dL (74-106); MAGNESIUM 2.4 mg/dL (1.6-2.3); SGOT/AST 23 U/L (14-36); SGPT/ALT 13 U/L (0-35); SODIUM 134 mmol/L (137-145); Total Protein 5.6 g/dL (6.3-8.2); Vitamin B12 838 pg/mL (239-931)
[2019-12-23] MEDS ORDERED: VITAMIN D2 PO SCH (15:00)
[2019-12-23 15:20] LABS: Potassium 2.9 mmol/L (3.5-5.1)
[2019-12-23] MEDS: K-LYTE 25 MEQ PO SCH (21:00)
[2019-12-23] MEDS: Zestril 10 MG PO SCH (21:00)
[2019-12-24 05:21] LABS: ANION GAP 7.6 MEQ/L (5-15); BLOOD UREA NITROGEN 7 mg/dL (7-17); CHLORIDE 107 mmol/L (98-107); Calcium 7.7 mg/dL (8.4-10.2); Carbon Dioxide 25 mmol/L (22-30); Creatinine 1 0.57 mg/dL (0.52-1.04); Glucose 92 mg/dL (74-106); Potassium 3.5 mmol/L (3.5-5.1); SODIUM 135 mmol/L (137-145)
[2019-12-24] MEDS ORDERED: NORVASC 5 MG PO ONE (07:33)
[2019-12-24] MEDS: Sodium Chloride 0.9% 10 ML FLUSH Syringe IJ SCH (07:59)
--- NOTE | 2019-12-24 08:37 | PCM.DS ---
Discharge Summary Date of Admission: 12/22/19 18:01 Admitting Physician: ARON OTT Consults: Consults on Case 12/23/19 08:40 Consult Surgery ROUTINE Nutritional Consult Primary Care Provider: ARON OTT Allergies Allergies No Known Drug Allergies Allergy (Verified 12/22/19 18:39) Hospital Summary - Hospital Course Hospital Course: Pt is 64 yo female pt of Dr. Ott' with hypertension who came to see Dr. Ott in office and was restarted on her lisinopril due to her hypertension. She had labs drawn and potassium was 2.5 so she was [facility] to [facility] and repleted. Potassium this morning is 3.5, and Mg is 2.0 (initially was low as well). Her BP on admission were elevated, then came down to the 120s-130s until 4 pm yesterday, when they increased up to 187/80 and were in the 170s on several occasions. I gave her norvasc 5mg po x1; if effective, she may be able to d/c to home around suppertime. If BP remain elevated I let her know she may need to stay the night. - Vitals & Intake/Output Vital Signs: Vital Signs Temperature 98.2 F 12/24/19 04:00 Pulse Rate 65 12/24/19 04:00 Respiratory Rate 18 12/24/19 04:00 Blood Pressure 175/74 12/24/19 04:00 O2 Sat by Pulse Oximetry 97 12/24/19 04:00 Intake & Output: Intake & Output 12/21/19 12/22/19 12/23/19 12/24/19 11:59 11:59 11:59 11:59 Intake Total 1253 3197 Output Total 50 1450 Balance 1203 1747 Weight 82.3 kg - Lab Result Diagrams: 12/24/19 04:40 Lab Results-Last 24 Hrs: Lab Results-Last 24 Hours 12/23/19 12/23/19 12/23/19 Range/Units 12:45 12:45 12:45 Sodium 134 L (137-145) mmol/L Potassium 2.9 L* 2.9 L* (3.5-5.1) mmol/L Chloride 104 (98-107) mmol/L Carbon Dioxide 26 (22-30) mmol/L Anion Gap 7.4 (5-15) MEQ/L BUN 6 L (7-17) mg/dL Creatinine 0.63 (0.52-1.04) mg/dL Estimated GFR > 60.0 ML/MIN Glucose 116 H (74-106) mg/dL Calcium 7.7 L (8.4-10.2) mg/dL Magnesium 2.4 H (1.6-2.3) mg/dL Total Bilirubin 0.40 (0.2-1.3) mg/dL AST 23 (14-36) U/L ALT 13 (0-35) U/L Alkaline Phosphatase 102 (38-126) U/L Serum Total Protein 5.6 L (6.3-8.2) g/dL Albumin 2.6 L (3.5-5.0) g/dL Vitamin B12 838 (239-931) pg/mL 25-OH Vitamin D Total < 12.8 L (30-100) ng/mL Folic Acid 4.58 (2.76 - >20) ng/mL 12/23/19 12/24/19 Range/Units 22:20 04:40 Sodium 135 L (137-145) mmol/L Potassium 3.5 D 3.5 (3.5-5.1) mmol/L Chloride 107 (98-107) mmol/L Carbon Dioxide 25 (22-30) mmol/L Anion Gap 7.6 (5-15) MEQ/L BUN 7 (7-17) mg/dL Creatinine 0.57 (0.52-1.04) mg/dL Estimated GFR > 60.0 ML/MIN Glucose 92 (74-106) mg/dL Calcium 7.7 L (8.4-10.2) mg/dL Magnesium 2.0 (1.6-2.3) mg/dL Total Bilirubin (0.2-1.3) mg/dL AST (14-36) U/L ALT (0-35) U/L Alkaline Phosphatase (38-126) U/L Serum Total Protein (6.3-8.2) g/dL Albumin (3.5-5.0) g/dL Vitamin B12 (239-931) pg/mL 25-OH Vitamin D Total (30-100) ng/mL Folic Acid (2.76 - >20) ng/mL - Procedures and Test Procedures and Tests throughout Hospitalization: Therapy Orders & Screens 12/22/19 18:07 EKG ROUTINE Comment: Diagnosis: HYPOKALEMIA Discharge Exam General Appearance: no apparent distress, alert Neurologic Exam: oriented x 3, cooperative Eye Exam: eyes nml inspection Ears, Nose, Throat Exam: moist mucous membranes Neck Exam: normal inspection, non-tender, No lymphadenopathy Respiratory Exam: normal breath sounds, lungs clear, No crackles/rales, No rhonchi, No wheezing Cardiovascular Exam: regular rate/rhythm, normal heart sounds, No murmur Extremity Exam: normal inspection, No pedal edema, No swelling Skin Exam: normal color, warm, dry, No rash Final Diagnosis/Problem List - Final Discharge Diagnosis/Problem (1) Hypertension Current Visit: No Status: Chronic Assessment & Plan: If BP well controlled today may be able to d/c home this evening. Staff to update Dr. Ott, she can decide whether to send the pt on some amlodipine or not. Code(s): I10 - ESSENTIAL (PRIMARY) HYPERTENSION (2) Hypokalemia Current Visit: No Status: Resolved Code(s): E87.6 - HYPOKALEMIA - Discharge Disposition: Home, Self-Care Condition: Stable Prescriptions: No Action Nebivolol HCl [Bystolic] 10 mg PO BID Lisinopril 20 mg [Zestril 20 MG] 30 mg PO HS PANTOPRAZOLE 40 mg Tablet [Protonix 40MG Tablet] 40 mg PO BID Follow up with: ARON OTT [Primary Care Provider] - 1 Week
[2019-12-24] MEDS ORDERED: MAG-OX 400 PO SCH (10:00)
[2019-12-24] MEDS: K-LYTE 25 MEQ PO SCH (10:14)
[2019-12-24] MEDS: Protonix 40MG Tablet PO SCH (10:24)
[2019-12-24] MEDS: Bystolic 5 MG PO SCH (10:24)
[2019-12-24] MEDS: Ferrous Sulfate (IRON) 220 MG/5 ML PO SCH (10:26)
[2019-12-24] MEDS: MULTIVITAMIN LIQUID PO SCH (10:26)
[2019-12-24] MEDS: NYSTOP POWDER 15 GM TP SCH (10:29)
[2019-12-24 16:32] VITALS: BP 164/70; PULSE 64; O2SAT 99
--- NOTE | 2019-12-24 17:15 | PCM.DCORD ---
- Discharge Discharge Date: 12/24/19 Disposition: Home, Self-Care Condition: Good Prescriptions: New Ferrous Sulfate 220 mg/5 ml [Ferrous Sulfate (IRON) 220 MG/5 ML] 325 mg PO BID #250 ml Potassium Bicarbonate 25 MEQ [K-Lyte 25 Meq] 25 meq PO BID #60 tab Magnesium Oxide 400 mg [Mag-Ox 400] 400 mg PO DAILY #30 tablet Multivitamin Liquid 15 ml PO DAILY #450 ml Nystatin Powder 15 gm [Nystop Powder 15 gm] 15 gm TP BID #250 g Ergocalciferol (Vitamin D2) [Vitamin D2] 50,000 unit PO Q7D #12 capsule Amlodipine Besylate 5 mg [Norvasc 5 mg] 5 mg PO DAILY #30 tablet Continue Nebivolol HCl [Bystolic] 10 mg PO BID Lisinopril 20 mg [Zestril 20 MG] 30 mg PO HS PANTOPRAZOLE 40 mg Tablet [Protonix 40MG Tablet] 40 mg PO BID #60 tab Follow up with: ARON OTT [Primary Care Provider] - 1 Week
== END 2019-12-24 17:58 | disposition home or self-care (01) ==
LOC: MED SURG 18:01
PROVIDERS: ADMIT Internal Medicine; ATTEND Internal Medicine
DX: E87.6 Hypokalemia (principal); E83.42 Hypomagnesemia; D50.9 Iron deficiency anemia, unspecified; I10 Essential (primary) hypertension; Z79.899 Other long term (current) drug therapy
CPT/HCPCS: 36415; 80048; 80053; 82306; 82607; 82746; 83735; 84132; 93005; 93268; G0378; J3475; J3480; A9270-GY

== ENCOUNTER 2020-01-15 07:25 | Day surgery (SDC) | payer MEDICARE, OTHER ==
--- NOTE | 2020-01-13 10:13 | HP ---
DATE OF SURGERY: 01/15/2020 ANTICIPATED PROCEDURE: EGD with dilatation. HISTORY OF PRESENT ILLNESS: The patient presents for follow up EGD dilatation. She is about six weeks out. She also had distal obstruction treated with jejunostomy. She now presents for re-evaluation of her esophageal stricture. PAST MEDICAL HISTORY: ALLERGIES: NONE. MEDICATIONS: See list. PAST SURGICAL HISTORY: Cholecystectomy. Appendectomy. SOCIAL HISTORY: Negative. FAMILY HISTORY: Negative. REVIEW OF SYSTEMS: Hypertension. PHYSICAL EXAMINATION: VITAL SIGNS: Normal. CHEST: Clear. COR: Regular. IMPRESSION: The patient presents for six week redilatation of her esophageal stricture. PLAN: EGD dilatation.
[2020-01-15] MEDS ORDERED: Lactated Ringers 1,000 ML IV SCH (08:00)
[2020-01-15] MEDS ORDERED: Lactated Ringers 1,000 ML IV ONE ×2 (08:08→08:19)
[2020-01-15] MEDS ORDERED: DIPRIVAN 200 MG/20 ML IV ONE ×2 (09:53→10:08)
[2020-01-15 11:21] VITALS: O2SAT 100
[2020-01-15 11:27] VITALS: BP 155/72; PULSE 61
--- NOTE | 2020-01-15 13:02 | OP ---
SURGERY DATE/TIME: 01/15/2020 1009 PREOPERATIVE DIAGNOSIS: Severe esophageal chronic stricture. POSTOPERATIVE DIAGNOSIS: Severe esophageal chronic stricture. PROCEDURE: EGD with balloon dilatation, size 10. SURGEON: Gigi Elizabeth M.D. ANESTHESIA: MAC. COMPLICATIONS: None. CONDITION: Stable. INDICATION: The patient had both esophageal stricture and duodenal bulb stricture, had a previous gastrojejunostomy, presents for follow up of the esophageal stricture. She is having some difficulty eating except for broth at this time. DESCRIPTION OF PROCEDURE: Taken to the endoscopy. Left lateral decubitus position. Satisfactory MAC sedation was present. The scope was introduced. The pharyngoesophageal junction is normal. The esophagus starts early on this patient. She is very short stature, very short chin. It starts at 15 cm. From 15 to 30 is normal. The scope does not pass at 30. About 1 cm of the lumen does not look quite that abnormal. It is not raw or irritated but it is still obstructed here. Then the stricture starts and was several centimeters long. The size 10 balloon was placed. We had the pediatric small scope which was very small. It is amazing that this scope does not go through this area. It was insufflated to level 1 and it was insufflated to level 2. There was a little bit of bleeding. The scope then followed the balloon in. The balloon was then totally withdrawn. The pylorus was satisfactory. Duodenal bulb still had a pinpoint stricture at its outlet. The gastrojejunostomy afferent and efferent limbs were open. It looked excellent. The PDS sutures were still in place and were dissolving and were clear. Looped back on itself about an ounce of gastric fluid with a small amount of bile. There was no vegetable contents at all. I believe the motility here in the anastomosis was doing excellent. Backing back up to the esophageal stricture there is a 4 cm hiatal hernia and then there is about a 4 cm long stricture. The stricture still appears benign. All biopsies have been benign to date. It is slightly irritated, slightly flaky in nature. It certainly has been dilated to size 10. It does not look like there are any technical issues. PLAN: We will see her back in the office in four weeks and we will probably redilate it at six weeks. To date, we have not gotten dilatation to stick in this severe chronic stricture although there has been improvement. We have mentioned options. I do not think a stent is much of an option in this patient. A resection with esophagogastric anastomosis probably would be the only major alternative to dilating.
== END 2020-01-15 11:15 | disposition home or self-care (01) ==
LOC: SDC 07:25
PROVIDERS: ATTEND Surgery
DX: K22.2 Esophageal obstruction (principal); K44.9 Diaphragmatic hernia without obstruction or gangrene
CPT/HCPCS: 94250; C1726; J2704

== ENCOUNTER 2020-02-25 11:19 | Day surgery (SDC) | payer MEDICARE, OTHER ==
[~2020-02-25 11:19] MED LIST: Lactated Ringers 1,000 ML IV SCH
[2020-02-25] MEDS ORDERED: Lactated Ringers 1,000 ML IV ONE ×2 (11:34→13:49)
[2020-02-25 11:47] VITALS: O2SAT 100
[2020-02-25] MEDS ORDERED: DIPRIVAN 200 MG/20 ML IV ONE ×3 (13:40→14:09)
[2020-02-25 15:10] VITALS: BP 150/64; PULSE 61
--- NOTE | 2020-02-26 09:20 | OP ---
SURGERY DATE/TIME: 02/25/2020 1539 PREOPERATIVE DIAGNOSIS: Esophageal stricture. POSTOPERATIVE DIAGNOSIS: Esophageal stricture. PROCEDURE: EGD with esophageal dilation. SURGEON: Ariel Elizabeth M.D. ANESTHESIA: MAC. SPECIMENS: None. PATIENT CONDITION: Stable. INDICATIONS: The patient is a 64 year-old female being followed for benign stricture of the esophagus. She has undergone previous gastrojejunostomy for concomitant duodenal stricture. She has been dilated multiple times for esophageal stricture. Last exam four to six weeks ago. She had some resolution of her symptoms, tolerating more solid foods. She has not lost weight since that time however has had increasing dysphagia to solid foods like before dilation. She had been putting off dilation due to COVID-19 and scheduling. Risk of infection, bleeding, perforation, recurrence and failure were discussed with the patient and she elected to proceed. FINDINGS: Mid esophageal stricture unable to pass the scope initially. A 10 balloon was tight. It was dilated up to 10. Scope was still unable to pass. The stricture was dilated up to a 12 balloon. At that point the scope was able to pass. There is moderate gastritis. Duodenum still duodenal stricture. There is no real lumen. The gastrojejunostomy is widely patent. DESCRIPTION OF PROCEDURE: The patient was brought to the endoscopy suite. She was routinely positioned. MAC anesthesia was induced. Time out was performed. EGD was introduced per the mouth. The upper esophagus was normal. In the mid esophagus a stricture was encountered. Unable to pass the scope. There was small mucosal disruption with the scope. The lumen was visible. A 10 balloon was passed without any resistance through the stricture. It was then dilated up with a 10 balloon. This was held for two minutes. The balloon was taken down. The scope was attempted to be advanced. The scope was still unable to be advanced. A 12 mm balloon was placed again with no resistance. This was dilated up 12. This was held for three minutes. Balloon was taken down. Scope was then able to be passed through the stricture. Scope advanced to the stomach. There is moderate gastritis. Duodenum still with stricture. The gastrojejunostomy was widely patent. There is a small hiatal hernia. The scope was withdrawn. The area of stricture did have mucosal disruption. There was no evidence of muscular disruption. There was mild ooze that was hemostatic at the completion. Scope was then withdrawn. Overall the patient tolerated the procedure well. PLAN: The patient is going to be discharged on a full liquid diet. She is to have a repeat EGD and dilation in two weeks.
== END 2020-02-25 15:13 | disposition home or self-care (01) ==
LOC: SDC 11:19
PROVIDERS: ATTEND Surgery
DX: K22.2 Esophageal obstruction (principal); K29.70 Gastritis, unspecified, without bleeding; I10 Essential (primary) hypertension; Z79.899 Other long term (current) drug therapy
CPT/HCPCS: C1726; J2704

== ENCOUNTER 2020-03-11 07:54 | Day surgery (SDC) | payer MEDICARE, OTHER ==
[2020-03-11 08:18] VITALS: O2SAT 100
[2020-03-11] MEDS ORDERED: Lactated Ringers 1,000 ML IV ONE (08:27)
[2020-03-11] MEDS ORDERED: DIPRIVAN 200 MG/20 ML IV ONE ×3 (08:52→10:03)
[2020-03-11] MEDS ORDERED: Xylocaine-Mpf 2% 5 Ml Vial ONE (08:52)
--- NOTE | 2020-03-11 10:43 | OP ---
SURGERY DATE/TIME: 03/11/2020 0838 PREOPERATIVE DIAGNOSIS: Esophageal stricture. POSTOPERATIVE DIAGNOSIS: Esophageal stricture. PROCEDURE: EGD with dilation of the esophageal stricture. SURGEON: Ariel Elizabeth M.D. ANESTHESIA: MAC. FINDINGS: Mid esophageal stricture. There is minimal improvement from before prior EGD dilation two weeks ago. Unable to pass the scope. A 12 mm balloon was used to redilate. The scope was passed. Ultimately a 15 mm balloon was used to dilate and there was mucosal disruption, exposed muscle fibers but no perforation. DESCRIPTION OF PROCEDURE: The patient was brought to the endoscopy suite. Time out was performed. Scope advanced through the mouth, advanced through the mid esophagus. There her stricture was visible. The scope was unable to be passed through this stricture. A 12 mm balloon was passed with no resistance and this was dilated up to 12. The scope was then able to be passed through the stricture into the stomach. Her gastrojejunostomy was visible patent. There was moderate gastritis. The scope was withdrawn back in the esophagus. The stricture was evaluated. There was some mucosal disruption with bleeding. There was no exposed muscle at that time. A 15 mm balloon was then advanced and stricture was dilated to 15 due to the length of the stricture this was in two locations. At the completion the 15 balloon slid without resistance throughout the whole stricture. The stricture was re-evaluated. There was diffuse mucosal disruption. There were exposed muscle fibers. No perforation. The scope was advanced and de la paz suctioned and then withdrawn. Overall the patient tolerated the procedure well and was taken to recovery in stable condition.
[2020-03-11 11:38] VITALS: PULSE 57
[2020-03-11 11:39] VITALS: BP 148/86
== END 2020-03-11 11:25 | disposition home or self-care (01) ==
LOC: SDC 07:54
PROVIDERS: ATTEND Surgery
DX: K22.2 Esophageal obstruction (principal)
CPT/HCPCS: C1726; J2704

== ENCOUNTER 2020-03-25 11:27 | Day surgery (SDC) | payer MEDICARE, OTHER ==
[2020-03-25] MEDS ORDERED: Lactated Ringers 1,000 ML IV SCH (12:00)
[2020-03-25 12:04] VITALS: O2SAT 100
[2020-03-25] MEDS ORDERED: DIPRIVAN 200 MG/20 ML IV ONE ×2 (13:27→13:51)
[2020-03-25 15:29] VITALS: BP 158/68; PULSE 68
--- NOTE | 2020-03-26 08:00 | OP ---
SURGERY DATE/TIME: 03/25/2020 1328 PREOPERATIVE DIAGNOSIS: Esophageal stricture. POSTOPERATIVE DIAGNOSIS: Esophageal stricture. PROCEDURE: Esophagogastroduodenoscopy and esophagogastrojejunoscopy with dilation of the esophageal stricture. SURGEON: Ariel Elizabeth M.D. ANESTHESIA: IV. ESTIMATED BLOOD LOSS: 25. SPECIMENS: None. PATIENT CONDITION: Stable. COMPLICATIONS: None. INDICATIONS: The patient is a 64 year-old female being followed for difficult esophageal stricture. She also had a duodenal stricture with gastrojejunoscopy. Her last scope was dilated up to a 15 mm balloon two weeks ago. Risk of infection, bleeding, perforation were discussed with the patient and she elected to proceed. FINDINGS: Mid esophageal stricture with some improvement. The scope passed easily. There is still some moderate gastritis. Gastrojejunum is open. Ultimately the mid esophageal stricture was dilated with a 15 balloon and then an 18 mm balloon. DESCRIPTION OF PROCEDURE: The patient was brought to the endoscopy suite. Time out was performed. She was positioned. Scope was introduced through the mouth and advanced going easily through the stricture. It was advanced into the stomach, advanced to the duodenum where there was essentially blind end after the bulb. The scope withdrawn. There is moderate gastric antritis. The scope was advanced into the gastrojejunostomy which was healthy. The scope was then withdrawn. The stricture was evaluated. A 15 mm balloon was advanced. The stricture was dilated with 15 balloon. There was just mild resistance on the 15 mm balloon and the 15 mm balloon thread freely after insufflation. There was some mucosal disruption after the 15 mm balloon. It was withdrawn. The area is re-evaluated. There is no muscular disruption. The 18 mm balloon was advanced. The stricture was dilated with 18 mm balloon in three stages this held for a few minutes at 18. The balloon was then brought down and withdrawn. The stricture was re-evaluated. There was some mucosal disruption with some scant bleeding this was irrigated. It was ultimately hemostatic. The stomach was desufflated and the scope was withdrawn. PLAN: Follow up in two weeks for repeat endoscopy. Ultimately if she fails we may need to refer her for stents.
== END 2020-03-25 14:55 | disposition home or self-care (01) ==
LOC: SDC 11:27
PROVIDERS: ATTEND Surgery
DX: K22.2 Esophageal obstruction (principal)
CPT/HCPCS: C1726; J2704

== ENCOUNTER 2020-04-08 05:57 | Day surgery (SDC) | payer MEDICARE, OTHER ==
--- NOTE | 2020-04-05 15:20 | HP ---
DATE OF SURGERY: 04/08/2020 HISTORY OF PRESENT ILLNESS: The patient is a 64 year-old female who presented to the office with complaints of dysphagia. The patient is well known to our services. The patient has had multiple EGD's with dilatation recently. Her last EGD with dilatation was on 03/11/[address] Ariel Elizabeth. She had a mid-esophageal stricture. He used a 15 mm balloon to dilate the esophagus. The patient now reports with some dysphagia. PAST MEDICAL HISTORY: High blood pressure. Esophageal stricture. Duodenal stricture. PAST SURGICAL HISTORY: Gastric jejunostomy. Cholecystectomy. Appendectomy. MEDICATIONS: Per the chart. ALLERGIES: NKDA. FAMILY HISTORY: Cancer. SOCIAL HISTORY: Negative. REVIEW OF SYSTEMS: CONSTITUTIONAL: Denies fever or chills. CHEST: Denies shortness of breath or cough. CVS: Denies chest pain. ABDOMEN: Denies abdominal pain, diarrhea, constipation or rectal bleeding. Reports dysphagia, vomiting and some vomiting. : Denies dysuria or hematuria. EXTREMITIES: Denies swelling. PHYSICAL EXAMINATION: GENERAL: No acute distress. HEENT: No jaundice. Oral mucosa moist. NECK: No JVD. CHEST: Nonlabored. No shortness of breath. ABDOMEN: Soft, nondistended, nontender. EXTREMITIES: No swelling. INTEGUMENTARY: Warm, pink, no rash. NEUROLOGIC: Awake, alert, oriented. PSYCHIATRIC: Appropriate mood and affect. ASSESSMENT: A patient with recurrent esophageal stricture, dysphagia. PLAN: EGD with dilatation with Dr. Gigi Elizabeth. As dictated by Etelvina Wilson NP.
[2020-04-08] MEDS ORDERED: Lactated Ringers 1,000 ML IV SCH (06:30)
[2020-04-08] MEDS ORDERED: DIPRIVAN 200 MG/20 ML IV ONE ×2 (08:15→08:31)
[2020-04-08] MEDS ORDERED: BREVIBLOC 100 MG/10 ML IV ONE (08:32)
[2020-04-08 09:23] VITALS: BP 164/80; PULSE 70; O2SAT 99
--- NOTE | 2020-04-08 10:53 | OP ---
SURGERY DATE/TIME: 04/08/2020812 PREOPERATIVE DIAGNOSIS: Chronic esophageal stricture with sequential dilatation required. POSTOPERATIVE DIAGNOSIS: Chronic esophageal stricture with sequential dilatation required. PROCEDURE: EGD with balloon dilatation of esophageal stricture with size 18 balloon. SURGEON: Gigi Elizabeth M.D. ANESTHESIA: MAC. COMPLICATIONS: None. CONDITION: Stable. INDICATION: The patient has a known esophageal stricture. It was nearly pinpoint originally. At this time she has actually been able to eat nearly two weeks. She is starting to have a little issue here the last couple of days. DESCRIPTION OF PROCEDURE: She is taken to endoscopy, left lateral decubitus position. MAC sedation provided. Pharyngoesophageal junction cannulated. The stricture is at 34 cm. The stricture is about an inch long. The gastroscope could not be placed across initially. The balloon was placed across. It was size 18 insufflated to first stage for 1 minute. It was pulled out and inspected. It was repositioned and it was blown up a second time for 1 minute. The scope could then go through. The scope looped upon itself from below. The general nature of benign stricture. There was some material on the balloon and the scope that was sent for pathology. There was a hiatal hernia about 3 inches. Body and antrum normal. Antrum normal. The patient had a previous gastroenterostomy. The scope looped upon itself. The area of concern was satisfactory from below with about a 3 inch hiatal hernia. Scope is withdrawn above this stricture. Mucosa was abraded a little bit as expected from the balloon and looked satisfactory. It was about a size 30 at this time. Scope withdrawn. PLAN: Sequential dilatation.
== END 2020-04-08 09:39 | disposition home or self-care (01) ==
LOC: SDC 05:57
PROVIDERS: ATTEND Surgery
DX: K22.2 Esophageal obstruction (principal); K44.9 Diaphragmatic hernia without obstruction or gangrene; Z79.899 Other long term (current) drug therapy
CPT/HCPCS: 88305; C1726; J2704

== ENCOUNTER 2020-04-21 06:54 | Day surgery (SDC) | payer MEDICARE, OTHER ==
[2020-04-21] MEDS ORDERED: Lactated Ringers 1,000 ML IV SCH (07:00)
[2020-04-21 07:21] VITALS: PULSE 70; O2SAT 100
[2020-04-21] MEDS ORDERED: DIPRIVAN 200 MG/20 ML IV ONE ×3 (08:29→09:24)
[2020-04-21] MEDS ORDERED: Xylocaine-Mpf 2% 5 Ml Vial ONE (08:29)
[2020-04-21] MEDS ORDERED: Ketamine HCl 50 MG/ML ONE (08:31)
[2020-04-21 11:13] VITALS: BP 151/72
--- NOTE | 2020-04-21 12:29 | OP ---
SURGERY DATE/TIME: 04/21/2020 0904 PREOPERATIVE DIAGNOSIS: Esophageal stricture. POSTOPERATIVE DIAGNOSIS: Esophageal stricture. PROCEDURE: EGD with dilatation of esophageal stricture. SURGEON: Ariel Elizabeth M.D. ANESTHESIA: MAC. FINDINGS: Scope passed stricture without significant resistance, 15 balloon with essentially no waste, an 18 balloon was used and 20 balloon was only used for the second stage. There was mucosal disruption afterwards but no muscular involvement. DESCRIPTION OF PROCEDURE: The patient was brought to the endoscopy suite. She was positioned. Time out was performed. Scope was introduced in the mouth advanced pass the stricture without significant resistance. It was advanced to the stomach. There is mild gastritis in the stomach. It had been previously biopsied. The gastrojejunostomy was patent. The 15 balloon was placed and balloon withdrawn through the stricture this was inflated. There was not really much waste from the 15 balloon and it slid easily. An 18 balloon was placed and then brought up. At the completion of the 18 balloon there was some mucosal disruption. There is no muscular visible. The 20 balloon was placed and brought up to the first stage and then the second stage. It was held there. It was then brought down. This was examined. There was a scant amount of blood with fair mucosal disruption results. The muscular layer was visible but appeared intact. Dilatation was stopped at that point. Desufflation of the stomach and scope withdrawn and the patient was taken to recovery in stable condition.
== END 2020-04-21 10:45 | disposition home or self-care (01) ==
LOC: SDC 06:54
PROVIDERS: ATTEND Surgery
DX: K22.2 Esophageal obstruction (principal); K29.70 Gastritis, unspecified, without bleeding
CPT/HCPCS: C1726; J2704

== ENCOUNTER 2020-05-06 09:29 | Day surgery (SDC) | payer MEDICARE, OTHER ==
--- NOTE | 2020-04-29 11:12 | HP ---
DATE OF SURGERY: 05/06/2020 HISTORY OF PRESENT ILLNESS: The patient presents with history of chronic esophageal stricture. She has been dilated through our service several times. Her last dilatation was with Dr. Ariel Elizabeth 04/21/2020. We did refer her to Dr. [facility] at . She does have an appointment to see them in late May. She does have complaints of dysphagia currently. We hope to achieve possible esophageal stenting with our referral. We will proceed with EGD with dilatation while the patient is symptomatic. PAST MEDICAL HISTORY: Hypertension. Reflux. Iron deficiency anemia. PAST SURGICAL HISTORY: Cholecystectomy. Appendectomy. Gastrojejunostomy. ALLERGIES: NKDA. MEDICATIONS: Bystolic. Lisinopril. Amlodipine. Pantoprazole. Tylenol. Ferrous Sulfate. FAMILY HISTORY: Mother with cancer. SOCIAL HISTORY: Negative. REVIEW OF SYSTEMS: CONSTITUTIONAL: Denies fever or chills. CHEST: Denies shortness of breath. CVS: Denies chest pain. ABDOMEN: Denies abdominal pain, nausea, vomiting, diarrhea, constipation or rectal bleeding. Reports dysphagia. : Denies dysuria or hematuria. PHYSICAL EXAMINATION: GENERAL: No acute distress. CHEST: Nonlabored. No shortness of breath. CVS: Regular rate and rhythm. ABDOMEN: Soft, nontender to palpation. EXTREMITIES: No edema. NEUROLOGIC: Alert. PSYCHIATRIC: Appropriate ASSESSMENT: Chronic esophageal stricture with dysphagia. PLAN: EGD with dilatation with Dr. Gigi Elizabeth. As dictated by Etelvina Wilson NP.
[2020-05-06] MEDS ORDERED: Lactated Ringers 1,000 ML IV SCH (10:00)
[2020-05-06] MEDS ORDERED: DIPRIVAN 200 MG/20 ML IV ONE (11:30)
[2020-05-06] MEDS ORDERED: Ketamine HCl 50 MG/ML ONE (11:31)
[2020-05-06] MEDS ORDERED: Lactated Ringers 1,000 ML IV ONE (14:55)
[2020-05-06 15:02] VITALS: O2SAT 99
--- NOTE | 2020-05-06 15:07 | OP ---
SURGERY DATE/TIME: 05/06/2020 1430 PREOPERATIVE DIAGNOSIS: Esophageal stricture getting sequential dilatation. POSTOPERATIVE DIAGNOSIS: Esophageal stricture getting sequential dilatation. PROCEDURE: EGD and balloon dilatation size 18. SURGEON: Gigi Elizabeth M.D. ANESTHESIA: MAC. COMPLICATIONS: None. CONDITION: Stable. INDICATION: INDICATION: The patient has severe stricture. She had sequential dilatation. We had been gaining some ground. She has eaten fairly well and she looks quite good. DESCRIPTION OF PROCEDURE: She is taken to endoscopy. Left lateral decubitus position. MAC sedation provided. Scope introduced. Pharyngoesophageal junction normal. The stricture is just one hair following the scope. The scope was backed off. The balloon placed through and insufflated lightly and then the balloon and the scope could be advanced. After advancing and coming back to the stricture, it was insufflated in the mid stricture size 18 for 30 seconds. Some slight oozing. Scope reintroduced and looked good. The gastrojejunostomy looked good. The duodenal bulb was satisfactory and the pinpoint stricture at the edge of the duodenal bulb as previously noted. The patient tolerated the procedure satisfactorily. It certainly seems like we have gained some ground although she still has a very severe chronic stricture of the mid esophagus with 4 inch hiatal hernia.
[2020-05-06 15:23] VITALS: BP 177/68; PULSE 60
== END 2020-05-06 15:37 | disposition home or self-care (01) ==
LOC: SDC 09:29
PROVIDERS: ATTEND Surgery
DX: K22.2 Esophageal obstruction (principal)
CPT/HCPCS: C1726; J2704